=== PATIENT | female | born 1975 | race Caucasian/White ===

== ENCOUNTER → 2016-07-13 | Outpatient (CLI) | payer OTHER ==
--- NOTE | 2016-07-13 15:35 | MR ---
EXAMINATION TYPE: MR cervical spine wo con DATE OF EXAM: 07/13/2016 2:58 PM COMPARISON: NONE HISTORY: neck pain, arm pain, limited ROM for 6 months TECHNIQUE: Multiplanar, multisequence images of the cervical spine were acquired. C2-C3: No evidence for degenerative disc disease. No disc bulge/herniation or protrusion. No Canal stenosis. Foramina are patent bilaterally. C3-C4: Posterior broad-based disc bulge causes minimal anterior mass effect on the thecal sac. C4-C5: Posterior circumferential extension of endplate disc complex results in bilateral foraminal en croachment left greater than right, there is mild anterior mass effect on the thecal sac. No signific ant central stenosis. C5-C6: Posterior extension endplate disc complex causes mild anterior mass effect on the thecal sac, from encroachment is greater on the left than right. C6-C7: Posterior disc herniation may contact the anterior cervical cord, there is mild to moderate ce ntral canal stenosis. Circumferential extension endplate disc complex results in foraminal encroachme nt greater on the left than on the right, disc herniation thought to be eccentric towards the left ca using anterolateral mass effect on the thecal sac. C7-T1: No evidence for degenerative disc disease. No disc bulge/herniation or protrusion. No Canal stenosis. Foramina are patent bilaterally. Cervical segments are intact. There is normal alignment and vertebral body height. Cervical spinal cord is of normal signal. Loss of disc height and signal is greatest at C3-4, C4-5, C5-6 and C6-7 com patible with disc desiccation and degenerative disc disease. Craniovertebral junction relationships a re within normal limits. Spinal curvature suspected in the thoracic spine. IMPRESSION: Degenerative disc disease, disc herniation greatest at C6-7 causing canal stenosis, foraminal encroac hment greater on the left than on the right, correlate for left C7 radiculopathy. Possible thoracic s coliosis.
== END | disposition home or self-care (01) ==
LOC: RADMRIMAIN 14:21
PROVIDERS: ATTEND Psychiatry & Neurology Pain Medicine
DX: M48.02 Spinal stenosis, cervical region (principal); M50.223 Other cervical disc displacement at C6-C7 level; M50.323 Other cervical disc degeneration at C6-C7 level
CPT/HCPCS: 72141

== ENCOUNTER 2018-03-02 09:55 | Emergency (ER) | payer OTHER ==
[2018-03-02 10:14] VITALS: RESP 18
[2018-03-02] MEDS ORDERED: SODIUM CHLORIDE 0.9% 1,000 ML IV ONE (10:32)
--- NOTE | 2018-03-02 10:34 | ED ---
Female Urogenital HPI - General Chief complaint: Vaginal Bleeding Stated complaint: heavy bleeding Time Seen by Provider: 03/02/18 10:18 Source: patient, RN notes reviewed, old records reviewed Mode of arrival: ambulatory Limitations: no limitations - History of Present Illness Initial comments: Patient is a 42-year-old female presents the emergency department today with chief complaint of vaginal bleeding. She reports that she's had 3 periods within the past month. Patient reports that she called her OB. Patient reports that she's had more than 3 pads in the past hour and blood through 2 tampons. Patient states that she had her tubes tied a few years ago. Patient is concerned with the significant bleeding she's had a history of anemia and had to be in admitted in patiently in the past. She's had multiple blood transfusions from vaginal bleeding. Patient reports a few months ago she had another episode of heavy bleeding such as this. She called her primary care doctor and she is told to come here. Last Menstrual Period: 03/01/18 - Related Data Home Medications Medication Instructions Recorded Confirmed Multivitamins, Thera [Multivitamin] 1 tab PO DAILY 10/12/15 12/02/15 Folic(Dose Unknown) 1 tab PO DAILY 12/02/15 12/05/15 Vitamin B 12(Dose Unknown) 1 tab PO DAILY 12/02/15 12/02/15 Vitamin D 3(Dose Unknown) 1 tab PO DAILY 12/02/15 12/05/15 Previous Rx's Medication Instructions Recorded Desog-E.estradiol/E.estradiol 1 each PO DIRECTED #21 tablet 03/02/18 [Mircette 28 Day Tablet] Allergies Allergy/AdvReac Type Severity Reaction Status Date / Time latex Allergy Rash/Hives Verified 03/02/18 10:14 Review of Systems ROS Statement: Those systems with pertinent positive or pertinent negative responses have been documented in the HPI. ROS Other: All systems not noted in ROS Statement are negative. Past Medical History Past Medical History: Asthma, Pneumonia, Respiratory Disorder Additional Past Medical History / Comment(s): Obesity and she had Lap band and she lost >200 pounds since 2010, childhood asthma History of Any Multi-Drug Resistant Organisms: None Reported Past Surgical History: Bariatric Surgery, Cholecystectomy Additional Past Surgical History / Comment(s): lap band, oopherectomy Past Anesthesia/Blood Transfusion Reactions: No Reported Reaction Additional Past Anesthesia/Blood Transfusion Reaction / Comment(s): no family hx -adopted Past Psychological History: No Psychological Hx Reported Past Alcohol Use History: None Reported - Past Family History Father Family Medical History: Unable to Obtain Additional Family Medical History / Comment(s): patient was adopted General Exam - General Exam Comments Initial Comments: This is a 42-year-old female. Alert and oriented. No significant distress. Limitations: no limitations General appearance: alert, in no apparent distress Head exam: Present: atraumatic, normocephalic, normal inspection Eye exam: Present: normal appearance, PERRL, EOMI. Absent: scleral icterus, conjunctival injection, periorbital swelling ENT exam: Present: normal exam, mucous membranes moist Neck exam: Present: normal inspection. Absent: tenderness, meningismus, lymphadenopathy Respiratory exam: Present: normal lung sounds bilaterally. Absent: respiratory distress, wheezes, rales, rhonchi, stridor Cardiovascular Exam: Present: regular rate, normal rhythm, normal heart sounds. Absent: systolic murmur, diastolic murmur, rubs, gallop, clicks GI/Abdominal exam: Present: soft, normal bowel sounds. Absent: distended, tenderness, guarding, rebound, rigid Speculum exam: Present: vaginal bleeding. Absent: normal speculum exam By manual exam: Present: normal by manual exam Extremities exam: Present: normal inspection, full ROM, normal capillary refill. Absent: tenderness, pedal edema, joint swelling, calf tenderness Back exam: Present: normal inspection Neurological exam: Present: alert, oriented X3, CN II-XII intact Psychiatric exam: Present: normal affect, normal mood Course Vital Signs 03/02/18 03/02/18 10:12 13:38 Temperature 98.4 F 98.2 F Pulse Rate 63 64 Respiratory 18 18 Rate Blood Pressure 135/87 130/74 O2 Sat by Pulse 100 98 Oximetry Medical Decision Making - Medical Decision Making 42-year-old female presents to return with severe heavy vaginal bleeding. She is going through 2 blue check pads while she was here. Her hemoglobin is stable at time of 12.0. Ultrasound shows evidence of the leiomyoma. She's also help with TECHNICAL DATA ANALYST Dr. Lynn next week. She is concerned it may be tension was applied and the bleeding is coming more severe and she seemed be more anemic. We did call Dr. Lynn. He recommended 1 g of T x-ray. We'll also start the Patient on hormones until he follows up with her. Patient will also be started on antibiotics for urinary tract infection. Urine culture obtained. Patient understands treatment plan will comply. Return parameters were discussed. - Lab Data Result diagrams: 03/02/18 11:05 03/02/18 11:05 Lab Results 03/02/18 03/02/18 03/02/18 Range/Units 11:05 11:05 11:05 WBC 8.7 (3.8-10.6) k/uL RBC 4.40 (3.80-5.40) m/uL Hgb 12.8 (11.4-16.0) gm/dL Hct 41.2 (34.0-46.0) % MCV 93.7 (80.0-100.0) fL MCH 29.1 (25.0-35.0) pg MCHC 31.0 (31.0-37.0) g/dL RDW 14.1 (11.5-15.5) % Plt Count 240 (150-450) k/uL Neutrophils % (Manual) 77 % Lymphocytes % (Manual) 20 % Monocytes % (Manual) 3 % Neutrophils # (Manual) 6.70 (1.3-7.7) k/uL Lymphocytes # (Manual) 1.74 (1.0-4.8) k/uL Monocytes # (Manual) 0.26 (0-1.0) k/uL Nucleated RBCs 0 (0-0) /100 WBC Poikilocytosis (manual Present Anisocytosis (manual) Present Sodium 139 (137-145) mmol/L Potassium 4.2 (3.5-5.1) mmol/L Chloride 108 H (98-107) mmol/L Carbon Dioxide 25 (22-30) mmol/L Anion Gap 6 mmol/L BUN 16 (7-17) mg/dL Creatinine 0.70 (0.52-1.04) mg/dL Est GFR (CKD-EPI)AfAm >90 (>60 ml/min/1.73 sqM) Est GFR (CKD-EPI)NonAf >90 (>60 ml/min/1.73 sqM) Glucose 90 (74-99) mg/dL Calcium 8.6 (8.4-10.2) mg/dL Total Bilirubin 1.1 (0.2-1.3) mg/dL AST 16 (14-36) U/L ALT 23 (9-52) U/L Alkaline Phosphatase 52 (38-126) U/L Total Protein 6.3 (6.3-8.2) g/dL Albumin 3.4 L (3.5-5.0) g/dL Urine Color Yellow Urine Appearance Cloudy H (Clear) Urine pH 7.5 (5.0-8.0) Ur Specific Fossil 1.018 (1.001-1.035) Urine Protein Trace H (Negative) Urine Glucose (UA) Negative (Negative) Urine Ketones Negative (Negative) Urine Blood Large H (Negative) Urine Nitrite Positive H (Negative) Urine Bilirubin Negative (Negative) Urine Urobilinogen <2.0 (<2.0) mg/dL Ur Leukocyte Esterase Large H (Negative) Urine RBC >182 H (0-5) /hpf Urine WBC 57 H (0-5) /hpf Ur Squamous Epith Cells 2 (0-4) /hpf Amorphous Sediment Rare H (None) /hpf Urine Bacteria Many H (None) /hpf Urine Mucus Rare H (None) /hpf Blood Type Blood Type Recheck Antibody Screen Spec Expiration Date 03/02/18 Range/Units 11:05 WBC (3.8-10.6) k/uL RBC (3.80-5.40) m/uL Hgb (11.4-16.0) gm/dL Hct (34.0-46.0) % MCV (80.0-100.0) fL MCH (25.0-35.0) pg MCHC (31.0-37.0) g/dL RDW (11.5-15.5) % Plt Count (150-450) k/uL Neutrophils % (Manual) % Lymphocytes % (Manual) % Monocytes % (Manual) % Neutrophils # (Manual) (1.3-7.7) k/uL Lymphocytes # (Manual) (1.0-4.8) k/uL Monocytes # (Manual) (0-1.0) k/uL Nucleated RBCs (0-0) /100 WBC Poikilocytosis (manual Anisocytosis (manual) Sodium (137-145) mmol/L Potassium (3.5-5.1) mmol/L Chloride (98-107) mmol/L Carbon Dioxide (22-30) mmol/L Anion Gap mmol/L BUN (7-17) mg/dL Creatinine (0.52-1.04) mg/dL Est GFR (CKD-EPI)AfAm (>60 ml/min/1.73 sqM) Est GFR (CKD-EPI)NonAf (>60 ml/min/1.73 sqM) Glucose (74-99) mg/dL Calcium (8.4-10.2) mg/dL Total Bilirubin (0.2-1.3) mg/dL AST (14-36) U/L ALT (9-52) U/L Alkaline Phosphatase (38-126) U/L Total Protein (6.3-8.2) g/dL Albumin (3.5-5.0) g/dL Urine Color Urine Appearance (Clear) Urine pH (5.0-8.0) Ur Specific Fossil (1.001-1.035) Urine Protein (Negative) Urine Glucose (UA) (Negative) Urine Ketones (Negative) Urine Blood (Negative) Urine Nitrite (Negative) Urine Bilirubin (Negative) Urine Urobilinogen (<2.0) mg/dL Ur Leukocyte Esterase (Negative) Urine RBC (0-5) /hpf Urine WBC (0-5) /hpf Ur Squamous Epith Cells (0-4) /hpf Amorphous Sediment (None) /hpf Urine Bacteria (None) /hpf Urine Mucus (None) /hpf Blood Type O Negative Blood Type Recheck No Antibody Screen NEGATIVE Spec Expiration Date 03/05/2018 - 2305 - Radiology Data Radiology results: report reviewed Leiomyomata missed changes of the uterus noted. Disposition Clinical Impression: Dysfunctional uterine bleeding, Leiomyoma Disposition: HOME SELF-CARE Condition: Good Instructions: Dysfunctional Uterine Bleeding (ED) Additional Instructions: Patient has follow-up with primary care physician and TECHNICAL DATA ANALYST next week. Return to the emergency department if any alarming signs or symptoms occur. Prescriptions: Desog-E.estradiol/E.estradiol [Mircette 28 Day Tablet] 1 each PO DIRECTED # 21 tablet Is patient prescribed a controlled substance at d/c from ED?: No Referrals: Israel Presley MD [Primary Care Provider] - 1-2 days Time of Disposition: 14:09
[2018-03-02 11:23] LABS: ALT 23 U/L (9-52); AST 16 U/L (14-36); Albumin 3.4 g/dL (3.5-5.0); Alkaline Phosphatase 52 U/L (38-126); Anion Gap 6 mmol/L; Blood Urea Nitrogen 16 mg/dL (7-17); Calcium 8.6 mg/dL (8.4-10.2); Carbon Dioxide 25 mmol/L (22-30); Chloride 108 mmol/L (98-107); Glucose 90 mg/dL (74-99); HCT 41.2 % (34.0-46.0); HGB 12.8 gm/dL (11.4-16.0); MCH 29.1 pg (25.0-35.0); MCV 93.7 fL (80.0-100.0); Mean Platelet Volume 7.6; Platelet Count 240 k/uL (150-450); Potassium 4.2 mmol/L (3.5-5.1); RDW 14.1 % (11.5-15.5); Sodium 139 mmol/L (137-145); Total Bilirubin 1.1 mg/dL (0.2-1.3); Total Protein 6.3 g/dL (6.3-8.2); WBC 8.7 k/uL (3.8-10.6)
[2018-03-02 11:24] LABS: Amorphous Sediment,Urine Rare /hpf; Appearance,Urine Cloudy (Clear); Bacteria,Urine Many /hpf; Bilirubin,Urine Negative (Negative); Blood,Urine Large (Negative); Color,Urine Yellow; Glucose,Urine (UA) Negative (Negative); Ketones,Urine Negative (Negative); Leukocyte Esterase,Urine Large (Negative); Mucus,Urine Rare /hpf; Nitrite,Urine Positive (Negative); PH, Urine 7.5 (5.0-8.0); Protein,Urine Trace (Negative); RBC,Urine >182 /hpf (0-5); Specific Gravity,Urine 1.018 (1.001-1.035); Squamous Epithelial Cell,Urine 2 /hpf (0-4); Urobilinogen,Urine <2.0 mg/dL (<2.0); WBC,Urine 57 /hpf (0-5)
[2018-03-02 11:57] LABS: Lymphocytes # (M) 1.74 k/uL (1.0-4.8); Monocytes # (M) 0.26 k/uL (0-1.0); Neutrophils % (M) 77 %; Nucleated Red Blood Cells 0 /100 WBC (0-0); Total Cells Counted 100
[2018-03-02 11:58] LABS: Anisocytosis (M) Present; Poikilocytosis (M) Present
--- NOTE | 2018-03-02 12:08 | US ---
EXAMINATION TYPE: US transvaginal DATE OF EXAM: 03/02/2018 COMPARISON: US 2016 CLINICAL HISTORY: Pain. Irregular bleeding and lower back cramping x 1 month, 3, para 2, misc arriage 1, hx of left oophorectomy TECHNIQUE: Transvaginal ER exam. Date of LMP: 02/13/2018 EXAM MEASUREMENTS: Uterus: 7.7 x 4.7 x 6.3 cm Endometrial Stripe: 0.6 cm Right Ovary: not seen Left Ovary: surgically absent 1. Uterus: retroverted, nabothian cyst seen, heterogeneous echogenicity with 2.9 x 2.7 x 3.4cm isoec hoic lesion right fundus 2. Endometrium: appears mildly thin for patient's LMP 3. Right Ovary: not seen due to overlying peristalsing bowel 4. Left Ovary: surgically absent 5. Bilateral Adnexa: wnl 6. Posterior cul-de-sac: small amount of free fluid IMPRESSION: 1. Leiomyomatous changes of the uterus.
[2018-03-02 13:39] VITALS: TEMP 98.2
[2018-03-02] MEDS ORDERED: TRANEXAMIC ACID 1,000 MG in SODIUM CHLORIDE 0.9% 50 ML IVPB ONE (14:01)
--- NOTE | 2018-03-02 14:17 | ED ---
Medical Decision Making - Lab Data Result diagrams: 03/02/18 11:05 03/02/18 11:05 Lab Results 03/02/18 03/02/18 03/02/18 Range/Units 11:02 11:05 11:05 WBC 8.7 (3.8-10.6) k/uL RBC 4.40 (3.80-5.40) m/uL Hgb 12.8 (11.4-16.0) gm/dL Hct 41.2 (34.0-46.0) % MCV 93.7 (80.0-100.0) fL MCH 29.1 (25.0-35.0) pg MCHC 31.0 (31.0-37.0) g/dL RDW 14.1 (11.5-15.5) % Plt Count 240 (150-450) k/uL Neutrophils % (Manual) 77 % Lymphocytes % (Manual) 20 % Monocytes % (Manual) 3 % Neutrophils # (Manual) 6.70 (1.3-7.7) k/uL Lymphocytes # (Manual) 1.74 (1.0-4.8) k/uL Monocytes # (Manual) 0.26 (0-1.0) k/uL Nucleated RBCs 0 (0-0) /100 WBC Poikilocytosis (manual Present Anisocytosis (manual) Present Sodium 139 (137-145) mmol/L Potassium 4.2 (3.5-5.1) mmol/L Chloride 108 H (98-107) mmol/L Carbon Dioxide 25 (22-30) mmol/L Anion Gap 6 mmol/L BUN 16 (7-17) mg/dL Creatinine 0.70 (0.52-1.04) mg/dL Est GFR (CKD-EPI)AfAm >90 (>60 ml/min/1.73 sqM) Est GFR (CKD-EPI)NonAf >90 (>60 ml/min/1.73 sqM) Glucose 90 (74-99) mg/dL Calcium 8.6 (8.4-10.2) mg/dL Total Bilirubin 1.1 (0.2-1.3) mg/dL AST 16 (14-36) U/L ALT 23 (9-52) U/L Alkaline Phosphatase 52 (38-126) U/L Total Protein 6.3 (6.3-8.2) g/dL Albumin 3.4 L (3.5-5.0) g/dL Urine Color Urine Appearance (Clear) Urine pH (5.0-8.0) Ur Specific Tye (1.001-1.035) Urine Protein (Negative) Urine Glucose (UA) (Negative) Urine Ketones (Negative) Urine Blood (Negative) Urine Nitrite (Negative) Urine Bilirubin (Negative) Urine Urobilinogen (<2.0) mg/dL Ur Leukocyte Esterase (Negative) Urine RBC (0-5) /hpf Urine WBC (0-5) /hpf Ur Squamous Epith Cells (0-4) /hpf Amorphous Sediment (None) /hpf Urine Bacteria (None) /hpf Urine Mucus (None) /hpf Urine HCG, Qual Not Detected (Not Detectd) Blood Type Blood Type Recheck Antibody Screen Spec Expiration Date 03/02/18 03/02/18 Range/Units 11:05 11:05 WBC (3.8-10.6) k/uL RBC (3.80-5.40) m/uL Hgb (11.4-16.0) gm/dL Hct (34.0-46.0) % MCV (80.0-100.0) fL MCH (25.0-35.0) pg MCHC (31.0-37.0) g/dL RDW (11.5-15.5) % Plt Count (150-450) k/uL Neutrophils % (Manual) % Lymphocytes % (Manual) % Monocytes % (Manual) % Neutrophils # (Manual) (1.3-7.7) k/uL Lymphocytes # (Manual) (1.0-4.8) k/uL Monocytes # (Manual) (0-1.0) k/uL Nucleated RBCs (0-0) /100 WBC Poikilocytosis (manual Anisocytosis (manual) Sodium (137-145) mmol/L Potassium (3.5-5.1) mmol/L Chloride (98-107) mmol/L Carbon Dioxide (22-30) mmol/L Anion Gap mmol/L BUN (7-17) mg/dL Creatinine (0.52-1.04) mg/dL Est GFR (CKD-EPI)AfAm (>60 ml/min/1.73 sqM) Est GFR (CKD-EPI)NonAf (>60 ml/min/1.73 sqM) Glucose (74-99) mg/dL Calcium (8.4-10.2) mg/dL Total Bilirubin (0.2-1.3) mg/dL AST (14-36) U/L ALT (9-52) U/L Alkaline Phosphatase (38-126) U/L Total Protein (6.3-8.2) g/dL Albumin (3.5-5.0) g/dL Urine Color Yellow Urine Appearance Cloudy H (Clear) Urine pH 7.5 (5.0-8.0) Ur Specific Tye 1.018 (1.001-1.035) Urine Protein Trace H (Negative) Urine Glucose (UA) Negative (Negative) Urine Ketones Negative (Negative) Urine Blood Large H (Negative) Urine Nitrite Positive H (Negative) Urine Bilirubin Negative (Negative) Urine Urobilinogen <2.0 (<2.0) mg/dL Ur Leukocyte Esterase Large H (Negative) Urine RBC >182 H (0-5) /hpf Urine WBC 57 H (0-5) /hpf Ur Squamous Epith Cells 2 (0-4) /hpf Amorphous Sediment Rare H (None) /hpf Urine Bacteria Many H (None) /hpf Urine Mucus Rare H (None) /hpf Urine HCG, Qual (Not Detectd) Blood Type O Negative Blood Type Recheck No Antibody Screen NEGATIVE Spec Expiration Date 03/05/20182304 Disposition Clinical Impression: Dysfunctional uterine bleeding, Leiomyoma, UTI (urinary tract infection) Disposition: HOME SELF-CARE Condition: Good Instructions: Dysfunctional Uterine Bleeding (ED) Additional Instructions: Patient has follow-up with primary care physician and [employer] next week. Return to the emergency department if any alarming signs or symptoms occur. Prescriptions: Desog-E.estradiol/E.estradiol [Mircette 28 Day Tablet] 1 each PO DIRECTED # 21 tablet Nitrofurantoin Monohyd/M-Cryst [Macrobid] 100 mg PO Q12HR #14 cap Is patient prescribed a controlled substance at d/c from ED?: No Referrals: Israel Presley MD [Primary Care Provider] - 1-2 days Time of Disposition: 14:16
[2018-03-02 15:18] VITALS: BP 111/70; PULSE 54
[2018-03-02 19:19] LABS: Iron Saturation 30.47 (12.00-45.00)
== END 2018-03-02 15:18 | disposition home or self-care (01) ==
LOC: EC 09:55
DX: D25.9 Leiomyoma of uterus, unspecified (principal); N39.0 Urinary tract infection, site not specified; D64.9 Anemia, unspecified; E66.9 Obesity, unspecified; Z68.32 Body mass index [BMI] 32.0-32.9, adult; Z90.721 Acquired absence of ovaries, unilateral; Z98.84 Bariatric surgery status; Z91.040 Latex allergy status
CPT/HCPCS: 36415; 76830; 80053; 81001; 81025; 82728; 83540; 83550; 85025; 86850; 86900; 86901; 87086; 96361; 96365; 99284

== ENCOUNTER → 2018-03-14 | Outpatient (CLI) | payer OTHER ==
[2018-03-14 15:11] LABS: HCT 35.8 % (34.0-46.0); HGB 11.7 gm/dL (11.4-16.0); MCH 30.3 pg (25.0-35.0); MCHC 32.7 g/dL (31.0-37.0); MCV 92.5 fL (80.0-100.0); Mean Platelet Volume 7.7; Platelet Count 219 k/uL (150-450); RBC 3.87 m/uL (3.80-5.40); WBC 7.5 k/uL (3.8-10.6)
[2018-03-14 15:40] LABS: Lymphocytes # (M) 1.88 k/uL (1.0-4.8); Monocytes # (M) 0.23 k/uL (0-1.0); Neutrophils % (M) 72 %; Nucleated Red Blood Cells 0 /100 WBC (0-0); Total Cells Counted 100
[2018-03-14 15:41] LABS: Large Platelets Present
== END ==
LOC: LABPAT 14:26
PROVIDERS: ATTEND Obstetrics & Gynecology
DX: Z01.812 Encounter for preprocedural laboratory examination (principal); N93.8 Other specified abnormal uterine and vaginal bleeding; N92.0 Excessive and frequent menstruation with regular cycle
CPT/HCPCS: 36415; 85025

== ENCOUNTER 2018-03-16 23:24 | Emergency (ER) | payer OTHER ==
[2018-03-16] MEDS ORDERED: KETOROLAC 30 MG/ML 1 ML VIAL IVP STA (23:56)
[2018-03-16] MEDS ORDERED: SODIUM CHLORIDE 0.9% 1,000 ML IV STA (23:56)
[2018-03-16] MEDS ORDERED: MORPHINE SULFATE 2 MG/ML SYRINGE IVP STA (23:56)
[2018-03-16] MEDS ORDERED: ONDANSETRON 4 MG/2 ML VIAL IVP STA (23:56)
--- NOTE | 2018-03-17 | ED ---
Back Pain HPI - General Chief Complaint: Back Pain/Injury Stated Complaint: BACK PAIN Time Seen by Provider: 03/16/18 23:44 Source: patient Limitations: no limitations - History of Present Illness Initial Comments: 42-year-old female patient presents to the emergency department today for evaluation of right sided abdominal pain that radiates into her back. Patient states the pain is sharp and stabbing. Patient states that the pain in her abdomen is cramp like. Patient states that it started yesterday and has progressively been getting worse. Patient has been having issues with dysfunctional uterine bleeding and is scheduled to have a uterine ablation and D &C in one week. Patient states that she has never had pain like this with her bleeding. Patient denies any hematuria, dysuria, urinary frequency, urinary urgency. She denies any fevers or chills. States she is very nauseous and has vomited twice prior to arrival. Patient has had a cholecystectomy in the past. Patient denies any recent rash, shortness breath, chest pain, numbness, tingling , dizziness, weakness, headache, visual changes, or any other complaints. - Related Data Previous Rx's Medication Instructions Recorded Desog-E.estradiol/E.estradiol 1 each PO DIRECTED #21 tablet 03/02/18 [Mircette 28 Day Tablet] Ondansetron [Zofran ODT] 4 mg PO Q8HR PRN #10 tab 03/17/18 Sulfamethoxazole/Trimethoprim 1 each PO BID #14 tablet 03/17/18 [Bactrim DS 800-160 mg] Allergies Allergy/AdvReac Type Severity Reaction Status Date / Time latex Allergy Rash/Hives Verified 03/16/18 23:42 Review of Systems ROS Statement: Those systems with pertinent positive or pertinent negative responses have been documented in the HPI. ROS Other: All systems not noted in ROS Statement are negative. Past Medical History Past Medical History: Asthma, Pneumonia, Respiratory Disorder Additional Past Medical History / Comment(s): Obesity and she had Lap band and she lost >200 pounds since 2010, childhood asthma History of Any Multi-Drug Resistant Organisms: None Reported Past Surgical History: Bariatric Surgery, Cholecystectomy Additional Past Surgical History / Comment(s): lap band, oopherectomy Past Anesthesia/Blood Transfusion Reactions: No Reported Reaction Additional Past Anesthesia/Blood Transfusion Reaction / Comment(s): no family hx -adopted Past Psychological History: No Psychological Hx Reported Smoking Status: Never smoker Past Alcohol Use History: Occasional Past Drug Use History: None Reported - Past Family History Father Family Medical History: Unable to Obtain Additional Family Medical History / Comment(s): patient was adopted General Exam Limitations: no limitations General appearance: alert, in no apparent distress, other (This is a well- developed, well-nourished adult female patient in no acute distress. Vital signs upon presentation are temperature 98.5F, pulse 61, respirations 18, blood pressure 118/56, pulse ox 98% on room air.) Eye exam: Present: normal appearance, PERRL, EOMI. Absent: scleral icterus, conjunctival injection, periorbital swelling ENT exam: Present: normal exam, normal oropharynx, mucous membranes moist Respiratory exam: Present: normal lung sounds bilaterally. Absent: respiratory distress, wheezes, rales, rhonchi, stridor Cardiovascular Exam: Present: regular rate, normal rhythm, normal heart sounds. Absent: systolic murmur, diastolic murmur, rubs, gallop, clicks GI/Abdominal exam: Present: soft, normal bowel sounds. Absent: distended, tenderness, guarding, rebound, rigid Back exam: Present: normal inspection. Absent: CVA tenderness (R), CVA tenderness (L) Neurological exam: Present: alert, oriented X3, CN II-XII intact Psychiatric exam: Present: normal affect, normal mood Skin exam: Present: warm, dry, intact, normal color. Absent: rash Course Vital Signs 03/16/18 03/17/18 03/17/18 23:42 01:20 02:07 Temperature 98.5 F 99 F Pulse Rate 61 84 63 Respiratory 18 16 16 Rate Blood Pressure 118/56 87/50 96/61 O2 Sat by Pulse 98 96 97 Oximetry Medical Decision Making - Medical Decision Making 42-year-old female patient presented to the emergency department today for evaluation of right lower back pain with some lower abdominal cramping. Physical examination was relatively unremarkable. Patient had no abdominal tenderness and no CVA tenderness. Labs reviewed and did reveal evidence of a urinary tract infection however sample was contaminated. The patient will be treated with Keflex until urine culture is resulted. Did discuss findings and results with the patient. Did discuss possible musculoskeletal cause for her low back pain. She is instructed to follow-up with her primary care physician for recheck in 1-2 days. Return parameters were discussed in detail. She verbalizes understanding and agrees with this plan. - Lab Data Result diagrams: 03/17/18 00:10 03/17/18 00:10 Lab Results 03/17/18 03/17/18 03/17/18 Range/Units 00:10 00:10 00:10 WBC 10.6 (3.8-10.6) k/uL RBC 3.99 (3.80-5.40) m/uL Hgb 11.8 (11.4-16.0) gm/dL Hct 36.2 (34.0-46.0) % MCV 90.7 (80.0-100.0) fL MCH 29.5 (25.0-35.0) pg MCHC 32.6 (31.0-37.0) g/dL RDW 13.8 (11.5-15.5) % Plt Count 214 (150-450) k/uL Neutrophils % (Manual) 76 % Band Neutrophils % 3 % Lymphocytes % (Manual) 20 % Monocytes % (Manual) 1 % Neutrophils # BUILDING OPERATOR Neutrophils # (Manual) 8.30 H (1.3-7.7) k/uL Lymphocytes # (Manual) 2.12 (1.0-4.8) k/uL Monocytes # (Manual) 0.11 (0-1.0) k/uL Nucleated RBCs 0 (0-0) /100 WBC Manual Slide Review Performed Poikilocytosis (manual Present Sodium 139 (137-145) mmol/L Potassium 4.2 (3.5-5.1) mmol/L Chloride 106 (98-107) mmol/L Carbon Dioxide 26 (22-30) mmol/L Anion Gap 7 mmol/L BUN 17 (7-17) mg/dL Creatinine 0.78 (0.52-1.04) mg/dL Est GFR (CKD-EPI)AfAm >90 (>60 ml/min/1.73 sqM) Est GFR (CKD-EPI)NonAf >90 (>60 ml/min/1.73 sqM) Glucose 102 H (74-99) mg/dL Plasma Lactic Acid Adrian (0.7-2.0) mmol/L Calcium 8.6 (8.4-10.2) mg/dL Total Bilirubin 0.4 (0.2-1.3) mg/dL AST 12 L (14-36) U/L ALT 22 (9-52) U/L Alkaline Phosphatase 45 (38-126) U/L Total Protein 6.0 L (6.3-8.2) g/dL Albumin 3.2 L (3.5-5.0) g/dL Amylase 81 (30-110) U/L Lipase 65 (23-300) U/L Urine Color Urine Appearance (Clear) Urine pH (5.0-8.0) Ur Specific [place] (1.001-1.035) Urine Protein (Negative) Urine Glucose (UA) (Negative) Urine Ketones (Negative) Urine Blood (Negative) Urine Nitrite (Negative) Urine Bilirubin (Negative) Urine Urobilinogen (<2.0) mg/dL Ur Leukocyte Esterase (Negative) Urine RBC (0-5) /hpf Urine WBC (0-5) /hpf Ur Squamous Epith Cells (0-4) /hpf Urine Mucus (None) /hpf Urine HCG, Qual Not Detected (Not Detectd) 03/17/18 03/17/18 Range/Units 00:10 00:10 WBC (3.8-10.6) k/uL RBC (3.80-5.40) m/uL Hgb (11.4-16.0) gm/dL Hct (34.0-46.0) % MCV (80.0-100.0) fL MCH (25.0-35.0) pg MCHC (31.0-37.0) g/dL RDW (11.5-15.5) % Plt Count (150-450) k/uL Neutrophils % (Manual) % Band Neutrophils % % Lymphocytes % (Manual) % Monocytes % (Manual) % Neutrophils # Neutrophils # (Manual) (1.3-7.7) k/uL Lymphocytes # (Manual) (1.0-4.8) k/uL Monocytes # (Manual) (0-1.0) k/uL Nucleated RBCs (0-0) /100 WBC Manual Slide Review Poikilocytosis (manual Sodium (137-145) mmol/L Potassium (3.5-5.1) mmol/L Chloride (98-107) mmol/L Carbon Dioxide (22-30) mmol/L Anion Gap mmol/L BUN (7-17) mg/dL Creatinine (0.52-1.04) mg/dL Est GFR (CKD-EPI)AfAm (>60 ml/min/1.73 sqM) Est GFR (CKD-EPI)NonAf (>60 ml/min/1.73 sqM) Glucose (74-99) mg/dL Plasma Lactic Acid Adrian 0.5 L (0.7-2.0) mmol/L Calcium (8.4-10.2) mg/dL Total Bilirubin (0.2-1.3) mg/dL AST (14-36) U/L ALT (9-52) U/L Alkaline Phosphatase (38-126) U/L Total Protein (6.3-8.2) g/dL Albumin (3.5-5.0) g/dL Amylase (30-110) U/L Lipase (23-300) U/L Urine Color Yellow Urine Appearance Cloudy H (Clear) Urine pH 5.0 (5.0-8.0) Ur Specific [place] 1.020 (1.001-1.035) Urine Protein Negative (Negative) Urine Glucose (UA) Negative (Negative) Urine Ketones Negative (Negative) Urine Blood Large H (Negative) Urine Nitrite Negative (Negative) Urine Bilirubin Negative (Negative) Urine Urobilinogen <2.0 (<2.0) mg/dL Ur Leukocyte Esterase Moderate H (Negative) Urine RBC 2 (0-5) /hpf Urine WBC 18 H (0-5) /hpf Ur Squamous Epith Cells 10 H (0-4) /hpf Urine Mucus Rare H (None) /hpf Urine HCG, Qual (Not Detectd) Disposition Clinical Impression: Acute low back pain, Abdominal pain, Urinary tract infection Disposition: HOME SELF-CARE Condition: Good Instructions: Urinary Tract Infection in Women (ED), Acute Low Back Pain (ED), Abdominal Pain (ED) Additional Instructions: Take medications as directed. Follow-up with your primary care physician for recheck in 1-2 days. Return here immediately for any new, worsening, or concerning symptoms. Prescriptions: Ondansetron [Zofran ODT] 4 mg PO Q8HR PRN #10 tab PRN Reason: Nausea Sulfamethoxazole/Trimethoprim [Bactrim DS 800-160 mg] 1 each PO BID #14 tablet Is patient prescribed a controlled substance at d/c from ED?: No Referrals: Israel Presley MD [Primary Care Provider] - 1-2 days Time of Disposition: 02:10
[2018-03-17 00:26] LABS: Appearance,Urine Cloudy (Clear); Bilirubin,Urine Negative (Negative); Blood,Urine Large (Negative); Color,Urine Yellow; Glucose,Urine (UA) Negative (Negative); Ketones,Urine Negative (Negative); Leukocyte Esterase,Urine Moderate (Negative); Mucus,Urine Rare /hpf; Nitrite,Urine Negative (Negative); Protein,Urine Negative (Negative); RBC,Urine 2 /hpf (0-5); Squamous Epithelial Cell,Urine 10 /hpf (0-4); Urobilinogen,Urine <2.0 mg/dL (<2.0); WBC,Urine 18 /hpf (0-5)
[2018-03-17 00:31] LABS: ALT 22 U/L (9-52); AST 12 U/L (14-36); Albumin 3.2 g/dL (3.5-5.0); Alkaline Phosphatase 45 U/L (38-126); Amylase 81 U/L (30-110); Anion Gap 7 mmol/L; Blood Urea Nitrogen 17 mg/dL (7-17); Calcium 8.6 mg/dL (8.4-10.2); Carbon Dioxide 26 mmol/L (22-30); Chloride 106 mmol/L (98-107); Glucose 102 mg/dL (74-99); Lipase 65 U/L (23-300); Potassium 4.2 mmol/L (3.5-5.1); Sodium 139 mmol/L (137-145); Total Bilirubin 0.4 mg/dL (0.2-1.3)
[2018-03-17 00:40] LABS: HCT 36.2 % (34.0-46.0); HGB 11.8 gm/dL (11.4-16.0); MCH 29.5 pg (25.0-35.0); MCHC 32.6 g/dL (31.0-37.0); MCV 90.7 fL (80.0-100.0); Mean Platelet Volume 8.3; Platelet Count 214 k/uL (150-450); RBC 3.99 m/uL (3.80-5.40); RDW 13.8 % (11.5-15.5); WBC 10.6 k/uL (3.8-10.6)
[2018-03-17 01:15] LABS: Band Neutrophils % 3 %; Lymphocytes # (M) 2.12 k/uL (1.0-4.8); Monocytes # (M) 0.11 k/uL (0-1.0); Neutrophils % (M) 76 %; Nucleated Red Blood Cells 0 /100 WBC (0-0); Poikilocytosis (M) Present; Total Cells Counted 100
[2018-03-17] MEDS ORDERED: SODIUM CHLORIDE 0.9% 500 ML IV STA (01:21)
[2018-03-17 01:23] VITALS: RESP 16; TEMP 99
[2018-03-17 02:08] VITALS: BP 96/61; PULSE 63
[2018-03-17] MEDS ORDERED: ONDANSETRON 4 MG ODT STARTER PACK 2 TAB BTL PO STA (02:10)
== END 2018-03-17 02:20 | disposition home or self-care (01) ==
LOC: EC 23:24
DX: N39.0 Urinary tract infection, site not specified (principal); M54.5 Low back pain; R10.30 Lower abdominal pain, unspecified; E66.9 Obesity, unspecified; Z68.32 Body mass index [BMI] 32.0-32.9, adult; Z91.040 Latex allergy status; Z90.49 Acquired absence of other specified parts of digestive tract; Z98.84 Bariatric surgery status
CPT/HCPCS: 36415; 80053; 82150; 83605; 83690; 85025; 81001; 81025; 87086; 99283; 96374; 96375 ×2; 96361 ×2; J2405; J1885; J2270; S0119

== ENCOUNTER → 2018-03-20 | Day surgery (SDC) | payer OTHER ==
[2018-03-15 08:39] VITALS: BMI 33.5
[~2018-03-20] MED LIST: ACETAMINOPHEN TAB 325 MG TAB PO PRN; ALBUTEROL NEBULIZED 2.5 MG/3 ML INHALATION ONE; Acetaminophen-Codeine 300-30mg TAB PO PRN; DEXAMETHASONE SOD PHOSPHATE 10 MG/ML 1 ML VIAL IV ONE; GLYCOPYRROLATE 0.2 MG/ML 2 ML VIAL ONE; HYDROmorphone 0.5 MG/0.5 ML SYRINGE IVP PRN; IBUPROFEN 600 MG TAB PO PRN; KETOROLAC 30 MG/ML 1 ML VIAL IVP PRN; LACTATED RINGERS 1,000 ML IV SCH; LIDOCAINE 1% 20 ML VIAL (10MG/ML) FOR IV START INTRADERMA ONE; LIDOCAINE 1% INJ 10MG/ML (20 ML MDV) ONE; METOCLOPRAMIDE 5 MG/ML 2 ML VIAL IVP PRN; MIDAZOLAM 2 MG/2 ML VIAL ONE; NEOSTIGMINE 1 MG/ML 10 ML VIAL ONE; ONDANSETRON 4 MG/2 ML VIAL IVP ONE; ONDANSETRON 4 MG/2 ML VIAL IVP PRN; PROPOFOL 10 MG/ML 20 ML VIAL IV ONE; Pre Op ABX Message 1 EACH MISC MISCELLANE ONE; ROCURONIUM BROMIDE 10 MG/ML 10 ML VIAL IV ONE; SIMETHICONE 80 MG CHEWABLE PO PRN; diphenhydrAMINE 50 MG/ML 1 ML VIAL IVP PRN; fentaNYL (PF) 50 MCG/ML 2 ML AMP IVP ONE; fentaNYL (PF) 50 MCG/ML 2 ML AMP ONE
--- NOTE | 2018-03-20 10:11 | P.OP ---
Date of Procedure: 03/20/18 Preoperative Diagnosis: #1. Menorrhagia #2. Dysfunctional uterine bleeding Postoperative Diagnosis: Same Procedure(s) Performed: #1. Diagnostic hysteroscopy #2. NovaSure endometrial ablation Anesthesia: AMI Surgeon: José Miguel Camacho Estimated Blood Loss (ml): 5 IV fluids (ml): 350 Urine output (ml): 5 Pathology: none sent Condition: stable Disposition: PACU Operative Findings: Preoperative pelvic examination demonstrated a 4-5 week slightly anteverted mobile normal shaped uterus with normal adnexa bilaterally. Intraoperatively, the uterus sounded to 8 cm while the cervix was approximately 3-1/2 cm. Using the hysteroscope, the bilateral tubal ostia were seen. There was no evidence of pathology with not a significant amount of tissue noted. No fibroids or polyps were noted. The settings for the NovaSure tool where a length of 4.5 cm , a width of 4.5 cm, for a total power of 111 W. After a total run time of 52 seconds, the base unit read "procedure complete." The postprocedural hysteroscopic result appeared to be excellent. The patient is a probable candidate for vaginal hysterectomy should it become necessary. Description of Procedure: The patient was prepped and draped in usual fashion after general endotracheal anesthesia was administered by the anesthesiologist. A weighted speculum was placed and the bladder was draining approximate 5 mL of clear celsa urine. The anterior lip of the cervix was grasped with a single-tooth tenaculum and the uterus and cervix sounded to 8 cm and 3.5 cm respectively. Serial dilation was carried out to admit the diagnostic hysteroscope which was placed to the fundus and the cavity distended with saline. The findings are as noted above with no evidence of pathology and the bilateral tubal ostia were seen. After adequate hysteroscopy, the scope was set aside and the NovaSure tool placed into the endometrial cavity, opened, and seated well. The settings as noted above with a length of 4.5 cm, a width of 4.5 cm for a total power 111 W. The cavity check was attempted and passed without difficulty. The tool was enabled and the run was started. After total run time of 52 seconds, the tool disengaged and the base unit read "procedure complete." The 2 was closed, removed, and discarded. The diagnostic hysteroscope was replaced within the endometrial cavity and the result appeared to be excellent. Estimated blood loss for the case was less than 5 mL. There were no complications. All sponge, instrument, and needle counts were correct. The patient tolerated the procedure well and proceeded to the recovery room in stable condition. The patient has adequate or borderline adequate descensus for vaginal hysterectomy should it become necessary in the future.
[2018-03-20 10:17] VITALS: TEMP 97.8
[2018-03-20 10:26] VITALS: RESP 16
[2018-03-20 11:21] VITALS: BP 112/60; PULSE 72
== END | disposition home or self-care (01) ==
LOC: OR 06:58
PROVIDERS: ATTEND Obstetrics & Gynecology
DX: N92.0 Excessive and frequent menstruation with regular cycle (principal); N93.8 Other specified abnormal uterine and vaginal bleeding; J45.909 Unspecified asthma, uncomplicated; Z79.2 Long term (current) use of antibiotics; Z79.3 Long term (current) use of hormonal contraceptives; Z91.040 Latex allergy status
CPT/HCPCS: 81025; 58563; J2250; J1100; J2710; J2405; J2001; J3010; J2704

== ENCOUNTER → 2018-05-23 | Outpatient (CLI) | payer OTHER ==
[2018-05-23 15:54] LABS: HCT 39.1 % (34.0-46.0); HGB 12.7 gm/dL (11.4-16.0); MCH 29.4 pg (25.0-35.0); MCHC 32.5 g/dL (31.0-37.0); MCV 90.4 fL (80.0-100.0); Mean Platelet Volume 7.3; Platelet Count 332 k/uL (150-450); RBC 4.33 m/uL (3.80-5.40); RDW 14.1 % (11.5-15.5); WBC 7.5 k/uL (3.8-10.6)
[2018-05-23 17:55] LABS: Eosinophils # (M) 0.15 k/uL (0-0.7); Lymphocytes # (M) 2.55 k/uL (1.0-4.8); Neutrophils % (M) 64 %; Nucleated Red Blood Cells 0 /100 WBC (0-0); Total Cells Counted 100
[2018-05-23 17:57] LABS: Poikilocytosis (M) Present
== END ==
LOC: LABPAT 15:22
PROVIDERS: ATTEND Obstetrics & Gynecology
DX: Z01.812 Encounter for preprocedural laboratory examination (principal); N92.1 Excessive and frequent menstruation with irregular cycle
CPT/HCPCS: 85025; 87086

== ENCOUNTER → 2018-05-23 | Outpatient (CLI) | payer OTHER ==
[2018-05-23 16:13] LABS: INR 0.9 (<1.2); Partial Thromboplastin Time 24.8 sec (22.0-30.0); Prothrombin Time 9.5 sec (9.0-12.0)
[2018-05-24 07:19] LABS: T4, Free (Free Thyroxine) 1.1 ng/dL (0.80-1.80)
[2018-05-24 11:47] LABS: Albumin 4.3 g/dL (3.80-4.90); Albumin/Globulin Ratio 1.79 (1.20-2.10); Anion Gap 12.3 mmol/L (4.00-12.00); Calcium 9.5 mg/dL (8.7-10.3); Carbon Dioxide 24.7 mmol/L (21.6-31.8); Globulin 2.4 g/dL (2.1-3.7); LDL Cholesterol,Calculated 113.8 mg/dL (0.0-131.0); Potassium 4.7 mmol/L (3.5-5.5); Total Bilirubin 0.6 mg/dL (0.2-1.2); Total Protein 6.7 g/dL (6.2-8.2); VLDL Calculation 21.2 mg/dL (5.00-40.00)
== END ==
LOC: LABWHC1 15:20
PROVIDERS: ATTEND Family Medicine
DX: Z00.00 Encounter for general adult medical examination without abnormal findings (principal)
CPT/HCPCS: 36415; 80053; 80061; 84439; 84443; 85610; 85730

== ENCOUNTER 2018-05-30 05:43 | Observation (INO) | payer OTHER ==
[~2018-05-30 05:43] MED LIST changes: -ACETAMINOPHEN TAB 325 MG TAB PO PRN; -ALBUTEROL NEBULIZED 2.5 MG/3 ML INHALATION ONE; -Acetaminophen-Codeine 300-30mg TAB PO PRN; -GLYCOPYRROLATE 0.2 MG/ML 2 ML VIAL ONE; -IBUPROFEN 600 MG TAB PO PRN; -KETOROLAC 30 MG/ML 1 ML VIAL IVP PRN; -LACTATED RINGERS 1,000 ML IV SCH; -LIDOCAINE 1% 20 ML VIAL (10MG/ML) FOR IV START INTRADERMA ONE; -LIDOCAINE 1% INJ 10MG/ML (20 ML MDV) ONE; -METOCLOPRAMIDE 5 MG/ML 2 ML VIAL IVP PRN; -MIDAZOLAM 2 MG/2 ML VIAL ONE; +MORPHINE SULFATE 4 MG/ML SYRINGE IV PRN; -NEOSTIGMINE 1 MG/ML 10 ML VIAL ONE; -PROPOFOL 10 MG/ML 20 ML VIAL IV ONE; -Pre Op ABX Message 1 EACH MISC MISCELLANE ONE; -ROCURONIUM BROMIDE 10 MG/ML 10 ML VIAL IV ONE; -SIMETHICONE 80 MG CHEWABLE PO PRN; +ceFAZolin IN SWFI 2 GM/20 ML SYRINGE IVP ONE; -diphenhydrAMINE 50 MG/ML 1 ML VIAL IVP PRN; -fentaNYL (PF) 50 MCG/ML 2 ML AMP IVP ONE; -fentaNYL (PF) 50 MCG/ML 2 ML AMP ONE
[2018-05-30] MEDS ORDERED: LIDOCAINE 1% 20 ML VIAL (10MG/ML) FOR IV START INTRADERMA ONE (06:32)
[2018-05-30] MEDS: LACTATED RINGERS 1,000 ML IV SCH ×3 (06:38→19:29)
[2018-05-30] MEDS ORDERED: MIDAZOLAM 2 MG/2 ML VIAL IV ONE (07:05)
[2018-05-30] MEDS ORDERED: KETOROLAC 30 MG/ML 1 ML VIAL ONE (07:30)
[2018-05-30] MEDS ORDERED: fentaNYL (PF) 50 MCG/ML 2 ML AMP ONE (07:30)
[2018-05-30] MEDS ORDERED: LIDOCAINE 1% INJ 10MG/ML (20 ML MDV) ONE (07:30)
[2018-05-30] MEDS ORDERED: PROPOFOL 10 MG/ML 20 ML VIAL IV ONE (07:30)
[2018-05-30] MEDS ORDERED: SUCCINYLCHOLINE CHLORIDE 100 MG/5 ML SYR IV ONE (07:30)
[2018-05-30] MEDS ORDERED: MORPHINE SULFATE (PF) 0.3 MG/0.3 ML SYR ONE (07:30)
[2018-05-30] MEDS ORDERED: diphenhydrAMINE ELIXIR 25 MG/10 ML CUP PO PRN ×2 (07:34→11:08)
[2018-05-30] MEDS ORDERED: NALOXONE 0.4 MG/ML 1 ML VIAL IV PRN (07:34)
[2018-05-30] MEDS ORDERED: MORPHINE SULFATE 2 MG/ML SYRINGE IVP PRN (07:34)
[2018-05-30] MEDS ORDERED: diphenhydrAMINE 50 MG/ML 1 ML VIAL IVP PRN (07:39)
[2018-05-30] MEDS ORDERED: Acetaminophen-Codeine 300-30mg TAB PO PRN ×2 (07:39)
[2018-05-30] MEDS ORDERED: BACITRACIN 500 UNIT/GM OINT 28.4 GM TUBE TOPICAL ONE (07:55)
[2018-05-30] MEDS ORDERED: VASOPRESSIN 20 UNIT in SODIUM CHLORIDE 0.9% 60 ML SQ ONE (07:59)
--- NOTE | 2018-05-30 08:35 | P.OP ---
Date of Procedure: 05/30/18 Preoperative Diagnosis: #1. Dysfunctional uterine bleeding #2. Status post endometrial ablation Postoperative Diagnosis: Same Procedure(s) Performed: #1. Vaginal hysterectomy Anesthesia: SHANEKAA Surgeon: José Miguel Camacho Six Sigma Project Manager #1: Senait Calderon Estimated Blood Loss (ml): 20 IV fluids (ml): 600 Urine output (ml): 10 Pathology: other (Uterus) Condition: stable Disposition: PACU Operative Findings: Preoperative pelvic examination confirmed the findings at the time of admission ablation with grade 2+ uterine prolapse. Intraoperatively, the right ovary was seen and the left ovary appears to be surgically absent. There was some degree of cystocele and rectocele present which was not appreciated at previous surgery. Description of Procedure: The patient was prepped and draped in usual fashion after general endotracheal anesthesia was administered by the anesthesiologist. A weighted speculum was placed and the bladder drained of approximately 10 mL of clear celsa urine. The anterior lip of the cervix was grasped with single-tooth tenaculum and the cervicovaginal mucosa was infused with diluted vasopressin solution. The cervicovaginal mucosa was then incised circumferentially with a scalpel and reflected distally both bluntly and sharply. The posterior peritoneum was identified and incised sharply with the Sanders scissors, then tagged with a 2-0 Vicryl for later use. The short weighted speculum was replaced with the long weighted speculum. Curved Paulo-Timblin clamps are utilized to clamp the uterosacral ligament on each side where it was cut and suture-ligated with a transfixion stitch of 0 Vicryl. Serial bites were taken up the cardinal ligament on each side, each being cut and transfixion sutured with a stitch of 0 Vicryl. After several stitches on each side, the uterus was inverted posteriorly allowing easy identification of the anterior peritoneum which was opened sharply. This isolated the utero-ovarian ligament on each side. Each was clamped with a curved Heraclio Timblin clamp allowing a mutation of the specimen from the patient where it was sent for pathological diagnoses. The utero-ovarian ligament on each side was suture ligated with transfixion stitch of 0 Vicryl followed by free tie of 0 Vicryl. Hemostasis at the pedicles appeared to be excellent. The right ovary appeared to be normal as noted above and the left ovary appeared to be surgically absent. The long weighted speculum was replaced with the short weighted speculum and the stitch of 2-0 Vicryl previously placed into the peritoneal edge was utilized to close the parietal peritoneum in a pursestring stitch. The uterosacral ligaments were then sutured to the contralateral side bilaterally with 0 Vicryl and through the vaginal mucosa with a were tied down firmly in a modified Vera's culdoplasty. The intervening open vaginal mucosa was closed with interrupted [id number] stitches of 0 Vicryl. Estimated blood loss for the entire case was approximately 20 mL. There were no complications. All sponge, instrument, and needle counts were correct. The patient tolerated the procedure well and proceeded to the recovery room in stable condition.
[2018-05-30 10:04] VITALS: BMI 32.9
[2018-05-30] MEDS: diphenhydrAMINE 50 MG/ML 1 ML VIAL IVP PRN ×2 (12:00→21:49)
[2018-05-30] MEDS: SENNOSIDES-DOCUSATE SODIUM 1 EACH TAB PO SCH ×2 (15:35→21:58)
[2018-05-30 19:27] VITALS: TEMP 98.4
[2018-05-30] MEDS: KETOROLAC 30 MG/ML 1 ML VIAL IVP PRN (21:48)
[2018-05-31] MEDS: LACTATED RINGERS 1,000 ML IV SCH ×2 (00:19→02:30)
[2018-05-31] MEDS ORDERED: METOCLOPRAMIDE 5 MG/ML 2 ML VIAL IVP STA (00:46)
[2018-05-31 07:05] LABS: HCT 31.9 % (34.0-46.0); HGB 10.3 gm/dL (11.4-16.0); MCH 29.1 pg (25.0-35.0); MCHC 32.1 g/dL (31.0-37.0); MCV 90.7 fL (80.0-100.0); Mean Platelet Volume 7.6; Platelet Count 219 k/uL (150-450); RBC 3.52 m/uL (3.80-5.40); RDW 13.9 % (11.5-15.5)
[2018-05-31] MEDS: SENNOSIDES-DOCUSATE SODIUM 1 EACH TAB PO SCH (08:29)
[2018-05-31] MEDS: KETOROLAC 30 MG/ML 1 ML VIAL IVP PRN (08:30)
--- NOTE | 2018-05-31 08:46 | P.DS ---
Providers Date of admission: 05/31/18 06:46 Expected date of discharge: 05/31/18 Attending physician: José Miguel Camacho Primary care physician: Israel Presley - Discharge Diagnosis(es) (1) Dysfunctional uterine bleeding Current Visit: Yes Status: Acute (2) Status post endometrial ablation Current Visit: Yes Status: Acute Hospital Course: The patient is a 43-year-old woman who approximately 8-10 weeks ago underwent NovaSure endometrial ablation for menorrhagia. Since the time of the ablation, she has continued to have almost daily bleeding and has requested definitive therapy with hysterectomy. She is a candidate for vaginal hysterectomy and was taken the operating room where that procedure was performed in an incompetent fashion without difficulty. Her postoperative course was unremarkable vital signs ringing stable and her temperature was afebrile throughout. She was deemed stable for discharge by postoperative day #1 was discharged home to follow-up in the office in 2 weeks for recheck and 6 weeks routinely. Discharge instructions included calling for any significantly increased bleeding , fever, abdominal pain, GI concerns, or anything else that concerned her. She was additionally instructed to have nothing in the vagina for at least 6 weeks time to include intercourse. She understood her instructions and agrees to follow up as noted above. Discharge medications included [id number] analgesic pain medications as well as any home medications she may take. She was provided with a prescription for Tylenol 3 elixir, 5 mL every 6 hours when necessary pain, 3 day supply dispensed with no refills. Discharge hemoglobin and hematocrit were 10.3 and 31.9 respectively. Procedures: #1. Vaginal hysterectomy Patient Condition at Discharge: Stable Plan - Discharge Summary Discharge Rx Participant: Yes New Discharge Prescriptions: No Action Ibuprofen [Motrin] 600 mg PO Q8HR PRN PRN Reason: Pain Discharge Medication List Ibuprofen [Motrin] 600 mg PO Q8HR PRN 05/22/18 [History] Follow up Appointment(s)/Referral(s): José Miguel Camacho MD [STAFF PHYSICIAN] - 2 Weeks Discharge Disposition: HOME SELF-CARE
[2018-05-31 08:49] LABS: Neutrophils % (M) 70 %; Nucleated Red Blood Cells 0 /100 WBC (0-0); Total Cells Counted 100
[2018-05-31 08:50] LABS: Poikilocytosis (M) Present
[2018-05-31 10:40] VITALS: RESP 20
[2018-05-31 11:21] VITALS: BP 100/50; PULSE 62
--- NOTE | 2018-05-31 13:18 | P.PN ---
Progress Note - Text 05/31 702am 43 yr 0ld female s/p vaginal hyst.pt had a duramorph spinal for pain control, vas of 4,comforable.c/o of pruritis which should resolve soon.
== END 2018-05-31 14:30 | disposition home or self-care (01) ==
LOC: OR 05:43 → 4FBP 08:29 → OR 05-31 06:46 → 4FBP 05-31 06:46
PROVIDERS: ADMIT Obstetrics & Gynecology; ATTEND Obstetrics & Gynecology
DX: N80.0 Endometriosis of uterus (principal); N93.8 Other specified abnormal uterine and vaginal bleeding; N92.1 Excessive and frequent menstruation with irregular cycle; N81.4 Uterovaginal prolapse, unspecified; L29.9 Pruritus, unspecified; K21.9 Gastro-esophageal reflux disease without esophagitis; Z91.048 Other nonmedicinal substance allergy status; Z91.018 Allergy to other foods; Z91.040 Latex allergy status; Z98.84 Bariatric surgery status; Z90.49 Acquired absence of other specified parts of digestive tract; Z87.440 Personal history of urinary (tract) infections; Z87.09 Personal history of other diseases of the respiratory system; Z87.42 Personal history of other diseases of the female genital tract
CPT/HCPCS: 81025; 85025; 88307; 58260; G0378; J2250; J1200; J1100; J2765; J2405; J2001; J2274; J3010; J1885 ×2; J2270; J0330; J2704; J0690; 86850; 86900; 86901

== ENCOUNTER 2019-06-08 14:37 | Emergency (ER) | payer OTHER ==
[2019-06-08] MEDS ORDERED: KETOROLAC 30 MG/ML 1 ML VIAL IM STA (16:57)
[2019-06-08] MEDS ORDERED: DIAZEPAM 5 MG/ML 2 ML INJ IM ONE (16:57)
--- NOTE | 2019-06-08 17:03 | ED ---
General Adult HPI - General Chief complaint: Extremity Injury, Upper Stated complaint: pinched nerve Time Seen by Provider: 06/08/19 16:39 Source: patient, RN notes reviewed, old records reviewed Mode of arrival: ambulatory Limitations: no limitations - History of Present Illness Initial comments: 44-year-old female presents for evaluation of right shoulder pain right-sided neck pain. Said symptoms for the past one day. She's had previous symptoms exactly the same as today approximately 2 or 3 years ago. She didn't seek evaluation at that time including MRI. She had a follow-up with neurosurgery but did not have any symptoms at the time of follow-up and has not had any need for surgery or treatment until today. She's had worsening pain with movement or palpation in the right shoulder and right side of her neck. No injury. No chest pain or dyspnea. No lower extremity pain or tingling. She has some numbness and tingling in the right arm which is consistent with previous episodes exactly the same as today. - Related Data Home Medications Medication Instructions Recorded Confirmed Ibuprofen [Motrin] 600 mg PO Q8HR PRN 05/22/18 05/30/18 Previous Rx's Medication Instructions Recorded Cyclobenzaprine [Flexeril] 5 mg PO TID PRN #15 tablet 06/08/19 HYDROcodone/APAP 5-325MG [[place] 1 tab PO Q6HR PRN #12 tab 06/08/19 5-325] Ibuprofen [Motrin] 600 mg PO Q8HR PRN #24 tab 06/08/19 Allergies Allergy/AdvReac Type Severity Reaction Status Date / Time cat dander Allergy Unknown Verified 05/30/18 06:24 feathers Allergy Unknown Verified 05/30/18 06:24 latex Allergy Rash/Hives Verified 05/30/18 06:24 strawberry Allergy Rash/Hives Verified 05/30/18 06:24 Review of Systems ROS Statement: Those systems with pertinent positive or pertinent negative responses have been documented in the HPI. ROS Other: All systems not noted in ROS Statement are negative. Past Medical History Past Medical History: Asthma, Blood Disorder, GERD/Reflux, Pneumonia Additional Past Medical History / Comment(s): Childhood asthma. Anemia, resolved for the last year. Pneumonia 2 yrs ago. History of Any Multi-Drug Resistant Organisms: None Reported Past Surgical History: Bariatric Surgery, Cholecystectomy, Hysterectomy Additional Past Surgical History / Comment(s): Lap band, oopherectomy. Past Anesthesia/Blood Transfusion Reactions: No Reported Reaction Additional Past Anesthesia/Blood Transfusion Reaction / Comment(s): Family hx unknown, pt adopted. Past Psychological History: No Psychological Hx Reported Smoking Status: Never smoker Past Alcohol Use History: Occasional Past Drug Use History: None Reported - Past Family History Father Family Medical History: Unable to Obtain Additional Family Medical History / Comment(s): Patient was adopted. General Exam Limitations: no limitations General appearance: alert, in no apparent distress Head exam: Present: atraumatic, normocephalic Eye exam: Present: normal appearance, PERRL ENT exam: Present: normal exam Neck exam: Present: tenderness. Absent: full ROM (Decreased range of motion, tenderness and right paraspinal and right trapezius. No midline cervical tenderness.) Respiratory exam: Present: normal lung sounds bilaterally, respiratory distress Cardiovascular Exam: Present: regular rate, normal rhythm GI/Abdominal exam: Present: soft. Absent: distended, tenderness Extremities exam: Present: normal inspection, normal capillary refill Neurological exam: Present: alert, oriented X3, CN II-XII intact, other (No weakness in the right upper extremity. Normal crotch piece baster strength bilaterally.). Absent: motor sensory deficit Skin exam: Present: warm, dry, intact. Absent: cyanosis, diaphoretic Course Vital Signs 06/08/19 14:55 Temperature 98.1 F Pulse Rate 75 Respiratory 19 Rate Blood Pressure 116/78 O2 Sat by Pulse 98 Oximetry Medical Decision Making - Medical Decision Making 44-year-old female with right neck muscle spasm and protocols, tenderness over the paraspinal and trapezius muscles. She has stable vitals otherwise well. She has normal strength in bilateral upper extremities. She has good outpatient follow-up with both primary care physician and her neurologist. She will be given symptomatic treatment including muscle relaxers and anti-inflammatories. Patient not driving. will take medications with caution. Disposition Clinical Impression: Cervical strain, Torticollis, acute Disposition: HOME SELF-CARE Condition: Good Instructions (If sedation given, give patient instructions): Spasmodic Torticollis (ED) Prescriptions: Cyclobenzaprine [Flexeril] 5 mg PO TID PRN #15 tablet PRN Reason: Muscle Spasm Ibuprofen [Motrin] 600 mg PO Q8HR PRN #24 tab PRN Reason: Pain HYDROcodone/APAP 5-325MG [[place] 5-325] 1 tab PO Q6HR PRN #12 tab PRN Reason: Pain Is patient prescribed a controlled substance at d/c from ED?: No Referrals: Israel Presley MD [Primary Care Provider] - 1-2 days Socrates Tolbert MD [Medical Doctor] - 1-2 days Time of Disposition: 17:01
[2019-06-08 17:15] VITALS: BP 118/87; PULSE 72; RESP 18; TEMP 98
== END 2019-06-08 17:21 | disposition home or self-care (01) ==
LOC: EC 14:37
DX: S16.1XXA Strain of muscle, fascia and tendon at neck level, initial encounter (principal); M43.6 Torticollis; Z91.040 Latex allergy status; Z91.018 Allergy to other foods; Z91.09 Other allergy status, other than to drugs and biological substances; Z98.84 Bariatric surgery status
CPT/HCPCS: 99283; 96372 ×2; J3360; J1885

== ENCOUNTER → 2021-01-21 | Outpatient (CLI) | payer OTHER ==
--- NOTE | 2021-01-21 14:38 | US ---
EXAMINATION TYPE: US venous doppler duplex LE DATE OF EXAM: 01/21/2021 2:14 PM COMPARISON: NONE CLINICAL HISTORY: R22.40 Localized swelling, mass and lump.... SIDE PERFORMED: Bilateral TECHNIQUE: The lower extremity deep venous system is examined utilizing real time linear array sonog gabbie with graded compression, doppler sonography and color-flow sonography. VESSELS IMAGED: Common Femoral Vein Deep Femoral Vein Greater Saphenous Vein * Femoral Vein Popliteal Vein Small Saphenous Vein * Proximal Calf Veins (* superficial vessels) Right Leg: Negative for DVT Left Leg: Negative for DVT Scanning was performed over right lateral knee, patient's area of concern and bruising. There are mul tiple varicosities noted that are compressible. IMPRESSION: There is no sonographic evidence for deep vein thrombosis of the bilateral lower extremities. Varicos ities are noted in the region of abnormality in the lateral right knee.
== END | disposition home or self-care (01) ==
LOC: RADUSWWP 13:49
PROVIDERS: ATTEND Family Medicine
DX: I83.91 Asymptomatic varicose veins of right lower extremity (principal)
CPT/HCPCS: 93970

== ENCOUNTER 2021-02-02 20:11 | Emergency (ER) | payer OTHER ==
[2021-02-02 20:35] LABS: HCT 36.8 % (34.0-46.0); MCH 27.9 pg (25.0-35.0); MCHC 32.5 g/dL (31.0-37.0); MCV 85.8 fL (80.0-100.0); Mean Platelet Volume 8.9; Platelet Count 284 k/uL (150-450); RBC 4.29 m/uL (3.80-5.40); RDW 14.7 % (11.5-15.5); WBC 11.5 k/uL (3.8-10.6)
--- NOTE | 2021-02-02 20:35 | ED ---
General Adult HPI - General Chief complaint: Shortness of Breath Stated complaint: SOB Time Seen by Provider: 02/02/21 20:17 Source: patient Mode of arrival: ambulatory Limitations: no limitations - History of Present Illness Initial comments: Dictation was produced using [employer] dictation software. please excuse any grammatical, word or spelling errors. Chief Complaint: 45-year-old female presents to the emergency department for rig ht-sided chest pain and shortness of breath History of Present Illness: 45-year-old female she was seen in the emergency department last week. She had a right lower extremity venous Doppler scan that was negative for DVTs. Her last several days she's been complaining of pleuritic chest pain. States the pain is to her right chest and it's to her back. Patient states she short of breath. She denies any recent travel. No history of DVTs. Patient does not have any history of recent travel or cancer. She has been having a mild fever. No cough shortness of breath. No exposure to anybody sick or with coronavirus. The ROS documented in this emergency department record has been reviewed and confirmed by me. Those systems with pertinent positive or negative responses have been documented in the HPI. All other systems are other negative and/or noncontributory. PHYSICAL EXAM: General Impression: Alert and oriented x3, not in acute distress HEENT: Normocephalic atraumatic, extra-ocular movements intact, pupils equal and reactive to light bilaterally, mucous membranes moist. Cardiovascular: Heart regular rate and rhythm Chest: Able to complete full sentences, no retractions, no tachypnea, so to auscultation bilaterally Abdomen: abdomen soft, non-tender, non-distended, no organomegaly Musculoskeletal: Pulses present and equal in all extremities, no peripheral edema Motor: no focal deficits noted Neurological: CN II-XII grossly intact, no focal motor or sensory deficits noted Skin: Intact with no visualized rashes Psych: Normal affect and mood ED course: 45-year-old female presents to the emergency department for pleuritic chest pain shortness of breath. Vital signs upon arrival shows temperature of 90.9, heart rate of 109, rest of vital signs within acceptable limits. EKG interpretation: Ventricular rate 108, sinus tachycardia,. Interval 156, QRS 80, QTc 439. No VA prolongation, no QTC prolongation, no ST or T-wave changes noted. EKG compared to 10/12/2015 showing no changes. Overall, this EKG is unremarkable Laboratory evaluation obtained. CBC is unremarkable. Metabolic panel is within acceptable limits. Call is negative. Rest of for panel virus PCR is negative. CT angios not shown a pulmonary embolism however there is infiltrate to the right middle lobe and right lower lobe. Patient reevaluated at bedside. She is in stable medical condition. She is not hypoxic. Patient given dose of azithromycin. She is discharged with antibiotics and analgesics. There is concern that patient has pneumonia given her history of severe pneumonia in the past. I believe patient would benefit from a trial of antibiotics to see if her symptoms improve. - Related Data Home Medications Medication Instructions Recorded Confirmed Cyclobenzaprine [Flexeril] 5 mg PO HS 02/02/21 02/02/21 Multivitamins, Thera [Multivitamin 1 tab PO DAILY 02/02/21 02/02/21 (formulary)] Propranolol HCl [Inderal Xl] 80 mg PO DAILY 02/02/21 02/02/21 Previous Rx's Medication Instructions Recorded Azithromycin 250 mg PO DAILY 4 Days #4 tab 02/02/21 HYDROcodone/APAP 5-325MG [[place] 1 tab PO Q6HR PRN 3 Days #12 tab 02/02/21 5-325] Allergies Allergy/AdvReac Type Severity Reaction Status Date / Time cat dander Allergy Unknown Verified 02/02/21 20:53 feathers Allergy Unknown Verified 02/02/21 20:53 latex Allergy Rash/Hives Verified 02/02/21 20:53 strawberry Allergy Rash/Hives Verified 02/02/21 20:53 Review of Systems ROS Statement: Those systems with pertinent positive or pertinent negative responses have been documented in the HPI. ROS Other: All systems not noted in ROS Statement are negative. Past Medical History Past Medical History: Asthma, Blood Disorder, GERD/Reflux, Pneumonia Additional Past Medical History / Comment(s): Childhood asthma. Anemia, resolved for the last year. Pneumonia 2 yrs ago. History of Any Multi-Drug Resistant Organisms: None Reported Past Surgical History: Bariatric Surgery, Cholecystectomy, Hysterectomy Additional Past Surgical History / Comment(s): Lap band, oopherectomy. Past Anesthesia/Blood Transfusion Reactions: No Reported Reaction Additional Past Anesthesia/Blood Transfusion Reaction / Comment(s): Family hx unknown, pt adopted. Past Psychological History: No Psychological Hx Reported Smoking Status: Never smoker Past Alcohol Use History: Occasional Past Drug Use History: None Reported - Past Family History Father Family Medical History: Unable to Obtain Additional Family Medical History / Comment(s): Patient was adopted. General Exam Limitations: no limitations Course Vital Signs 02/02/21 02/02/21 20:13 20:19 Temperature 99.9 F H Pulse Rate 109 H Respiratory 16 16 Rate Blood Pressure 128/84 O2 Sat by Pulse 99 Oximetry Medical Decision Making - Lab Data Result diagrams: 02/02/21 20:24 02/02/21 20:24 Lab Results 02/02/21 02/02/21 02/02/21 Range/Units 20:24 20:24 20:24 WBC 11.5 H (3.8-10.6) k/uL RBC 4.29 (3.80-5.40) m/uL Hgb 12.0 (11.4-16.0) gm/dL Hct 36.8 (34.0-46.0) % MCV 85.8 (80.0-100.0) fL MCH 27.9 (25.0-35.0) pg MCHC 32.5 (31.0-37.0) g/dL RDW 14.7 (11.5-15.5) % Plt Count 284 (150-450) k/uL MPV 8.9 Neutrophils # DIRECTOR OF DISTRICT OFFICE Sodium 138 (137-145) mmol/L Potassium 3.7 (3.5-5.1) mmol/L Chloride 104 (98-107) mmol/L Carbon Dioxide 24 (22-30) mmol/L Anion Gap 10 mmol/L BUN 19 H (7-17) mg/dL Creatinine 0.82 (0.52-1.04) mg/dL Est GFR (CKD-EPI)AfAm >90 (>60 ml/min/1.73 sqM) Est GFR (CKD-EPI)NonAf 88 (>60 ml/min/1.73 sqM) Glucose 123 H (74-99) mg/dL Calcium 8.5 (8.4-10.2) mg/dL Total Bilirubin 0.7 (0.2-1.3) mg/dL AST 18 (14-36) U/L ALT 10 (4-34) U/L Alkaline Phosphatase 67 (38-126) U/L Total Protein 6.8 (6.3-8.2) g/dL Albumin 3.9 (3.5-5.0) g/dL Lipase 46 (23-300) U/L Influenza Type A (PCR) Not Detected (Not Detectd) Influenza Type B (PCR) Not Detected (Not Detectd) RSV (PCR) Not Detected (Not Detectd) SARS-CoV-2 (PCR) Not Detected (Not Detectd) Disposition Clinical Impression: Pleurisy Disposition: HOME SELF-CARE Condition: Fair Instructions (If sedation given, give patient instructions): Pleurisy (ED) Prescriptions: Azithromycin 250 mg PO DAILY 4 Days #4 tab HYDROcodone/APAP 5-325MG [[place] 5-325] 1 tab PO Q6HR PRN 3 Days #12 tab PRN Reason: Severe Pain Is patient prescribed a controlled substance at d/c from ED?: Yes If prescribed controlled substance>3 days was MAPS reviewed?: Prescribed <3 Days Referrals: Israel Presley MD [Primary Care Provider] - 1-2 days
[2021-02-02 20:47] LABS: ALT 10 U/L (4-34); AST 18 U/L (14-36); African American GFR (CKD) >90 (>60 ml/min/1.73 sqM); Albumin 3.9 g/dL (3.5-5.0); Alkaline Phosphatase 67 U/L (38-126); Anion Gap 10 mmol/L; Blood Urea Nitrogen 19 mg/dL (7-17); Calcium 8.5 mg/dL (8.4-10.2); Carbon Dioxide 24 mmol/L (22-30); Chloride 104 mmol/L (98-107); Glucose 123 mg/dL (74-99); Lipase 46 U/L (23-300); Non-African American GFR(CKD) 88 (>60 ml/min/1.73 sqM); Potassium 3.7 mmol/L (3.5-5.1); Sodium 138 mmol/L (137-145); Total Bilirubin 0.7 mg/dL (0.2-1.3); Total Protein 6.8 g/dL (6.3-8.2)
--- NOTE | 2021-02-02 21:06 | XR ---
EXAMINATION TYPE: XR chest 1V portable DATE OF EXAM: 02/02/2021 COMPARISON: 10/23/2015 HISTORY: Right upper quadrant pain. Short of breath. TECHNIQUE: Rashaun view FINDINGS: Heart and mediastinum are normal. Lungs are clear of infiltrate. There is no pleural effusi on. There are chest leads. Bony thorax appears intact. IMPRESSION: Normal chest. There is clearing of the left side pneumonia and the bilateral pleural effu sions compared to old exam.
--- NOTE | 2021-02-02 21:49 | CT ---
EXAMINATION TYPE: CT angio chest DATE OF EXAM: 02/02/2021 COMPARISON: 10/12/2015 HISTORY: SOB, postive d-dimer, hx pneumonia. CT DLP: 420.6 mGycm Automated exposure control for dose reduction was used. CONTRAST: Performed with IV Contrast, patient injected with 100 mL of Isovue 370. There are 3-D post processed images. There is some patchy airspace infiltrate and atelectasis in the anterior right middle lobe. There is small pericardial effusion. There is large fluid-filled thoracic esophagus. There is gastric sleeve. The visualized liver and spleen appear intact. Heart size is fairly normal. There is noncalcified low-density 7 mm nodule in the right upper lobe. S ome mild reticular infiltrate in the periphery of the right lower lobe. There is no pleural effusion. Thoracic aorta is intact. There is no mediastinal adenopathy. There are no hilar masses. There is nor mal contrast opacification of the pulmonary arteries. There are no filling defects. The bony thorax is intact. There is no thoracic compression fracture. Sternum is intact. IMPRESSION: No evidence of pulmonary embolism. There is some right middle lobe infiltrate and atelectasis. There is some patchy interstitial infiltr ate in the right lower lobe. There is posterior lateral right upper lobe nodule. There is clearing of the extensive pulmonary airspace infiltrate in the left lung compared to old exam. Pulmonary abnorma lities are likely inflammatory. Right-sided pulmonary abnormalities are mostly new compared to old ex am. There is chronically dilated thoracic esophagus with fluid consistent with obstruction due to the gas tric sleeve that is not significantly different than old exam.
[2021-02-02] MEDS ORDERED: AZITHROMYCIN 500 MG TAB PO STA (22:13)
[2021-02-02] MEDS ORDERED: ACET/COD 300 MG/30 MG STARTER PACK 6 TAB BTL PO STA (22:13)
[2021-02-02 22:15] LABS: Lymphocytes # (M) 1.27 k/uL (1.0-4.8); Monocytes # (M) 0.58 k/uL (0-1.0); Neutrophils # (M) 9.66 k/uL (1.3-7.7); Neutrophils % (M) 84 %; Nucleated Red Blood Cells 0 /100 WBC (0-0); Total Cells Counted 100
[2021-02-02] MEDS ORDERED: AZITHROMYCIN 500 MG in SODIUM CHLORIDE 0.9% 250 ML IVPB ONE (22:30)
[2021-02-02 22:47] VITALS: TEMP 98.7
[2021-02-02 23:52] VITALS: BP 120/82; PULSE 94; RESP 18
== END 2021-02-03 | disposition home or self-care (01) ==
LOC: EC 20:11
DX: R09.1 Pleurisy (principal); R06.02 Shortness of breath; R07.89 Other chest pain; J45.909 Unspecified asthma, uncomplicated; Z91.040 Latex allergy status; Z20.822 Contact with and (suspected) exposure to COVID-19; Z91.018 Allergy to other foods; Z91.09 Other allergy status, other than to drugs and biological substances
CPT/HCPCS: 36415; 93005; 80053; 83690; 85025; 87636; 71045; 71275; 99285; 96365; J0456; Q9967

== ENCOUNTER → 2021-07-16 | Outpatient (CLI) | payer OTHER ==
[~2021-07-16] MED LIST changes: +BAMLANIVIMAB (EUA) 700 MG, ETESEVIMAB (EUA) 1,400 MG in SODIUM CHLORIDE 0.9% 100 ML IVPB ONE; -DEXAMETHASONE SOD PHOSPHATE 10 MG/ML 1 ML VIAL IV ONE; -HYDROmorphone 0.5 MG/0.5 ML SYRINGE IVP PRN; -MORPHINE SULFATE 4 MG/ML SYRINGE IV PRN; -ONDANSETRON 4 MG/2 ML VIAL IVP ONE; -ONDANSETRON 4 MG/2 ML VIAL IVP PRN; +SODIUM CHLORIDE 0.9% 50 ML IVPB ONE; +SODIUM CHLORIDE 0.9% 500 ML 500 ML in EMPTY BAG 1 BAG IV PRN; -ceFAZolin IN SWFI 2 GM/20 ML SYRINGE IVP ONE
[2021-07-16 11:43] VITALS: RESP 16
[2021-07-16 11:57] VITALS: BP 123/85; PULSE 78; TEMP 97.7
== END | disposition home or self-care (01) ==
LOC: PROCWHC3 11:00
PROVIDERS: ATTEND Family Medicine
DX: U07.1 COVID-19 (principal)
CPT/HCPCS: 96360; J3490; M0245

== ENCOUNTER → 2021-08-06 | Outpatient (CLI) | payer OTHER ==
--- NOTE | 2021-08-07 09:25 | MM ---
Reason for exam: screening (asymptomatic). Last mammogram was performed 5 years and 5 months ago. Physical Findings: A clinical breast exam by your physician is recommended on an annual basis and results should be correlated with mammographic findings. MG 3D Screening Mammo W/Cad Bilateral CC and MLO view(s) were taken. Prior study comparison: March 15, 2016, left breast MG work up mamm w CAD LT. January 30, 2016, bilateral MG screening mammo w CAD. There are scattered fibroglandular densities. There is no discrete abnormality. No significant changes when compared with prior studies. ASSESSMENT: Negative, BI-RAD 1 RECOMMENDATION: Routine screening mammogram of both breasts in 1 year.
== END | disposition home or self-care (01) ==
LOC: RADMAMWWP 15:14
PROVIDERS: ATTEND Family Medicine
DX: Z12.31 Encounter for screening mammogram for malignant neoplasm of breast (principal)
CPT/HCPCS: 77063; 77067

== ENCOUNTER → 2021-12-07 | Outpatient (CLI) | payer OTHER ==
--- NOTE | 2021-12-07 16:48 | US ---
EXAMINATION TYPE: US venous doppler duplex LE RT DATE OF EXAM: 12/07/2021 4:33 PM COMPARISON: US CLINICAL HISTORY: M79.604 PAIN IN RT LEG. Pain and lump right lateral calf SIDE PERFORMED: Right TECHNIQUE: The lower extremity deep venous system is examined utilizing real time linear array sonog gabbie with graded compression, doppler sonography and color-flow sonography. VESSELS IMAGED: Common Femoral Vein Deep Femoral Vein Greater Saphenous Vein * Femoral Vein Popliteal Vein Small Saphenous Vein * Proximal Calf Veins (* superficial vessels) Right Leg: Negative for DVT, Complex area right lateral calf in area of pt's palpable= 5.2 x 2.6 x 4 .8 cm IMPRESSION: No evidence of deep vein thrombosis in the right leg. There is complex fluid collection measuring 2 cm in the lateral calf that could be a hematoma.
--- NOTE | 2021-12-08 06:57 | XR ---
EXAMINATION TYPE: XR chest 2V DATE OF EXAM: 12/07/2021 COMPARISON: 02/02/2021 HISTORY: 46-year-old female J0 6.9, acute upper respiratory infection TECHNIQUE: Frontal and lateral views FINDINGS: Heart normal size. Aorta and pulmonary vasculature are within normal limits. Mild patchy density at t he left midlung. No other consolidation or pleural effusion. IMPRESSION: Mild patchy density at the left mid lung could represent a small focus of atelectasis or early infilt rate. Clinically correlate.
== END | disposition home or self-care (01) ==
LOC: RADUSWWP 16:15
PROVIDERS: ATTEND Family Medicine
DX: M79.604 Pain in right leg (principal); J06.9 Acute upper respiratory infection, unspecified
CPT/HCPCS: 71046

== ENCOUNTER 2022-04-15 10:04 | Emergency (ER) | payer OTHER ==
[2022-04-15 10:27] VITALS: TEMP 98.8
[2022-04-15 12:13] LABS: HCT 37.6 % (34.0-46.0); HGB 12.2 gm/dL (11.4-16.0); Hypochromasia Moderate; MCH 26.3 pg (25.0-35.0); MCHC 32.5 g/dL (31.0-37.0); MCV 81.2 fL (80.0-100.0); Mean Platelet Volume 9.4; Platelet Count 277 k/uL (150-450); RBC 4.64 m/uL (3.80-5.40); RDW 15.3 % (11.5-15.5); WBC 14.8 k/uL (3.8-10.6)
--- NOTE | 2022-04-15 12:34 | ED ---
General Adult HPI - General Chief complaint: Recheck/Abnormal Lab/Rx Stated complaint: Ligh headed & dizziness Time Seen by Provider: 04/15/22 12:24 Source: patient Mode of arrival: ambulatory Limitations: no limitations - History of Present Illness Initial comments: Dictation was produced using [employer] dictation software. please excuse any grammatical, word or spelling errors. Chief Complaint: 46-year-old female presents to the emergency department for concerns of anemia History of Present Illness: Is a 46-year-old female she reports past medical history of anemia. Patient states she will this morning feeling nauseated. She hasn't been feeling well. She called her primary care doctor. She spoke with the patient coordinator front desk and was redirected to the emergency department. Patient has a history of anemia. She has had iron infusions in the past. Patient states that her hematocrit was low last month. Patient denies any other symptoms. She denies sensation of the room spinning. No vomiting. No diarrhea. No fever or constitutional symptoms. She is an Antwan without any complications. The ROS documented in this emergency department record has been reviewed and confirmed by me. Those systems with pertinent positive or negative responses have been documented in the HPI. All other systems are other negative and/or no ncontributory. PHYSICAL EXAM: General Impression: Alert and oriented x3, not in acute distress HEENT: Normocephalic atraumatic, extra-ocular movements intact, pupils equal and reactive to light bilaterally, mucous membranes moist. Cardiovascular: Heart regular rate and rhythm Chest: Able to complete full sentences, no retractions, no tachypnea Abdomen: abdomen soft, non-tender, non-distended, no organomegaly Musculoskeletal: Pulses present and equal in all extremities, no peripheral edema Motor: no focal deficits noted Neurological: CN II-XII grossly intact, no focal motor or sensory deficits noted Skin: Intact with no visualized rashes Psych: Normal affect and mood ED course: 46-year-old well-appearing female presents emergency department for concerns of anemia. She has history of iron deficiency anemia and has undergone iron infusions in the past. She woke this morning feeling nauseated and mildly weak. Physical examination completely benign. She is well-appearing smiling in no acute distress at the bedside. She denies any high risk features. no History of black or bloody stools. No abdominal pain. No fever or constitutional symptoms. Vital signs upon arrival are within acceptable limits. Laboratory evaluation obtained. Mild leukocytosis of 14.8 of unclear signifi cance. Hemoglobin is normal to 0.2 with normal hematocrit. Metabolic panel is unremarkable. It was recommended patient to be tested broadly for what might be causing her symptoms refuse preferred to be discharge. Reevaluated at bedside at 2:00 and found with stable medical condition. Patient notified of her blood results. Patient is in no acute distress. Patient has no high-risk features. Patient be discharged. Advised close follow-up with primary care doctor. - Related Data Home Medications Medication Instructions Recorded Confirmed Cyclobenzaprine [Flexeril] 5 mg PO HS 02/02/21 07/16/21 Multivitamins, Thera [Multivitamin 1 tab PO DAILY 02/02/21 07/16/21 (formulary)] Allergies Allergy/AdvReac Type Severity Reaction Status Date / Time cat dander Allergy Unknown Verified 04/15/22 10:27 feathers Allergy Unknown Verified 04/15/22 10:27 latex Allergy Rash/Hives Verified 04/15/22 10:27 strawberry Allergy Rash/Hives Verified 04/15/22 10:27 Review of Systems ROS Statement: Those systems with pertinent positive or pertinent negative responses have been documented in the HPI. ROS Other: All systems not noted in ROS Statement are negative. Past Medical History Past Medical History: Asthma, Blood Disorder, GERD/Reflux, Pneumonia Additional Past Medical History / Comment(s): Childhood asthma. Anemia, resolved for the last year. Pneumonia 2 yrs ago. History of Any Multi-Drug Resistant Organisms: None Reported Past Surgical History: Bariatric Surgery, Cholecystectomy, Hysterectomy Additional Past Surgical History / Comment(s): Lap band, oopherectomy. Past Anesthesia/Blood Transfusion Reactions: No Reported Reaction Additional Past Anesthesia/Blood Transfusion Reaction / Comment(s): Family hx unknown, pt adopted. Past Psychological History: No Psychological Hx Reported Smoking Status: Never smoker Past Alcohol Use History: Occasional Past Drug Use History: None Reported - Past Family History Father Family Medical History: Unable to Obtain Additional Family Medical History / Comment(s): Patient was adopted. General Exam Limitations: no limitations Course Vital Signs 04/15/22 10:25 Temperature 98.8 F Pulse Rate 77 Respiratory 20 Rate O2 Sat by Pulse 96 Oximetry Medical Decision Making - Lab Data Result diagrams: 04/15/22 11:58 04/15/22 11:58 Lab Results 04/15/22 04/15/22 Range/Units 11:58 11:58 WBC 14.8 H (3.8-10.6) k/uL RBC 4.64 (3.80-5.40) m/uL Hgb 12.2 (11.4-16.0) gm/dL Hct 37.6 (34.0-46.0) % MCV 81.2 (80.0-100.0) fL MCH 26.3 (25.0-35.0) pg MCHC 32.5 (31.0-37.0) g/dL RDW 15.3 (11.5-15.5) % Plt Count 277 (150-450) k/uL MPV 9.4 Neutrophils % (Manual) 79 % Lymphocytes % (Manual) 15 % Monocytes % (Manual) 5 % Basophils % (Manual) 1 % Neutrophils # (Manual) 11.69 H (1.3-7.7) k/uL Lymphocytes # (Manual) 2.22 (1.0-4.8) k/uL Monocytes # (Manual) 0.74 (0-1.0) k/uL Basophils # (Manual) 0.15 (0-0.2) k/uL Nucleated RBCs 0 (0-0) /100 WBC Manual Slide Review Performed Hypochromasia Moderate Sodium 140 (137-145) mmol/L Potassium 4.0 (3.5-5.1) mmol/L Chloride 101 (98-107) mmol/L Carbon Dioxide 27 (22-30) mmol/L Anion Gap 12 mmol/L BUN 16 (7-17) mg/dL Creatinine 0.87 (0.52-1.04) mg/dL Est GFR (CKD-EPI)AfAm >90 (>60 ml/min/1.73 sqM) Est GFR (CKD-EPI)NonAf 82 (>60 ml/min/1.73 sqM) Glucose 97 (74-99) mg/dL Calcium 9.7 (8.4-10.2) mg/dL Total Bilirubin 1.9 H (0.2-1.3) mg/dL AST 20 (14-36) U/L ALT 12 (4-34) U/L Alkaline Phosphatase 69 (38-126) U/L Total Protein 7.3 (6.3-8.2) g/dL Albumin 4.5 (3.5-5.0) g/dL Disposition Clinical Impression: Malaise Disposition: HOME SELF-CARE Condition: Good Instructions (If sedation given, give patient instructions): Acute Nausea and Vomiting (ED) Is patient prescribed a controlled substance at d/c from ED?: No Referrals: Israel Presley MD [Primary Care Provider] - 1-2 days Time of Disposition: 13:55
[2022-04-15 12:37] LABS: ALT 12 U/L (4-34); AST 20 U/L (14-36); African American GFR (CKD) >90 (>60 ml/min/1.73 sqM); Albumin 4.5 g/dL (3.5-5.0); Alkaline Phosphatase 69 U/L (38-126); Anion Gap 12 mmol/L; Blood Urea Nitrogen 16 mg/dL (7-17); Calcium 9.7 mg/dL (8.4-10.2); Carbon Dioxide 27 mmol/L (22-30); Chloride 101 mmol/L (98-107); Glucose 97 mg/dL (74-99); Non-African American GFR(CKD) 82 (>60 ml/min/1.73 sqM); Sodium 140 mmol/L (137-145); Total Bilirubin 1.9 mg/dL (0.2-1.3); Total Protein 7.3 g/dL (6.3-8.2)
[2022-04-15 12:54] LABS: Basophils # (M) 0.15 k/uL (0-0.2); Lymphocytes # (M) 2.22 k/uL (1.0-4.8); Monocytes # (M) 0.74 k/uL (0-1.0); Neutrophils # (M) 11.69 k/uL (1.3-7.7); Neutrophils % (M) 79 %; Nucleated Red Blood Cells 0 /100 WBC (0-0); Total Cells Counted 100
[2022-04-15 14:20] VITALS: BP 132/84; PULSE 74; RESP 18
[2022-04-15 21:38] LABS: Iron 125 ug/dL (50-170)
== END 2022-04-15 14:20 | disposition home or self-care (01) ==
LOC: EC 10:04
DX: R53.81 Other malaise (principal); J45.909 Unspecified asthma, uncomplicated; K21.9 Gastro-esophageal reflux disease without esophagitis; Z91.040 Latex allergy status; Z91.018 Allergy to other foods
CPT/HCPCS: 36415; 80053; 83540; 85025; 93005; 99284

== ENCOUNTER 2023-04-16 13:20 | Emergency (ER) | payer OTHER ==
[2023-04-16] MEDS: ONDANSETRON ODT 4 MG TAB PO STA (14:12)
[2023-04-16] MEDS: ACETAMINOPHEN TAB 500 MG TAB PO STA (14:12)
[2023-04-16] MEDS: IBUPROFEN 600 MG TAB PO STA (14:24)
[2023-04-16] MEDS: SODIUM CHLORIDE 0.9% 1,000 ML IV STA (15:25)
--- NOTE | 2023-04-16 15:25 | ED ---
Headache HPI - General Chief Complaint: Headache Stated Complaint: headach, dizzy,body aches Time Seen by Provider: 04/16/23 14:09 Mode of arrival: ambulatory Limitations: no limitations - History of Present Illness Initial Comments: 47-year-old female presenting with chief complaint of headache. Patient states that she started not feeling well yesterday. Today she has been experiencing headache, body aches, congestion, and cough. She is febrile upon arrival. Admits to nausea and vomiting, states that she has been unable to take anything for her headache secondary to nausea and vomiting. No chest pain, difficulty breathing, abdominal pain. - Related Data Home Medications Medication Instructions Recorded Confirmed Cyclobenzaprine [Flexeril] 5 mg PO HS 02/02/21 07/16/21 Multivitamins, Thera [Multivitamin 1 tab PO DAILY 02/02/21 07/16/21 (formulary)] Previous Rx's Medication Instructions Recorded Azithromycin [Zithromax Z Pack] 1 tab PO DIRECTED #6 tab 04/16/23 Allergies Allergy/AdvReac Type Severity Reaction Status Date / Time cat dander Allergy Unknown Verified 04/16/23 13:30 feathers Allergy Unknown Verified 04/16/23 13:30 latex Allergy Rash/Hives Verified 04/16/23 13:30 strawberry Allergy Rash/Hives Verified 04/16/23 13:30 Review of Systems ROS Statement: Those systems with pertinent positive or pertinent negative responses have been documented in the HPI. ROS Other: All systems not noted in ROS Statement are negative. Past Medical History Past Medical History: Asthma, Blood Disorder, GERD/Reflux, Pneumonia Additional Past Medical History / Comment(s): Childhood asthma. Anemia, resolved for the last year. Pneumonia 2 yrs ago. History of Any Multi-Drug Resistant Organisms: None Reported Past Surgical History: Bariatric Surgery, Cholecystectomy, Hysterectomy Additional Past Surgical History / Comment(s): Lap band, oopherectomy. Past Anesthesia/Blood Transfusion Reactions: No Reported Reaction Additional Past Anesthesia/Blood Transfusion Reaction / Comment(s): Family hx unknown, pt adopted. Past Psychological History: No Psychological Hx Reported Smoking Status: Never smoker Past Alcohol Use History: Occasional Past Drug Use History: None Reported - Past Family History Father Family Medical History: Unable to Obtain Additional Family Medical History / Comment(s): Patient was adopted. General Exam Limitations: no limitations General appearance: alert, in no apparent distress Head exam: Present: atraumatic, normocephalic, normal inspection Eye exam: Present: normal appearance, EOMI ENT exam: Present: normal oropharynx, mucous membranes moist Neck exam: Present: normal inspection, full ROM Respiratory exam: Present: normal lung sounds bilaterally. Absent: respiratory distress, wheezes, rales, rhonchi, stridor Cardiovascular Exam: Present: regular rate, normal rhythm, normal heart sounds. Absent: systolic murmur, diastolic murmur, rubs, gallop, clicks Neurological exam: Present: alert, oriented X3 Psychiatric exam: Present: normal affect, normal mood Skin exam: Present: warm, dry, intact, normal color. Absent: rash Course Vital Signs 04/16/23 04/16/23 13:28 16:44 Temperature 100.3 F H 99.2 F Pulse Rate 115 H Respiratory 20 Rate O2 Sat by Pulse 96 Oximetry Medical Decision Making - Medical Decision Making Was pt. sent in by a medical professional or institution (, PA, POLICE AIDE, urgent care, hospital, or alf...) When possible be specific @ -No Did you speak to anyone other than the patient for history (EMS, parent, family, police, friend...)? What history was obtained from this source @ -No Did you review nursing and triage notes (agree or disagree)? Why? @ -I reviewed and agree with nursing and triage notes Were old charts reviewed (outside hosp., previous admission, EMS record, old EKG, old radiological studies, urgent care reports/EKG's, alf records)? Report findings @ -No old charts were reviewed Differential Diagnosis (chest pain, altered mental status, abdominal pain women, abdominal pain men, vaginal bleeding, weakness, fever, dyspnea, syncope, headache, dizziness, GI bleed, back pain, seizure, CVA, palpatations, mental health, musculoskeletal)? @ -Differential includes Covid, influenza, RSV, bronchitis, pneumonia, this is not an all inclusive list EKG interpreted by me (3pts min.). @ -As above X-rays interpreted by me (1pt min.). @ -Chest x-ray shows left lower lung airspace disease which may represent developing infectious/inflammatory process CT interpreted by me (1pt min.). @ -None done U/S interpreted by me (1pt. min.). @ -None done What testing was considered but not performed or refused? (CT, X-rays, U/S, labs)? Why? @ -None What meds were considered but not given or refused? Why? @ -None Did you discuss the management of the patient with other professionals (professionals i.e. , PA, POLICE AIDE, lab, RT, psych nurse, social insurance administrator, take away attendant, teacher, certification officer, case operator)? Give summary @ -No Was smoking cessation discussed for >3mins.? @ -No Was critical care preformed (if so, how long)? @ -No Were there social determinants of health that impacted care today? How? (Homelessness, low income, unemployed, alcoholism, drug addiction, transportation, low edu. Level, literacy, decrease access to med. care, snf, rehab)? @ -No Was there de-escalation of care discussed even if they declined (Discuss DNR or withdrawal of care, Hospice)? DNR status @ -No What co-morbidities impacted this encounter? (DM, HTN, Smoking, COPD, CAD, Cancer, CVA, ARF, Chemo, Hep., AIDS, mental health diagnosis, sleep apnea, morbid obesity)? @ -None Was patient admitted / discharged? Hospital course, mention meds given and route, prescriptions, significant lab abnormalities, going to OR and other pertinent info. @ -47-year-old female presenting with chief complaint of fever, headache, cough, congestion, and body aches. Physical exam is conducted. She is negative for influenza, RSV, and Covid. Chest x-ray is concerning for possible developing pneumonia. Patient is given migraine cocktail and antipyretics, reassessment she reports improvement in her symptoms. She is started on azithromycin. Follow-up with PCP. Report back to ER with any new or worsening symptoms. Discussed return parameters and answered all questions. Patient conveyed verbal understanding and agreed to the plan. I discussed this case in detail with my attending Dr. Del Angel Undiagnosed new problem with uncertain prognosis? @ -No Drug Therapy requiring intensive monitoring for toxicity (Heparin, Nitro, Insulin, Cardizem)? @ -No Were any procedures done? @ -No Diagnosis/symptom? @ -Fever, headache, pneumonia Acute, or Chronic, or Acute on Chronic? @ -Acute Uncomplicated (without systemic symptoms) or Complicated (systemic symptoms)? @ -Uncomplicated Side effects of treatment? @ -No Exacerbation, Progression, or Severe Exacerbation? @ -No Poses a threat to life or bodily function? How? (Chest pain, USA, PA, pneumonia, PE, COPD, DKA, ARF, appy, cholecystitis, CVA, Diverticulitis, Homicidal, Suicidal, threat to staff... and all critical care pts) @ -Low likelihood - Lab Data Lab Results 04/16/23 Range/Units 13:33 Influenza Type A (PCR) Not Detected (Not Detectd) Influenza Type B (PCR) Not Detected (Not Detectd) RSV (PCR) Not Detected (Not Detectd) SARS-CoV-2 (PCR) Not Detected (Not Detectd) Disposition Clinical Impression: Fever, Pneumonia, Headache Disposition: HOME SELF-CARE Condition: Good Instructions (If sedation given, give patient instructions): Fever in Adults (ED), Acute Headache (ED), Community Acquired Pneumonia (ED) Additional Instructions: Follow-up with PCP. Report back to ER if any new or worsening symptoms. Take medication as prescribed. Alternate Motrin and Tylenol for fever control. Prescriptions: Azithromycin [Zithromax Z Pack] 1 tab PO DIRECTED #6 tab Is patient prescribed a controlled substance at d/c from ED?: No Referrals: Israel Presley MD [Primary Care Provider] - 1-2 days Time of Disposition: 16:58
[2023-04-16] MEDS: diphenhydrAMINE 50 MG/ML 1 ML VIAL IVP STA (15:53)
[2023-04-16] MEDS: DEXAMETHASONE SOD PHOSPHATE 10 MG/ML 1 ML VIAL IVP STA (15:56)
[2023-04-16] MEDS: METOCLOPRAMIDE 5 MG/ML 2 ML VIAL IVP STA (15:58)
--- NOTE | 2023-04-16 16:49 | XR ---
EXAMINATION TYPE: XR chest 2V DATE OF EXAM: 04/16/2023 4:40 PM CLINICAL INDICATION:Female, 47 years old with history of cough. COMPARISON: Chest radiograph 12/07/2021. TECHNIQUE: XR chest 2V Frontal and lateral views of the chest. FINDINGS: Lungs/Pleura: Hazy left lower lung airspace opacities are identified. No evidence of pleural effusion or pneumothorax. Pulmonary vascularity: Unremarkable. Heart/mediastinum: Cardiomediastinal silhouette is unremarkable. Musculoskeletal: No acute osseous pathology. IMPRESSION: Left lower lung airspace disease which may represent developing infectious/inflammatory process.
[2023-04-16 17:41] VITALS: BP 117/69; PULSE 78; RESP 18; TEMP 98.9
== END 2023-04-16 17:33 | disposition home or self-care (01) ==
LOC: EC 13:20
DX: J18.9 Pneumonia, unspecified organism (principal); J45.909 Unspecified asthma, uncomplicated; Z91.040 Latex allergy status; Z91.018 Allergy to other foods; Z88.8 Allergy status to other drugs, medicaments and biological substances; Z90.49 Acquired absence of other specified parts of digestive tract; Z20.822 Contact with and (suspected) exposure to COVID-19
CPT/HCPCS: 99284; 96374; 96375 ×2; 96361; 87636; 71046; J1200; J1100; J2765

== ENCOUNTER → 2023-07-13 | Outpatient (CLI) | payer OTHER ==
--- NOTE | 2023-07-13 18:40 | XR ---
EXAMINATION TYPE: XR chest 2V DATE OF EXAM: 07/13/2023 COMPARISON: 04/16/2023 INDICATION: Short of breath TECHNIQUE: Frontal and lateral views of the chest are obtained. FINDINGS: The heart size is normal. The pulmonary vasculature is normal. Left lower lobe infiltrate is present. Follow-up to clearing is recommended.. IMPRESSION: 1. Left lower lobe infiltrate. Correlate for pneumonia. Follow-up to clearing is recommended.
== END | disposition home or self-care (01) ==
LOC: RADXRMAIN 10:06
PROVIDERS: ATTEND Family Medicine
DX: J18.9 Pneumonia, unspecified organism (principal); R91.8 Other nonspecific abnormal finding of lung field
CPT/HCPCS: 71046

== ENCOUNTER 2023-07-15 09:17 | Inpatient (IN) | payer OTHER ==
[2023-07-15] MEDS ORDERED: PNEUMONIA PROTOCOL UTILIZED 1 EACH MISC PO PRN (09:41)
[2023-07-15] MEDS ORDERED: AZITHROMYCIN 500 MG in SODIUM CHLORIDE 0.9% 250 ML IVPB STA (09:41)
[2023-07-15] MEDS ORDERED: KETOROLAC 15 MG/ML 1 ML VIAL IVP STA (09:46)
--- NOTE | 2023-07-15 09:55 | ED ---
SOB HPI - General Chief Complaint: Shortness of Breath Stated Complaint: pneumonia Time Seen by Provider: 07/15/23 09:30 Source: patient, RN notes reviewed Mode of arrival: ambulatory Limitations: no limitations - History of Present Illness Initial Comments: This is a 48-year-old female who presents to the emergency department for shortness of breath. States that she was diagnosed with pneumonia 4 weeks ago and is not getting any better. She has been on 3 rounds of antibiotics and steroids with no relief in symptoms. She is also unable to control the coughing. Reports associated body aches. Denies any chest pain. She has started to notice blood in her sputum. Her PCP advised that if she did not get any better on this round of antibiotics, to go to the emergency department for likely admission. Reports a history of asthma. She has been using her albuterol inhaler as well as DuoNeb breathing treatments 4 times a day, but is not sure if it is offering her any benefit. MD Complaint: shortness of breath, cough - Related Data Home Medications Medication Instructions Recorded Confirmed Albuterol Sulfate [Albuterol 2 puff PO RT-Q6H PRN 07/15/23 07/15/23 Sulfate Hfa] Doxycycline [Vibramycin] 100 mg PO BID 07/15/23 07/15/23 Ipratropium-Albuterol Nebulize 3 ml INHALATION RT-TID 07/15/23 07/15/23 [Duoneb 0.5 mg-3 mg/3 ml Soln] predniSONE See Taper PO DAILY 07/15/23 07/15/23 Allergies Allergy/AdvReac Type Severity Reaction Status Date / Time cat dander Allergy Unknown Verified 07/15/23 10:35 feathers Allergy Unknown Verified 07/15/23 10:35 latex Allergy Rash/Hives Verified 07/15/23 10:35 strawberry Allergy Rash/Hives Verified 07/15/23 10:35 Review of Systems ROS Statement: Those systems with pertinent positive or pertinent negative responses have been documented in the HPI. ROS Other: All systems not noted in ROS Statement are negative. Past Medical History Past Medical History: Asthma, Blood Disorder, GERD/Reflux, Pneumonia Additional Past Medical History / Comment(s): Childhood asthma. Anemia, resolved for the last year. Pneumonia 2 yrs ago. History of Any Multi-Drug Resistant Organisms: None Reported Past Surgical History: Bariatric Surgery, Cholecystectomy, Hysterectomy Additional Past Surgical History / Comment(s): Lap band, oopherectomy. Past Anesthesia/Blood Transfusion Reactions: No Reported Reaction Additional Past Anesthesia/Blood Transfusion Reaction / Comment(s): Family hx unknown, pt adopted. Past Psychological History: No Psychological Hx Reported Smoking Status: Never smoker Past Alcohol Use History: Occasional Past Drug Use History: None Reported - Past Family History Father Family Medical History: Unable to Obtain Additional Family Medical History / Comment(s): Patient was adopted. General Exam Limitations: no limitations General appearance: alert, in no apparent distress Head exam: Present: atraumatic, normocephalic, normal inspection Respiratory exam: Present: decreased breath sounds, prolonged expiratory Cardiovascular Exam: Present: regular rate, normal rhythm, normal heart sounds. Absent: systolic murmur, diastolic murmur, rubs, gallop, clicks Neurological exam: Present: alert, oriented X3, CN II-XII intact Psychiatric exam: Present: normal affect, normal mood Skin exam: Present: warm, dry, intact, normal color. Absent: rash Course Vital Signs 07/15/23 07/15/23 07/15/23 09:19 12:31 15:45 Temperature 98.2 F Pulse Rate 100 70 72 Respiratory 26 H 14 16 Rate Blood Pressure 132/73 119/70 123/83 O2 Sat by Pulse 93 L 96 99 Oximetry 07/15/23 16:31 Temperature Pulse Rate 95 Respiratory 16 Rate Blood Pressure 140/90 O2 Sat by Pulse 95 Oximetry Medical Decision Making - Medical Decision Making This is a 48-year-old female who presents to the emergency department for shortness of breath. Was pt. sent in by a medical professional or institution? @ -Her PCP Did you speak to anyone other than the patient for history? @ -No Did you review nursing and triage notes? @ -Yes, and I agree, it is accurate with regards to the patient's symptoms. Were old charts reviewed? @ -Chest x-ray from 07/13/23 demonstrating a left lower lobe infiltrate. Differential Diagnosis? @ -Differential Dyspnea: Coronary syndrome, arrhythmia, tamponade, asthma, COPD, pulmonary embolism, pneumonia, pneumothorax, pulmonary effusion, anaphylaxis, diabetic ketoacidosis, flailed chest, pulmonary contusion, diaphragmatic rupture, anemia, neuromuscular, this is not meant to be an all-inclusive list. EKG interpreted by me (3pts min.)? @ -EKG interpreted by me demonstrating the following: Sinus rhythm. Ventricular rate 85 beats per minute, NE interval 158 ms, QRS duration 86 ms, QTC 399 ms. X-rays interpreted by me (1pt min.)? @ -Chest x-ray obtained. My interpretation identifies a left lower lobe conso lidation. CT interpreted by me (1pt min.)? @ -CTA of the chest obtained. My interpretation identifies no evidence of a pulmonary embolus. U/S interpreted by me (1pt. min.)? @ -Not obtained What testing was considered but not performed? (CT, X-rays, U/S, labs)? Why? @ -None What meds were considered but not given? Why? @ -None Did you discuss the management of the patient with other professionals? @ -Christina Bates with [facility], who accepts the patient for admission. Did you reconcile home meds? @ -No Was smoking cessation discussed for >3mins.? @ -No Was critical care preformed (if so, how long)? @ -No Were there social determinants of health that impacted care today? How? (Homelessness, low income, unemployed, alcoholism, drug addiction, transportation, low edu. Level, literacy, decrease access to med. care, skilled nursing, rehab)? @ -No Was there de-escalation of care discussed even if they declined? (Discuss DNR or withdrawal of care, Hospice)? @ -No What co-morbidities impacted this encounter? (DM, HTN, Smoking, COPD, CAD, Cancer, CVA, Hep., AIDS, mental health diagnosis, sleep apnea, morbid obesity)? @ -Asthma Was patient admitted / discharged? @ -Admitted. Lab work obtained demonstrating leukocytosis and an elevated d- dimer of 2.09. Lab work was otherwise fairly unremarkable. Covid, influenza, and RSV testing were negative. Chest x-ray demonstrates a left lower lobe consolidation with developing consolidation on the right. CT angiogram of the chest was obtained due to the patient's symptoms an elevated d-dimer. No eviden ce of a pulmonary embolus was identified. They did note multifocal airspace/consolidative opacities throughout the left lung and to a lesser extent the right lung. Patient started on the pneumonia protocol with ceftriaxone and azithromycin. Blood and sputum cultures obtained. Patient admitted to medicine for failed outpatient management of pneumonia. Undiagnosed new problem with uncertain prognosis? @ -None Drug Therapy requiring intensive monitoring for toxicity (Heparin, Nitro, Insulin, Cardizem)? @ -None Were any procedures done? @ -None Diagnosis/symptom? @ -Pneumonia Acute, or Chronic, or Acute on Chronic? @ -Acute Uncomplicated (without systemic symptoms) or Complicated (systemic symptoms)? @ -Complicated Side effects of treatment? @ -None Exacerbation, Progression, or Severe Exacerbation] @ -Progression Poses a threat to life or bodily function? @ -Yes This case was discussed in detail with the attending ED physician, Dr. Good. Presentation, findings, and treatment plan discussed in detail as well. - Lab Data Result diagrams: 07/15/23 10:42 07/15/23 10:42 Lab Results 07/15/23 07/15/23 07/15/23 Range/Units 10:42 10:42 10:42 WBC 19.7 H (3.8-10.6) k/uL RBC 4.19 (3.80-5.40) m/uL Hgb 9.9 L (11.4-16.0) gm/dL Hct 31.8 L (34.0-46.0) % MCV 75.9 L (80.0-100.0) fL MCH 23.6 L (25.0-35.0) pg MCHC 31.1 (31.0-37.0) g/dL RDW 16.6 H (11.5-15.5) % Plt Count 401 (150-450) k/uL MPV 7.5 Neutrophils % (Manual) 77 % Lymphocytes % (Manual) 16 % Monocytes % (Manual) 7 % Neutrophils # (Manual) 15.17 H (1.3-7.7) k/uL Lymphocytes # (Manual) 3.15 (1.0-4.8) k/uL Monocytes # (Manual) 1.38 H (0-1.0) k/uL Nucleated RBCs 0 (0-0) /100 WBC Manual Slide Review Performed Hypochromasia Marked Anisocytosis Slight Microcytosis Slight PT 10.4 (10.0-12.5) sec INR 0.9 (<1.2) APTT 22.5 (22.0-30.0) sec D-Dimer 2.09 H (<0.60) mg/L FEU Sodium 141 (137-145) mmol/L Potassium 3.5 (3.5-5.1) mmol/L Chloride 105 (98-107) mmol/L Carbon Dioxide 26 (22-30) mmol/L Anion Gap 10 mmol/L BUN 22 H (7-17) mg/dL Creatinine 0.71 (0.52-1.04) mg/dL Est GFR (CKD-EPI)AfAm >90 (>60 ml/min/1.73 sqM) Est GFR (CKD-EPI)NonAf >90 (>60 ml/min/1.73 sqM) Glucose 90 (74-99) mg/dL Plasma Lactic Acid Adrian (0.7-2.0) mmol/L Calcium 9.3 (8.4-10.2) mg/dL Total Bilirubin 1.1 (0.2-1.3) mg/dL AST 20 (14-36) U/L ALT 17 (4-34) U/L Alkaline Phosphatase 86 (38-126) U/L Troponin I (0.000-0.034) ng/mL Total Protein 6.6 (6.3-8.2) g/dL Albumin 3.5 (3.5-5.0) g/dL Influenza Type A (PCR) (Not Detectd) Influenza Type B (PCR) (Not Detectd) RSV (PCR) (Not Detectd) SARS-CoV-2 (PCR) (Not Detectd) 07/15/23 07/15/23 07/15/23 Range/Units 10:42 10:42 10:42 WBC (3.8-10.6) k/uL RBC (3.80-5.40) m/uL Hgb (11.4-16.0) gm/dL Hct (34.0-46.0) % MCV (80.0-100.0) fL MCH (25.0-35.0) pg MCHC (31.0-37.0) g/dL RDW (11.5-15.5) % Plt Count (150-450) k/uL MPV Neutrophils % (Manual) % Lymphocytes % (Manual) % Monocytes % (Manual) % Neutrophils # (Manual) (1.3-7.7) k/uL Lymphocytes # (Manual) (1.0-4.8) k/uL Monocytes # (Manual) (0-1.0) k/uL Nucleated RBCs (0-0) /100 WBC Manual Slide Review Hypochromasia Anisocytosis Microcytosis PT (10.0-12.5) sec INR (<1.2) APTT (22.0-30.0) sec D-Dimer (<0.60) mg/L FEU Sodium (137-145) mmol/L Potassium (3.5-5.1) mmol/L Chloride (98-107) mmol/L Carbon Dioxide (22-30) mmol/L Anion Gap mmol/L BUN (7-17) mg/dL Creatinine (0.52-1.04) mg/dL Est GFR (CKD-EPI)AfAm (>60 ml/min/1.73 sqM) Est GFR (CKD-EPI)NonAf (>60 ml/min/1.73 sqM) Glucose (74-99) mg/dL Plasma Lactic Acid Adrian 1.1 (0.7-2.0) mmol/L Calcium (8.4-10.2) mg/dL Total Bilirubin (0.2-1.3) mg/dL AST (14-36) U/L ALT (4-34) U/L Alkaline Phosphatase (38-126) U/L Troponin I <0.012 (0.000-0.034) ng/mL Total Protein (6.3-8.2) g/dL Albumin (3.5-5.0) g/dL Influenza Type A (PCR) Not Detected (Not Detectd) Influenza Type B (PCR) Not Detected (Not Detectd) RSV (PCR) Not Detected (Not Detectd) SARS-CoV-2 (PCR) Not Detected (Not Detectd) - Radiology Data Radiology results: report reviewed, image reviewed Disposition Clinical Impression: Multifocal pneumonia Disposition: [facility] Time of Disposition: 12:45
[2023-07-15 10:54] LABS: Anisocytosis Slight; HCT 31.8 % (34.0-46.0); HGB 9.9 gm/dL (11.4-16.0); Hypochromasia Marked; MCH 23.6 pg (25.0-35.0); MCHC 31.1 g/dL (31.0-37.0); MCV 75.9 fL (80.0-100.0); Mean Platelet Volume 7.5; Microcytosis Slight; Platelet Count 401 k/uL (150-450); RBC 4.19 m/uL (3.80-5.40); RDW 16.6 % (11.5-15.5); WBC 19.7 k/uL (3.8-10.6)
[2023-07-15 11:10] LABS: INR 0.9 (<1.2); Partial Thromboplastin Time 22.5 sec (22.0-30.0); Prothrombin Time 10.4 sec (10.0-12.5)
--- NOTE | 2023-07-15 11:15 | XR ---
EXAMINATION TYPE: XR chest 2V DATE OF EXAM: 07/15/2023 COMPARISON: 07/13/2023 INDICATION: Difficulty breathing TECHNIQUE: Frontal and lateral views of the chest are obtained. FINDINGS: The heart size is normal. The pulmonary vasculature is normal. Patchy infiltrates are present on the left. Developing infiltrates are on the right. Correlate for pn eumonia. Follow-up is recommended. IMPRESSION: 1. Left lower lobe consolidation. Correlate for pneumonia. 2. Patchy present bilaterally. Consider atypical pneumonia within the differential. Follow-up is jo-ann mmended.
[2023-07-15 11:32] LABS: ALT 17 U/L (4-34); AST 20 U/L (14-36); African American GFR (CKD) >90 (>60 ml/min/1.73 sqM); Albumin 3.5 g/dL (3.5-5.0); Alkaline Phosphatase 86 U/L (38-126); Anion Gap 10 mmol/L; Blood Urea Nitrogen 22 mg/dL (7-17); Calcium 9.3 mg/dL (8.4-10.2); Carbon Dioxide 26 mmol/L (22-30); Chloride 105 mmol/L (98-107); Glucose 90 mg/dL (74-99); Non-African American GFR(CKD) >90 (>60 ml/min/1.73 sqM); Potassium 3.5 mmol/L (3.5-5.1); Sodium 141 mmol/L (137-145); Total Bilirubin 1.1 mg/dL (0.2-1.3); Total Protein 6.6 g/dL (6.3-8.2)
[2023-07-15 11:44] LABS: Lymphocytes # (M) 3.15 k/uL (1.0-4.8); Monocytes # (M) 1.38 k/uL (0-1.0); Neutrophils # (M) 15.17 k/uL (1.3-7.7); Neutrophils % (M) 77 %; Nucleated Red Blood Cells 0 /100 WBC (0-0); Total Cells Counted 100
--- NOTE | 2023-07-15 12:13 | CT ---
EXAMINATION TYPE: CT chest angio for PE DATE OF EXAM: 07/15/2023 COMPARISON: 02/02/2021 HISTORY: cough, SOB CT DLP: 359 mGycm Automated exposure control for dose reduction was used. CONTRAST: CT Chest for pulmonary embolism performed with with IV Contrast, patient injected with 100ml mL of Is ovue 370. FINDINGS: There are multifocal scattered consolidative/airspace densities throughout the left lung and to a muc h lesser extent the right lung is well. There is no pleural effusion, pleural thickening or pneumotho rax. There is no mediastinal, hilar or axillary adenopathy. There is a dilated air and fluid-filled esophagus which has been seen on multiple prior studies. Ther e is a lap band procedure The great vessels chest are normal there is no filling defects within the pulmonary arteries or branc hes to suggest pulmonary embolism. The osseous structures are intact. Limited scanning through the upper abdomen reveals cholecystectomy with no other gross abnormality. IMPRESSION: 1. No evidence of pulmonary embolism. 2. Multifocal airspace/consolidative opacity throughout the left lung and to a lesser extent the righ t lung. This is nonspecific finding and could represent bronchoalveolar pneumonia. Clinical correlati on short-term follow up to resolution is recommended. 3. Stable dilated air and fluid-filled esophagus with lap band. 4. No mediastinal, hilar or axillary adenopathy
[2023-07-15] MEDS ORDERED: ONDANSETRON 4 MG/2 ML VIAL IVP PRN (12:54)
[2023-07-15] MEDS ORDERED: MORPHINE SULFATE 4 MG/ML SYRINGE IV PRN (12:54)
[2023-07-15] MEDS ORDERED: NALOXONE 0.4 MG/ML 1 ML VIAL IV PRN (12:54)
[2023-07-15] MEDS ORDERED: IPRATROPIUM-ALBUTEROL 3 ML NEB INHALATION PRN (15:34)
[2023-07-15] MEDS ORDERED: DEXTROSE 50% SYRINGE 50 ML IVP PRN ×2 (15:35)
[2023-07-15] MEDS: IPRATROPIUM-ALBUTEROL 3 ML NEB INHALATION SCH ×2 (16:39→18:18)
[2023-07-15] MEDS: INSULIN ASPART (NovoLOG) 100 UNIT/ML VIAL SQ SCH ×2 (17:37→21:55)
[2023-07-15 17:38] LABS: Glucose,Whole Blood 97 mg/dL (70-110)
[2023-07-15] MEDS: SYMBICORT 160-4.5 MCG INHALER INHALATION SCH (18:18)
[2023-07-15] MEDS: methylPREDNISolone SOD SUCCI 125 MG/2 ML VIAL IV SCH (18:31)
--- NOTE | 2023-07-15 20:35 | HP ---
HISTORY AND PHYSICAL CHIEF COMPLAINT: Pneumonia history and failure of outpatient treatment. HISTORY OF PRESENT ILLNESS: This is a 48-year-old woman with past medical history of asthma, history of bariatric surgery, multiple complex medications, being followed by Dr. Presley in the outpatient setting, work in customs. The patient is having pneumonia for the last 1 month, the patient has taken multiple antibiotics with lack of improvement. The patient came to [facility]. The D-dimer was elevated. CT angio showed no evidence of pulmonary embolism, but the patient has shortness of breath and the patient finished 3 rounds of antibiotics and steroids and CT scan showed multifocal pneumonia. The patient was admitted for further evaluation and treatment. The patient has taken COVID vaccine. There is no history of any fever, rigors, or chills at this time. PAST MEDICAL HISTORY: History of asthma, pneumonia, bariatric surgery, rest of the history and rest of the chart is also reviewed. HOME MEDICATIONS: Reviewed include prednisone, doses and rest of medications reviewed. ALLERGIES: Cat dander. FAMILY HISTORY: The patient is adopted. SOCIAL HISTORY: No history of smoking or alcohol. REVIEW OF SYSTEMS: A 14-point review is negative except as mentioned earlier. PHYSICAL EXAMINATION: VITAL SIGNS: Pulse 70, blood pressure 119/70, respirations 14. HEENT: Conjunctivae normal. NECK: No jugular venous distention. CARDIOVASCULAR: S1, S2 muffled. RESPIRATIONS: Diminished at the bases. ABDOMEN: Soft, nontender. LEGS: No edema. No swelling. NERVOUS SYSTEM: No focal deficit. LABORATORY DATA: WBC 19.7, rest of the labs are noted. ASSESSMENT: 1. Multifocal pneumonia with failure of outpatient treatment. Rule out COVID pneumonia or atypical pneumonia or viral pneumonia. 2. Increased WBC. 3. Anemia, microcytic, undetermined etiology. 4. Elevated D-dimer without any evidence of pulmonary embolism. 5. History of asthma. 6. Gastroesophageal reflux disease. 7. History of childhood asthma. 8. History of anemia. 9. History of bariatric surgery. 10.History of cholecystectomy. 11.Multiple medical issues. RECOMMENDATIONS: This 48-year-old woman presented with multiple complex medical issues. At this time, I recommended to continue with current medications. We will initiate broad-spectrum IV antibiotics, infectious disease, pulmonary consultations, otherwise cultures, intensive bronchodilator treatment. Prognosis is guarded because of multiple complex medical conditions, further recommendations to follow. See orders for details. We will check a procalcitonin as well as urine Legionella mycoplasma will be checked. MMODL / IJN: [id number] /
[2023-07-15 20:46] LABS: Glucose,Whole Blood 132 mg/dL (70-110)
[2023-07-15] MEDS: KETOROLAC 15 MG/ML 1 ML VIAL IVP PRN (21:09)
[2023-07-15] MEDS: HEPARIN SODIUM,PORCINE 5,000 UNIT/ML 1 ML VIAL SQ SCH (21:09)
--- NOTE | 2023-07-15 21:18 | P.CONS ---
History of Present Illness - Reason for Consult Consult date: 07/15/23 - History of Present Illness Patient is a 48-year-old female with a past medical history significant for asthma reflux presenting to the ER for evaluation of shortness of breath patient mention she has been diagnosed with pneumonia about 4 weeks ago and has been treated with 3 different courses of antibiotics and steroids with minimal relief patient mention she went to [place] and was doing better however when came back to [place] her symptoms started getting worse has been complaining of mostly shortness of breath on minimal exertion even at rest patient denies any chest pain she also have a cough moderate intensity with occasional sputum production no hemoptysis no nausea no vomiting no choking on the food no abdominal pain or diarrhea patient mention she went to see her PCP who advised her to go to the ER for further evaluation on presentation to the hospital the patient was afebrile and no fever has been recorded subsequently patient was not tachycardic hypotensive or hypoxic patient did have white count of 19.7 with a left shift creatinine 0.71 influenza RSV COVID testing was negative patient did have a chest x-ray left lower lobe consolidation correlate for pneumonia patchy present bilaterally patient also have a CT angiogram of the chest no evidence of PE multifocal airspace consolidation throughout the lungs patient was started on ceftriaxone and Zithromax along with Solu-Medrol infec tious disease was consulted for further management of antibiotic therapy Past Medical History Past Medical History: Asthma, Blood Disorder, GERD/Reflux, Pneumonia Additional Past Medical History / Comment(s): Childhood asthma. Anemia, resolved for the last year. Pneumonia 2 yrs ago. History of Any Multi-Drug Resistant Organisms: None Reported Past Surgical History: Bariatric Surgery, Cholecystectomy, Hysterectomy Additional Past Surgical History / Comment(s): Lap band, oopherectomy. Past Anesthesia/Blood Transfusion Reactions: No Reported Reaction Additional Past Anesthesia/Blood Transfusion Reaction / Comm: Family hx unknown, pt adopted. Past Psychological History: No Psychological Hx Reported Smoking Status: Never smoker Past Alcohol Use History: Occasional Past Drug Use History: None Reported - Past Family History Father Family Medical History: Unable to Obtain Additional Family Medical History / Comment(s): Patient was adopted. Medications and Allergies Home Medications Medication Instructions Recorded Confirmed Type Albuterol Sulfate [Albuterol 2 puff PO RT-Q6H PRN 07/15/23 07/15/23 History Sulfate Hfa] Doxycycline [Vibramycin] 100 mg PO BID 07/15/23 07/15/23 History Ipratropium-Albuterol Nebulize 3 ml INHALATION RT-TID 07/15/23 07/15/23 History [Duoneb 0.5 mg-3 mg/3 ml Soln] predniSONE See Taper PO DAILY 07/15/23 07/15/23 History Allergies Allergy/AdvReac Type Severity Reaction Status Date / Time cat dander Allergy Unknown Verified 07/15/23 10:35 feathers Allergy Unknown Verified 07/15/23 10:35 latex Allergy Rash/Hives Verified 07/15/23 10:35 strawberry Allergy Rash/Hives Verified 07/15/23 10:35 Physical Exam Vitals: Vital Signs Temp Pulse Resp BP Pulse Ox 07/15/23 15:45 72 16 123/83 99 07/15/23 12:31 70 14 119/70 96 07/15/23 09:19 98.2 F 100 26 H 132/73 93 L Intake and Output 07/15/23 07/15/23 07/15/23 06:59 14:59 22:59 Other: Weight 92.986 kg Results CBC & Chem 7: 07/15/23 10:42 07/15/23 10:42 Labs: Abnormal Lab Results - Last 24 Hours (Table) 07/15/23 07/15/23 07/15/23 Range/Units 10:42 10:42 10:42 WBC 19.7 H (3.8-10.6) k/uL Hgb 9.9 L (11.4-16.0) gm/dL Hct 31.8 L (34.0-46.0) % MCV 75.9 L (80.0-100.0) fL MCH 23.6 L (25.0-35.0) pg RDW 16.6 H (11.5-15.5) % Neutrophils # (Manual) 15.17 H (1.3-7.7) k/uL Monocytes # (Manual) 1.38 H (0-1.0) k/uL D-Dimer 2.09 H (<0.60) mg/L FEU BUN 22 H (7-17) mg/dL Assessment and Plan Plan: 1patient presented to hospital with increasing shortness of breath and cough in this patient significantly going on for about 4 weeks and has completed 3 different courses of antibiotic with evidence of multifocal infiltrate on the CT concerning for possible typical versus atypical pneumonia 2-we will try to obtain a sputum for Gram stain culture check a CRP procalcitonin, urine for Legionella antigen Mycoplasma serology 3-continue with Rocephin and Zithromax while awaiting further workup to be completed We will follow on clinical condition and cultures to further adjust medication if needed Thank you for this consultation we will follow the patient along with you Dictation was produced using [employer] dictation software. please excuse any grammatical, word or spelling errors. Time with Patient: Greater than 30
[2023-07-16] MEDS: methylPREDNISolone SOD SUCCI 125 MG/2 ML VIAL IV SCH ×4 (00:13→17:38)
[2023-07-16] MEDS: guaiFENesin SYRUP 100MG/5ML 200 MG/10 ML CUP PO PRN (01:50)
[2023-07-16 03:56] LABS: HIV 2 AB Non-Reactive (Non-Reactive); HIV AB P24 Non-Reactive (Non-Reactive); HIV P24 AG Non-Reactive (Non-Reactive)
[2023-07-16 06:21] LABS: Glucose,Whole Blood 129 mg/dL (70-110)
[2023-07-16] MEDS: INSULIN ASPART (NovoLOG) 100 UNIT/ML VIAL SQ SCH ×2 (06:58→20:46)
[2023-07-16] MEDS ORDERED: PANTOPRAZOLE 40 MG TABLET PO SCH (07:30)
[2023-07-16 07:49] LABS: Anisocytosis Slight; HCT 30.8 % (34.0-46.0); HGB 9.2 gm/dL (11.4-16.0); Hypochromasia Marked; MCH 23.4 pg (25.0-35.0); MCV 78.2 fL (80.0-100.0); Mean Platelet Volume 8.5; Microcytosis Slight; Platelet Count 378 k/uL (150-450); RBC 3.94 m/uL (3.80-5.40); RDW 16.3 % (11.5-15.5); WBC 11.6 k/uL (3.8-10.6)
[2023-07-16 08:12] LABS: African American GFR (CKD) >90 (>60 ml/min/1.73 sqM); Anion Gap 12 mmol/L; Blood Urea Nitrogen 27 mg/dL (7-17); Calcium 9.4 mg/dL (8.4-10.2); Carbon Dioxide 25 mmol/L (22-30); Chloride 103 mmol/L (98-107); Glucose 123 mg/dL (74-99); Non-African American GFR(CKD) >90 (>60 ml/min/1.73 sqM); Potassium 4.7 mmol/L (3.5-5.1); Sodium 140 mmol/L (137-145)
[2023-07-16] MEDS: HEPARIN SODIUM,PORCINE 5,000 UNIT/ML 1 ML VIAL SQ SCH ×2 (09:02→20:53)
[2023-07-16] MEDS: IPRATROPIUM-ALBUTEROL 3 ML NEB INHALATION SCH ×4 (09:32→20:35)
[2023-07-16] MEDS: SYMBICORT 160-4.5 MCG INHALER INHALATION SCH ×2 (09:32→20:35)
[2023-07-16] MEDS: AZITHROMYCIN 500 MG TAB PO SCH (09:53)
[2023-07-16] MEDS: PANTOPRAZOLE 40 MG/10 ML VIAL IVP SCH ×2 (09:53→20:53)
[2023-07-16 10:13] LABS: Band Neutrophils % 1 %; Monocytes # (M) 0.23 k/uL (0-1.0); Neutrophils % (M) 91 %; Nucleated Red Blood Cells 0 /100 WBC (0-0); Total Cells Counted 100
[2023-07-16] MEDS: ONDANSETRON 4 MG/2 ML VIAL IVP PRN ×2 (10:14→20:53)
[2023-07-16] MEDS: KETOROLAC 15 MG/ML 1 ML VIAL IVP PRN (12:07)
--- NOTE | 2023-07-16 13:04 | P.PN ---
Subjective Progress Note Date: 07/16/23 Principal diagnosis: Reason for follow-up with abnormal CT question of pneumonia Patient is a 48-year-old female with a past medical history significant for asthma reflux presenting to the ER for evaluation of shortness of breath patient mention she has been diagnosed with pneumonia about 4 weeks ago and has been treated with 3 different courses of antibiotics and steroids with minimal relief, patient did have a CT angiogram of the chest that was negative for PE did shows multifocal airspace consolidative opacity throughout the left lung and to a lesser extent the right lung admitted to hospital for pneumonia and workup. On today's evaluation that is 07/16/2023, patient denies having any fever or any chills, patient is breathing slightly comfortably not requiring any supplemental oxygen patient mention cough is slightly decreased in intensity less productive did have some nausea but no vomiting no abdominal pain no diarrhea. Patient white count is down to 11.6, creatinine 0.70 CRP 13.7 procalcitonin 0.07 HIV testing was negative Objective - Vital Signs Vital signs: Vital Signs Temp 98.3 F 07/16/23 07:00 Pulse 80 07/16/23 09:44 Resp 18 07/16/23 07:00 BP 116/82 07/16/23 07:00 Pulse Ox 91 L 07/16/23 07:00 FiO2 Intake & Output 07/15/23 07/16/23 07/16/23 18:59 06:59 18:59 Intake Total 340 300 120 Balance 340 300 120 Weight 92.986 kg Intake: Oral 340 300 120 Other: # Voids 5 1 - Exam GENERAL DESCRIPTION: Middle-aged female up in bed in no distress RESPIRATORY SYSTEM: Unlabored breathing , coarse breath sounds bilaterally HEART: S1 S2 regular rate and rhythm , ABDOMEN: Soft , no tenderness EXTREMITIES: No edema feet - Labs CBC & Chem 7: 07/16/23 07:05 07/16/23 07:05 Labs: Abnormal Lab Results - Last 24 Hours (Table) 07/15/23 07/15/23 07/15/23 Range/Units 10:42 10:42 10:42 WBC 19.7 H (3.8-10.6) k/uL Hgb 9.9 L (11.4-16.0) gm/dL Hct 31.8 L (34.0-46.0) % MCV 75.9 L (80.0-100.0) fL MCH 23.6 L (25.0-35.0) pg MCHC (31.0-37.0) g/dL RDW 16.6 H (11.5-15.5) % Neutrophils # (Manual) 15.17 H (1.3-7.7) k/uL Lymphocytes # (Manual) (1.0-4.8) k/uL Monocytes # (Manual) 1.38 H (0-1.0) k/uL ESR (0-20) mm/Hr D-Dimer 2.09 H (<0.60) mg/L FEU BUN 22 H (7-17) mg/dL Glucose (74-99) mg/dL POC Glucose (mg/dL) (70-110) mg/dL Hemoglobin A1c (<=6.0) % C-Reactive Protein (<1.0) mg/dL 07/15/23 07/15/23 07/15/23 Range/Units 15:55 15:55 15:55 WBC (3.8-10.6) k/uL Hgb (11.4-16.0) gm/dL Hct (34.0-46.0) % MCV (80.0-100.0) fL MCH (25.0-35.0) pg MCHC (31.0-37.0) g/dL RDW (11.5-15.5) % Neutrophils # (Manual) (1.3-7.7) k/uL Lymphocytes # (Manual) (1.0-4.8) k/uL Monocytes # (Manual) (0-1.0) k/uL ESR 50 H (0-20) mm/Hr D-Dimer (<0.60) mg/L FEU BUN (7-17) mg/dL Glucose (74-99) mg/dL POC Glucose (mg/dL) (70-110) mg/dL Hemoglobin A1c 6.1 H (<=6.0) % C-Reactive Protein 13.7 H (<1.0) mg/dL 07/15/23 07/16/23 07/16/23 Range/Units 20:45 06:19 07:05 WBC 11.6 H (3.8-10.6) k/uL Hgb 9.2 L (11.4-16.0) gm/dL Hct 30.8 L (34.0-46.0) % MCV 78.2 L (80.0-100.0) fL MCH 23.4 L (25.0-35.0) pg MCHC 30.0 L (31.0-37.0) g/dL RDW 16.3 H (11.5-15.5) % Neutrophils # (Manual) 10.60 H (1.3-7.7) k/uL Lymphocytes # (Manual) 0.70 L (1.0-4.8) k/uL Monocytes # (Manual) (0-1.0) k/uL ESR (0-20) mm/Hr D-Dimer (<0.60) mg/L FEU BUN (7-17) mg/dL Glucose (74-99) mg/dL POC Glucose (mg/dL) 132 H 129 H (70-110) mg/dL Hemoglobin A1c (<=6.0) % C-Reactive Protein (<1.0) mg/dL 07/16/23 Range/Units 07:05 WBC (3.8-10.6) k/uL Hgb (11.4-16.0) gm/dL Hct (34.0-46.0) % MCV (80.0-100.0) fL MCH (25.0-35.0) pg MCHC (31.0-37.0) g/dL RDW (11.5-15.5) % Neutrophils # (Manual) (1.3-7.7) k/uL Lymphocytes # (Manual) (1.0-4.8) k/uL Monocytes # (Manual) (0-1.0) k/uL ESR (0-20) mm/Hr D-Dimer (<0.60) mg/L FEU BUN 27 H (7-17) mg/dL Glucose 123 H (74-99) mg/dL POC Glucose (mg/dL) (70-110) mg/dL Hemoglobin A1c (<=6.0) % C-Reactive Protein (<1.0) mg/dL Microbiology - Last 24 Hours (Table) 07/15/23 12:31 Gram Stain - Preliminary Sputum Assessment and Plan (1) Multifocal pneumonia Current Visit: Yes Status: Acute Code(s): J18.9 - PNEUMONIA, UNSPECIFIED ORGANISM SNOMED Code(s): 862095021 Plan: 1patient presented to hospital with increasing shortness of breath and cough in this patient significantly going on for about 4 weeks and has completed 3 different courses of antibiotic with evidence of multifocal infiltrate on the CT concerning for possible typical versus atypical pneumonia 2-workup in progress, patient did have some clinical improvement 3-patient to continue with Rocephin and Zithromax while awaiting further workup to be completed Dictation was produced using [employer] dictation software. please excuse any grammatical, word or spelling errors. Time with Patient: Less than 30
[2023-07-16 20:27] LABS: Glucose,Whole Blood 149 mg/dL (70-110)
--- NOTE | 2023-07-16 23:53 | PN ---
PROGRESS NOTE DATE OF SERVICE: 07/16/2023 SUBJECTIVE: This is a 48-year-old woman with a past history of asthma, was admitted with pneumonia, multifocal with failure of outpatient treatment. The patient is also receiving intensive bronchodilator treatment. COVID-19 is negative. CRP is elevated to 13.7. Multiple consultants are following the patient. PAST MEDICAL HISTORY: Reviewed. REVIEW OF SYSTEMS: 14-point review is negative as mentioned. CURRENT MEDICATIONS: Reviewed and include DuoNeb, dose and rest of medications noted. PHYSICAL EXAMINATION: VITAL SIGNS: Pulse is 80, blood pressure 116/82, respirations 18. HEENT: Conjunctivae normal. NECK: No jugular venous distention. CARDIOVASCULAR: S1, S2. RESPIRATIONS: Bilateral scattered rhonchi. ABDOMEN: Soft. NERVOUS SYSTEM: No focal deficit. LABS: WBC 11.6. Rest of the labs are noted. CAT scan and chest x-ray also evaluated, personally reviewed. ASSESSMENT: 1. Multifocal pneumonia with failure of outpatient treatment, possibly atypical or viral pneumonia or gram-negative bacterial pneumonia. 2. Increased WBC. 3. Anemia, microcytic, undetermined etiology. 4. Elevated D-dimer without any evidence of pulmonary embolism. 5. History of asthma. 6. Gastroesophageal reflux disease. 7. History of childhood asthma. 8. History of anemia. 9. History of bariatric surgery. 10.History of cholecystectomy. 11.Multiple medical issues. RECOMMENDATION: Continue current management and treatment, otherwise at this time continue with antibiotics bronchodilators, empiric steroids. I would also recommend Pulmonary and Infectious Disease evaluation. Guarded prognosis. Further recommendations to follow. MMODL / IJN: [id number] /
[2023-07-17] MEDS: KETOROLAC 15 MG/ML 1 ML VIAL IVP PRN (00:29)
[2023-07-17] MEDS: guaiFENesin SYRUP 100MG/5ML 200 MG/10 ML CUP PO PRN (00:30)
[2023-07-17] MEDS: methylPREDNISolone SOD SUCCI 125 MG/2 ML VIAL IV SCH ×4 (00:30→18:15)
[2023-07-17 06:16] LABS: Glucose,Whole Blood 122 mg/dL (70-110)
[2023-07-17] MEDS: HEPARIN SODIUM,PORCINE 5,000 UNIT/ML 1 ML VIAL SQ SCH ×2 (07:43→22:00)
[2023-07-17] MEDS: AZITHROMYCIN 500 MG TAB PO SCH (07:43)
[2023-07-17] MEDS: ACETAMINOPHEN TAB 325 MG TAB PO PRN ×2 (08:05→13:19)
--- NOTE | 2023-07-17 08:35 | P.CNPUL ---
History of Present Illness Consult date: 07/17/23 Requesting physician: Chelsey Vernon Reason for consult: dyspnea, cough, pneumonia, abnormal CXR/CT Chief complaint: Shortness of breath and cough. History of present illness: Pulmonary consult dated 07/17/2023. 48-year-old female, who presented to the emergency department on July 15, co mplaining of shortness of breath, and cough. She not been feeling well for a couple weeks. She apparently had received some steroids and antibiotics by her primary care provider, without benefit. The patient came into the hospital, because she was not improving. She apparently does have a history of asthma, and, we did see her in the past, for pleural effusion. The patient is a nonsmoker. Her primary care provider is Dr. Israel Presley. Currently, she is on room air. She is receiving azithromycin, Rocephin, breathing treatments, and corticosteroids. Chest x-ray and CT scan shows bilateral infiltrates, left greater than right. White count 11.6, hemoglobin 9.2, hematocrit 31, platelet c ount 378,000. Sodium 140, potassium 4.7, chlorides 103, CO2 25, BUN 27, and creatinine 0.70. Calcium is normal. Sputum Gram stain showing both gram- positive cocci and gram-negative bacilli. Blood cultures are currently negative. Review of Systems REVIEW OF SYSTEMS: CONSTITUTIONAL: [Negative.] NEUROLOGIC: [ Negative.] HEENT: [ Negative.] CARDIAC: [Negative.] PULMONARY: Shortness of breath, chest congestion, cough, occasional phlegm production. GI: [Negative.] : [Negative.] RHEUMATOLOGIC: [ Negative.] IMMUNOLOGIC: [ Negative.] ENDOCRINE: [Negative. ] DERMATOLOGIC: [Negative.] Past Medical History Past Medical History: Asthma, Blood Disorder, GERD/Reflux, Pneumonia Additional Past Medical History / Comment(s): Childhood asthma. Anemia, resolved for the last year. Pneumonia 2 yrs ago. History of Any Multi-Drug Resistant Organisms: None Reported Past Surgical History: Bariatric Surgery, Cholecystectomy, Hysterectomy Additional Past Surgical History / Comment(s): Lap band, oopherectomy. Past Anesthesia/Blood Transfusion Reactions: No Reported Reaction Additional Past Anesthesia/Blood Transfusion Reaction / Comment(s): Family hx unknown, pt adopted. Past Psychological History: No Psychological Hx Reported Smoking Status: Never smoker Past Alcohol Use History: Occasional Past Drug Use History: None Reported - Past Family History Father Family Medical History: Unable to Obtain Additional Family Medical History / Comment(s): Patient was adopted. Medications and Allergies Home Medications Medication Instructions Recorded Confirmed Type Albuterol Sulfate [Albuterol 2 puff PO RT-Q6H PRN 07/15/23 07/15/23 History Sulfate Hfa] Doxycycline [Vibramycin] 100 mg PO BID 07/15/23 07/15/23 History Ipratropium-Albuterol Nebulize 3 ml INHALATION RT-TID 07/15/23 07/15/23 History [Duoneb 0.5 mg-3 mg/3 ml Soln] predniSONE See Taper PO DAILY 07/15/23 07/15/23 History Allergies Allergy/AdvReac Type Severity Reaction Status Date / Time cat dander Allergy Unknown Verified 07/15/23 10:35 feathers Allergy Unknown Verified 07/15/23 10:35 latex Allergy Rash/Hives Verified 07/15/23 10:35 strawberry Allergy Rash/Hives Verified 07/15/23 10:35 Physical Exam Osteopathic Statement: *. No significant issues noted on an osteopathic s tructural exam other than those noted in the History and Physical/Consult. Vitals: Vital Signs Temp Pulse Pulse Resp BP Pulse Ox 07/17/23 01:38 97.9 F 77 16 104/58 91 L 07/16/23 20:46 80 07/16/23 20:36 80 07/16/23 19:23 98.0 F 75 16 106/72 96 07/16/23 16:43 80 07/16/23 16:32 80 07/16/23 15:00 98 F 102 H 18 107/65 92 L 07/16/23 12:46 76 07/16/23 12:35 76 07/16/23 09:44 80 07/16/23 09:33 80 Intake and Output 07/16/23 07/17/23 07/17/23 22:59 06:59 14:59 Intake Total 120 Balance 120 Intake: Oral 120 Other: # Voids 2 No acute distress, oriented 3. Currently on room air. Saturations between 94- 96%. HEENT examination is grossly unremarkable. Mucous membranes are moist. No oral lesions. Neck supple. Full range of motion. No adenopathy thyromegaly or neck vein distention. Cardiovascular examination reveals regular rhythm rate. S1-S2 normal. No S3 or S4. No discernible murmur noted. Heart rate 67 bpm. Lungs reveal scattered bilateral rhonchi. Minimal wheezes. No crackles. Breath sounds equal bilaterally. Abdomen soft bowel sounds are heard. No masses or tenderness. Extremities are intact. No cyanosis clubbing or edema. Skin is without rash or lesion. Neurologic examination is brief but nonfocal. Results - Laboratory Findings CBC and BMP: 07/16/23 07:05 07/16/23 07:05 PT/INR, D-dimer PT 10.4 sec (10.0-12.5) 07/15/23 10:42 INR 0.9 (<1.2) 07/15/23 10:42 D-Dimer 2.09 mg/L FEU (<0.60) H 07/15/23 10:42 Abnormal lab findings: Abnormal Labs 07/15/23 07/15/23 07/15/23 10:42 10:42 10:42 WBC 19.7 H Hgb 9.9 L Hct 31.8 L MCV 75.9 L MCH 23.6 L MCHC RDW 16.6 H Neutrophils # (Manual) 15.17 H Lymphocytes # (Manual) Monocytes # (Manual) 1.38 H ESR D-Dimer 2.09 H BUN 22 H Glucose POC Glucose (mg/dL) Hemoglobin A1c C-Reactive Protein 07/15/23 07/15/23 07/15/23 15:55 15:55 15:55 WBC Hgb Hct MCV MCH MCHC RDW Neutrophils # (Manual) Lymphocytes # (Manual) Monocytes # (Manual) ESR 50 H D-Dimer BUN Glucose POC Glucose (mg/dL) Hemoglobin A1c 6.1 H C-Reactive Protein 13.7 H 07/15/23 07/16/23 07/16/23 20:45 06:19 07:05 WBC 11.6 H Hgb 9.2 L Hct 30.8 L MCV 78.2 L MCH 23.4 L MCHC 30.0 L RDW 16.3 H Neutrophils # (Manual) 10.60 H Lymphocytes # (Manual) 0.70 L Monocytes # (Manual) ESR D-Dimer BUN Glucose POC Glucose (mg/dL) 132 H 129 H Hemoglobin A1c C-Reactive Protein 07/16/23 07/16/23 07/17/23 07:05 20:26 06:14 WBC Hgb Hct MCV MCH MCHC RDW Neutrophils # (Manual) Lymphocytes # (Manual) Monocytes # (Manual) ESR D-Dimer BUN 27 H Glucose 123 H POC Glucose (mg/dL) 149 H 122 H Hemoglobin A1c C-Reactive Protein - Diagnostic Findings Chest x-ray: image reviewed CT scan - chest: image reviewed Assessment and Plan Assessment: Bilateral pneumonia, left greater than right, in a patient with a history of chronic bronchial asthma. History of gastroesophageal reflux disease. History of anemia. Obesity, with previous bariatric surgery. Lifelong nonsmoker. Plan: Plan dated 07/17/2023. The patient apparently has had problems with pneumonia, in the past, and states that she has been having chronic illness, relating to her lungs, and lung disease, i.e. asthma. The patient would like to follow-up with us, after discharge. The patient may need additional testing including hypersensitivity screening, fungal serology, bronchoscopy with biopsy, immunoglobulin profile IgG subtypes, etc. The patient's asthma will also need additional attention, starting with pulmonary function testing, and IgE level, and absolute eosinophil count. Additional recommendations and suggestions are forthcoming. The patient's on good medications currently. We will continue to follow make recommendations along the way. Time with Patient: Greater than 30
[2023-07-17] MEDS: IPRATROPIUM-ALBUTEROL 3 ML NEB INHALATION SCH ×4 (08:44→18:41)
[2023-07-17] MEDS: SYMBICORT 160-4.5 MCG INHALER INHALATION SCH ×2 (08:44→18:41)
[2023-07-17] MEDS: INSULIN ASPART (NovoLOG) 100 UNIT/ML VIAL SQ SCH ×2 (09:18→22:00)
[2023-07-17] MEDS: ONDANSETRON 4 MG/2 ML VIAL IVP PRN (09:39)
[2023-07-17] MEDS: PANTOPRAZOLE 40 MG/10 ML VIAL IVP SCH ×2 (09:39→22:00)
[2023-07-17 10:05] LABS: Basophils # (A) 0.02 X 10*3/uL (0.00-0.10); Basophils % (A) 0.1 %; Eosinophils # (A) 0 X 10*3/uL (0.04-0.35); Eosinophils % (A) 0 %; HCT 28.5 % (37.2-46.3); HGB 8.6 g/dL (12.0-15.0); Lymphocytes # (A) 1.09 X 10*3/uL (0.90-5.00); Lymphocytes % (A) 7.6 %; MCH 23.1 pg (27.0-32.0); MCHC 30.2 g/dL (32.0-37.0); MCV 76.4 FL (80.0-97.0); Mean Platelet Volume 10.8 FL (9.5-12.2); Monocytes # (A) 0.37 X 10*3/uL (0.20-1.00); Monocytes % (A) 2.6 %; NRBC Per 100 WBC 0 X 10*3/uL (0.00-0.01); Neutrophils # (A) 12.83 X 10*3/uL (1.80-7.70); Neutrophils % (A) 89.1 %; Platelet Count 409 X 10*3/uL (140-440); RBC 3.73 X 10*6/uL (4.10-5.20); RDW 17.3 % (11.5-14.5); WBC 14.39 X 10*3/uL (4.50-10.00)
[2023-07-17 10:10] LABS: ALT 15 U/L (8-44); AST 7 U/L (13-35); Albumin 3.4 g/dL (3.8-4.9); Albumin/Globulin Ratio 1.36 Ratio (1.60-3.17); Alkaline Phosphatase 56 U/L (41-126); Blood Urea Nitrogen 35.1 mg/dL (9.0-27.0); Calcium 9.3 mg/dL (8.7-10.3); Carbon Dioxide 27.2 mmol/L (21.6-31.8); Chloride 104 mmol/L (96-109); Globulin 2.5 g/dL (1.6-3.3); Glucose 130 mg/dL (70-110); Potassium 4.8 mmol/L (3.5-5.5); Sodium 141 mmol/L (135-145); Total Bilirubin 0.3 mg/dL (0.3-1.2); Total Protein 5.9 g/dL (6.2-8.2)
--- NOTE | 2023-07-17 15:23 | P.PN ---
Subjective Progress Note Date: 07/17/23 Principal diagnosis: Reason for follow-up with abnormal CT question of pneumonia Patient is a 48-year-old female with a past medical history significant for asthma reflux presenting to the ER for evaluation of shortness of breath patient mention she has been diagnosed with pneumonia about 4 weeks ago and has been treated with 3 different courses of antibiotics and steroids with minimal relief, patient did have a CT angiogram of the chest that was negative for PE did shows multifocal airspace consolidative opacity throughout the left lung and to a lesser extent the right lung admitted to hospital for pneumonia and workup. On today's evaluation that is 07/17/2023, patient remains to be afebrile, patient is breathing slightly comfortably on room air, the patient cough is slightly decreased in intensity less productive did have some nausea, the patient denies vomiting no abdominal pain no diarrhea. Patient white count is slightly up to 14.39, creatinine 0.9 CRP 13.7 procalcitonin 0.07 HIV testing was negative Objective - Vital Signs Vital signs: Vital Signs Temp 98.4 F 07/17/23 07:00 Pulse 80 07/17/23 12:15 Resp 18 07/17/23 07:00 BP 106/68 07/17/23 07:00 Pulse Ox 94 L 07/17/23 07:00 FiO2 Intake & Output 07/16/23 07/17/23 07/17/23 18:59 06:59 18:59 Intake Total 360 240 Balance 360 240 Intake: Oral 360 240 Other: # Voids 1 2 1 - Exam GENERAL DESCRIPTION: Middle-aged female up in bed in no distress RESPIRATORY SYSTEM: Unlabored breathing , coarse breath sounds bilaterally HEART: S1 S2 regular rate and rhythm , ABDOMEN: Soft , no tenderness EXTREMITIES: No edema feet - Labs CBC & Chem 7: 07/17/23 05:55 07/17/23 05:55 Labs: Abnormal Lab Results - Last 24 Hours (Table) 07/16/23 07/17/23 07/17/23 Range/Units 20:26 05:55 05:55 WBC 14.39 H (4.50-10.00) X 10*3/uL RBC 3.73 L (4.10-5.20) X 10*6/uL Hgb 8.6 L (12.0-15.0) g/dL Hct 28.5 L (37.2-46.3) % MCV 76.4 L (80.0-97.0) FL MCH 23.1 L (27.0-32.0) pg MCHC 30.2 L (32.0-37.0) g/dL RDW 17.3 H (11.5-14.5) % Immature Gran # 0.08 H (0.00-0.04) X 10*3/uL Neutrophils # 12.83 H (1.80-7.70) X 10*3/uL Eosinophils # 0 L (0.04-0.35) X 10*3/uL BUN 35.1 H (9.0-27.0) mg/dL BUN/Creatinine Ratio 39.00 H (12.00-20.00) Ratio Glucose 130 H (70-110) mg/dL POC Glucose (mg/dL) 149 H (70-110) mg/dL AST 7 L (13-35) U/L Total Protein 5.9 L (6.2-8.2) g/dL Albumin 3.4 L (3.8-4.9) g/dL Albumin/Globulin Ratio 1.36 L (1.60-3.17) Ratio // Range/Units 06:14 WBC (4.50-10.00) X 10*3/uL RBC (4.10-5.20) X 10*6/uL Hgb (12.0-15.0) g/dL Hct (37.2-46.3) % MCV (80.0-97.0) FL MCH (27.0-32.0) pg MCHC (32.0-37.0) g/dL RDW (11.5-14.5) % Immature Gran # (0.00-0.04) X 10*3/uL Neutrophils # (1.80-7.70) X 10*3/uL Eosinophils # (0.04-0.35) X 10*3/uL BUN (9.0-27.0) mg/dL BUN/Creatinine Ratio (12.00-20.00) Ratio Glucose (70-110) mg/dL POC Glucose (mg/dL) 122 H (70-110) mg/dL AST (13-35) U/L Total Protein (6.2-8.2) g/dL Albumin (3.8-4.9) g/dL Albumin/Globulin Ratio (1.60-3.17) Ratio Microbiology - Last 24 Hours (Table) 07/16/23 09:37 Gram Stain - Preliminary Sputum 07/15/23 10:42 Blood Culture - Preliminary Blood 07/15/23 10:42 Blood Culture - Preliminary Blood 07/15/23 12:31 Gram Stain - Preliminary Sputum Assessment and Plan (1) Multifocal pneumonia Current Visit: Yes Status: Acute Code(s): J18.9 - PNEUMONIA, UNSPECIFIED ORGANISM SNOMED Code(s): 254731306 Plan: 1patient presented to hospital with increasing shortness of breath and cough in this patient significantly going on for about 4 weeks and has completed 3 different courses of antibiotic with evidence of multifocal infiltrate on the CT concerning for possible typical versus atypical pneumonia 2-cultures are currently pending 3-patient did have some clinical improvement and will continue with Rocephin and Zithromax while awaiting for the culture to finalize Dictation was produced using [employer] dictation software. please excuse any grammatical, word or spelling errors. Time with Patient: Less than 30
[2023-07-17 20:47] LABS: Glucose,Whole Blood 143 mg/dL (70-110)
[2023-07-18] MEDS: ONDANSETRON 4 MG/2 ML VIAL IVP PRN ×3 (00:33→22:21)
[2023-07-18] MEDS: KETOROLAC 15 MG/ML 1 ML VIAL IVP PRN ×2 (00:33→06:27)
[2023-07-18] MEDS: methylPREDNISolone SOD SUCCI 125 MG/2 ML VIAL IV SCH ×5 (00:33→22:14)
[2023-07-18] MEDS: guaiFENesin SYRUP 100MG/5ML 200 MG/10 ML CUP PO PRN ×3 (00:34→22:37)
[2023-07-18 05:00] LABS: Mycoplasma IgG Antibody (EIA) 2.89 INDEX (<=0.90); Mycoplasma IgM Antibody 0.42 INDEX (<=0.90)
--- NOTE | 2023-07-18 05:19 | PN ---
PROGRESS NOTE DATE OF SERVICE: 07/17/2023 SUBJECTIVE: This is a 48-year-old woman with a past medical history of asthma, admitted with multifactorial pneumonia which is failure of outpatient treatment. The patient is still short of breath and had extensive cough. The patient is on broad-spectrum IV antibiotics. Pulmonary is following the patient closely. The patient will require bronchoscopy with biopsy, immunoglobins, and fungal serologies. Rest of the testing per Dr. Maynard. No chest pain, no palpitations, no fever. PAST MEDICAL HISTORY: Reviewed. REVIEW OF SYSTEMS: A 14-point review is negative except as mentioned earlier. CURRENT MEDICATIONS: DuoNeb, rest of the medications noted. PHYSICAL EXAMINATION: VITAL SIGNS: Pulse is 67, blood pressure 106/60, respirations 18. CHEST: Few scattered rhonchi and crackles. ABDOMEN: Soft. NERVOUS SYSTEM: Nonfocal. LABORATORY DATA: WBC 14.39, and hemoglobin is low also. ASSESSMENT: 1. Multifocal pneumonia with failure of outpatient treatment, possibly atypical or viral pneumonia, gram-negative bacterial pneumonia. 2. Acute asthma exacerbation. 3. Increased WBC. 4. Anemia, microcytic, undetermined etiology. 5. Elevated D-dimer without any evidence of pulmonary embolism. 6. History of asthma. 7. Gastroesophageal reflux disease. 8. Anemia. 9. History of bariatric surgery. 10.Cholecystectomy. 11.Multiple medical issues. RECOMMENDATIONS: Recommended to continue current management and continue symptomatic treatment. Repeat labs. Continue with antibiotics, continue the symptomatic treatment cough, bronchodilators, steroids. Guarded prognosis. Further recommendations to follow, see orders for details. MMODL / IJN: [id number] /
[2023-07-18] MEDS: SYMBICORT 160-4.5 MCG INHALER INHALATION SCH ×2 (08:24→19:37)
[2023-07-18] MEDS: IPRATROPIUM-ALBUTEROL 3 ML NEB INHALATION SCH ×4 (08:24→19:37)
[2023-07-18 09:35] LABS: Glucose,Whole Blood 108 mg/dL (70-110)
[2023-07-18] MEDS: PANTOPRAZOLE 40 MG/10 ML VIAL IVP SCH ×2 (09:37→22:13)
[2023-07-18] MEDS: HEPARIN SODIUM,PORCINE 5,000 UNIT/ML 1 ML VIAL SQ SCH ×2 (09:37→19:58)
[2023-07-18] MEDS: ACETAMINOPHEN TAB 325 MG TAB PO PRN (09:37)
[2023-07-18] MEDS: INSULIN ASPART (NovoLOG) 100 UNIT/ML VIAL SQ SCH ×2 (09:38→22:05)
--- NOTE | 2023-07-18 10:21 | XR ---
EXAMINATION TYPE: XR chest 1V portable DATE OF EXAM: 07/18/2023 Comparison: 07/15/2023 Clinical History: 48-year-old female pneumonia Findings: Heart upper limits of normal in size. Patchy opacities left mid and lower lung remain. Overall improv ing aeration throughout the remainder of the lungs. Impression: Improving aeration bilaterally but with residual patchy infiltrates left mid and lower lung.
[2023-07-18] MEDS ORDERED: MONTELUKAST 10 MG TAB PO SCH (14:03)
--- NOTE | 2023-07-18 14:08 | P.PN ---
Subjective Progress Note Date: 07/18/23 48-year-old female, who presented to the emergency department on July 15, complaining of shortness of breath, and cough. She not been feeling well for a couple weeks. She apparently had received some steroids and antibiotics by her primary care provider, without benefit. The patient came into the hospital, because she was not improving. She apparently does have a history of asthma, and, we did see her in the past, for pleural effusion. The patient is a nonsmoker. Her primary care provider is Dr. Israel Presley. Currently, she is on room air. She is receiving azithromycin, Rocephin, breathing treatments, and corticosteroids. Chest x-ray and CT scan shows bilateral infiltrates, left greater than right. White count 11.6, hemoglobin 9.2, hematocrit 31, platelet count 378,000. Sodium 140, potassium 4.7, chlorides 103, CO2 25, BUN 27, and creatinine 0.70. Calcium is normal. Sputum Gram stain showing both gram- positive cocci and gram-negative bacilli. Blood cultures are currently neg ative. On today's evaluation of 07/18/2023, the patient is having some shortness of breath although she is improving. This patient is suffering from recurrent pneumonias. patient for an extensive left lower lobe pneumonia back in 2015. At that time, she has also pleural effusion that was drained. Subsequently pneumonia recovered. I reviewed also the series of CAT scans and the patient had a CAT scan of the chest in 2020 that was consistent with pneumonia. The most recent CAT scan that was done during this current admission showed patchy bilateral pulmonary infiltrates. The patient is having shortness of breath and cough. She is currently on room air oxygen. The viral panel was negative. The pro-calcitonin levelIs at 0.05 and a sedimentation rate is at 24. Her previous DAVID screen was negative. Legionella urine antigen that was done on 07/15/2023 was negative. She is currently on [employer] pH is also on IV Rocephin. Sputum and blood cultures are negative. She works for [employer]. No exposure to any chemicals or fumes. Objective - Vital Signs Vital signs: Vital Signs Temp 98.0 F 07/18/23 07:00 Pulse 72 07/18/23 11:42 Resp 16 07/18/23 07:00 BP 128/91 07/18/23 07:00 Pulse Ox 93 L 07/18/23 07:00 FiO2 Intake & Output 07/17/23 07/18/23 07/18/23 18:59 06:59 18:59 Intake Total 600 Balance 600 Intake: Oral 600 Other: # Voids 2 1 # Bowel Movements 0 - Exam No acute distress, oriented 3. Currently on room air. Saturations between 94- 96%. HEENT examination is grossly unremarkable. Mucous membranes are moist. No oral lesions. Neck supple. Full range of motion. No adenopathy thyromegaly or neck vein distention. Cardiovascular examination reveals regular rhythm rate. S1-S2 normal. No S3 or S4. No discernible murmur noted. Heart rate 67 bpm. Lungs reveal scattered bilateral rhonchi. Minimal wheezes. No crackles. Breath sounds equal bilaterally. Abdomen soft bowel sounds are heard. No masses or tenderness. Extremities are intact. No cyanosis clubbing or edema. Skin is without rash or lesion. Neurologic examination is brief but nonfocal. - Labs CBC & Chem 7: 07/17/23 05:55 07/17/23 05:55 Labs: Abnormal Lab Results - Last 24 Hours (Table) 07/15/23 07/17/23 07/17/23 Range/Units 15:55 05:55 05:55 ESR 24 H (0-20) mm/Hr POC Glucose (mg/dL) (70-110) mg/dL C-Reactive Protein 5.00 H (0.00-0.80) mg/dL Mycoplasma pneumon IgG 2.89 H (<=0.90) INDEX 07/17/23 Range/Units 20:45 ESR (0-20) mm/Hr POC Glucose (mg/dL) 143 H (70-110) mg/dL C-Reactive Protein (0.00-0.80) mg/dL Mycoplasma pneumon IgG (<=0.90) INDEX Microbiology - Last 24 Hours (Table) 07/15/23 12:31 Gram Stain - Final Sputum Sputum Culture - Final 07/16/23 09:37 Gram Stain - Final Sputum Sputum Culture - Final 07/15/23 10:42 Blood Culture - Preliminary Blood 07/15/23 10:42 Blood Culture - Preliminary Blood Assessment and Plan Plan: Bilateral pneumonia, left greater than right, recurrent, rule out underlying immunodeficiency History of bronchial asthma that has been mild intermittent in nature Shortness of breath secondary to above, currently on room air oxygen History of gastroesophageal reflux disease. History of anemia. Obesity, with previous bariatric surgery. Lifelong nonsmoker. Plan: Recommend bronchoscopy and bronchial lavage to narrow down the microbial possibility causing recurrent infections Obtain total IgE levels Patient's previous MELISSA screen was negative Viral panel is negative The Legionella urine antigen is negative We'll make further recommendations based on the bronchoscopic findings. Meanwhile continue the IV Rocephin and the patient is currently on room air oxygen and she is clinically improving. Continue bronchodilators. We'll follow 1 after midnight for bronchoscopy and a BAL
[2023-07-18] MEDS: MONTELUKAST 10 MG TAB PO SCH ×2 (16:20→16:21)
[2023-07-18 20:55] LABS: Glucose,Whole Blood 127 mg/dL (70-110)
--- NOTE | 2023-07-18 22:02 | PN ---
PROGRESS NOTE DATE OF SERVICE: 07/18/2023 SUBJECTIVE: This is a 48-year-old woman, who was admitted with multifocal pneumonia, is on antibiotic. Pulmonary is following the patient closely. The most recent chest x-ray was reviewed. The patient has significant bronchospasm. OBJECTIVE: VITAL SIGNS: Pulse is 70, blood pressure is 122/80, respirations 16. CHEST: A few scattered rhonchi and crackles. ABDOMEN: Soft. NERVOUS SYSTEM: Nonfocal. LABORATORY DATA: WBC 14.9. Rest of the labs are noted. Mycoplasma IgG is positive, but otherwise, urine Legionella is negative. ASSESSMENT: 1. Multifocal pneumonia with failure of outpatient treatment, possibly atypical or viral pneumonia or gram-negative bacterial pneumonia. 2. Acute asthma exacerbation. 3. Increased WBC. 4. Anemia, microcytic, undetermined etiology. 5. Elevated D-dimer without any evidence of pulmonary embolism. 6. History of asthma. 7. Gastroesophageal reflux disease. 8. Anemia. 9. History of bariatric surgery. 10.Multiple complex medical issues. RECOMMENDATIONS: Recommend to continue current management and continue symptomatic treatment. Continue with antibiotics, steroids, and symptomatic treatment. We will add Singulair to current regimen. Further recommendations to follow. MMODL / IJN: [id number] /
[2023-07-18] MEDS: HYDROcodone/APAP 5-325MG 1 EACH TAB PO PRN (22:21)
[2023-07-19] MEDS: methylPREDNISolone SOD SUCCI 125 MG/2 ML VIAL IV SCH ×2 (05:26→13:49)
[2023-07-19 06:23] LABS: Glucose,Whole Blood 113 mg/dL (70-110)
[2023-07-19] MEDS: SYMBICORT 160-4.5 MCG INHALER INHALATION SCH ×2 (08:42→20:15)
[2023-07-19] MEDS: IPRATROPIUM-ALBUTEROL 3 ML NEB INHALATION SCH ×4 (08:42→20:15)
[2023-07-19 09:00] LABS: Basophils # (A) 0.01 X 10*3/uL (0.00-0.10); Basophils % (A) 0.1 %; Eosinophils # (A) 0 X 10*3/uL (0.04-0.35); Eosinophils % (A) 0 %; HCT 28.2 % (37.2-46.3); HGB 8.2 g/dL (12.0-15.0); Lymphocytes # (A) 0.87 X 10*3/uL (0.90-5.00); Lymphocytes % (A) 7.7 %; MCH 22.2 pg (27.0-32.0); MCHC 29.1 g/dL (32.0-37.0); MCV 76.2 FL (80.0-97.0); Mean Platelet Volume 10.4 FL (9.5-12.2); Monocytes # (A) 0.13 X 10*3/uL (0.20-1.00); Monocytes % (A) 1.2 %; NRBC Per 100 WBC 0 X 10*3/uL (0.00-0.01); Neutrophils # (A) 10.12 X 10*3/uL (1.80-7.70); Platelet Count 396 X 10*3/uL (140-440); RDW 17.4 % (11.5-14.5); WBC 11.24 X 10*3/uL (4.50-10.00)
[2023-07-19] MEDS: PANTOPRAZOLE 40 MG/10 ML VIAL IVP SCH ×2 (09:23→21:00)
[2023-07-19] MEDS: LACTATED RINGERS 1,000 ML IV SCH (09:24)
[2023-07-19] MEDS: INSULIN ASPART (NovoLOG) 100 UNIT/ML VIAL SQ SCH ×2 (09:24→21:17)
[2023-07-19] MEDS: HEPARIN SODIUM,PORCINE 5,000 UNIT/ML 1 ML VIAL SQ SCH ×2 (09:26→21:21)
[2023-07-19 10:41] LABS: BUN/Creat Ratio 39.12 Ratio (12.00-20.00); Blood Urea Nitrogen 31.3 mg/dL (9.0-27.0); Calcium 8.5 mg/dL (8.7-10.3); Carbon Dioxide 26.1 mmol/L (21.6-31.8); Chloride 107 mmol/L (96-109); Glucose 111 mg/dL (70-110); Potassium 4.9 mmol/L (3.5-5.5); Sodium 143 mmol/L (135-145)
[2023-07-19] MEDS ORDERED: IV FLUID CONTINUATION 1,000 ML IV ONE (13:07)
[2023-07-19] MEDS ORDERED: LIDOCAINE 2% INJ 20 MG/ML INTRATRACH ONE (13:14)
--- NOTE | 2023-07-19 13:26 | P.PN ---
Subjective Progress Note Date: 07/18/23 Principal diagnosis: Reason for follow-up with abnormal CT question of pneumonia Patient is a 48-year-old female with a past medical history significant for asthma reflux presenting to the ER for evaluation of shortness of breath patient mention she has been diagnosed with pneumonia about 4 weeks ago and has been treated with 3 different courses of antibiotics and steroids with minimal relief, patient did have a CT angiogram of the chest that was negative for PE did shows multifocal airspace consolidative opacity throughout the left lung and to a lesser extent the right lung admitted to hospital for pneumonia and workup. On today's evaluation that is 07/18/2023, the patient continues to be afebrile patient is breathing comfortably on room air without need for supplemental oxygen the patient denies chest pain, the patient did complain of irritating cough with occasional sputum production, no hemoptysis did have some nausea but no vomiting no abdominal pain no diarrhea Patient white count is slightly up to 14.39, creatinine 0.9 CRP 13.7 procalcitonin 0.07 as of yesterday no lab draw today, HIV testing was negative Objective - Vital Signs Vital signs: Vital Signs Temp 98.2 F 07/18/23 14:55 Pulse 75 07/18/23 15:48 Resp 16 07/18/23 14:55 BP 121/74 07/18/23 14:55 Pulse Ox 95 07/18/23 14:55 FiO2 Intake & Output 07/17/23 07/18/23 07/18/23 18:59 06:59 18:59 Intake Total 600 118 Balance 600 118 Intake: Oral 600 118 Other: # Voids 2 1 2 # Bowel Movements 0 1 - Exam GENERAL DESCRIPTION: Middle-aged female up in bed in no distress RESPIRATORY SYSTEM: Unlabored breathing , coarse breath sounds bilaterally HEART: S1 S2 regular rate and rhythm , ABDOMEN: Soft , no tenderness EXTREMITIES: No edema feet - Labs CBC & Chem 7: 07/19/23 05:58 07/19/23 05:58 Labs: Abnormal Lab Results - Last 24 Hours (Table) 07/15/23 07/17/23 07/17/23 Range/Units 15:55 05:55 05:55 ESR 24 H (0-20) mm/Hr POC Glucose (mg/dL) (70-110) mg/dL C-Reactive Protein 5.00 H (0.00-0.80) mg/dL Mycoplasma pneumon IgG 2.89 H (<=0.90) INDEX 07/17/23 Range/Units 20:45 ESR (0-20) mm/Hr POC Glucose (mg/dL) 143 H (70-110) mg/dL C-Reactive Protein (0.00-0.80) mg/dL Mycoplasma pneumon IgG (<=0.90) INDEX Microbiology - Last 24 Hours (Table) 07/15/23 12:31 Legionella Culture - Preliminary Sputum 07/15/23 12:31 Gram Stain - Final Sputum Sputum Culture - Final 07/16/23 09:37 Gram Stain - Final Sputum Sputum Culture - Final 07/15/23 10:42 Blood Culture - Preliminary Blood 07/15/23 10:42 Blood Culture - Preliminary Blood Assessment and Plan (1) Multifocal pneumonia Current Visit: Yes Status: Acute Code(s): J18.9 - PNEUMONIA, UNSPECIFIED ORGANISM SNOMED Code(s): 508754263 Plan: 1patient presented to hospital with increasing shortness of breath and cough in this patient significantly going on for about 4 weeks and has completed 3 different courses of antibiotic with evidence of multifocal infiltrate on the CT concerning for possible typical versus atypical pneumonia 2-cultures are so far negative 3-patient to continue with Rocephin and Zithromax possible plan for bronchoscopy and lavage tomorrow Dictation was produced using [employer] dictation software. please excuse any grammatical, word or spelling errors. Time with Patient: Less than 30
--- NOTE | 2023-07-19 13:27 | P.PN ---
Subjective Progress Note Date: 07/19/23 Principal diagnosis: Reason for follow-up with abnormal CT question of pneumonia Patient is a 48-year-old female with a past medical history significant for asthma reflux presenting to the ER for evaluation of shortness of breath patient mention she has been diagnosed with pneumonia about 4 weeks ago and has been treated with 3 different courses of antibiotics and steroids with minimal relief, patient did have a CT angiogram of the chest that was negative for PE did shows multifocal airspace consolidative opacity throughout the left lung and to a lesser extent the right lung admitted to hospital for pneumonia and workup. On today's evaluation that is 07/17/2023, the patient remains to be afebrile, the patient is breathing comfortably on room air and the patient denies chest pain however continue to complain of dry irritating cough, patient denies any nause a/vomiting abdominal pain or diarrhea Patient white count is down to 11.24, creatinine 0.8 blood and sputum culture has been negative so far, serology urine Legionella antigen negative, mycoplasma IgG high IgM normal Objective - Vital Signs Vital signs: Vital Signs Temp 98.2 F 07/19/23 07:35 Pulse 72 07/19/23 12:00 Resp 16 07/19/23 07:35 BP 133/86 07/19/23 07:35 Pulse Ox 94 L 07/19/23 07:35 FiO2 Intake & Output 07/18/23 07/19/23 07/19/23 18:59 06:59 18:59 Intake Total 118 Balance 118 Intake: Oral 118 Other: # Voids 3 2 # Bowel Movements 1 - Exam GENERAL DESCRIPTION: Middle-aged female up in bed in no distress RESPIRATORY SYSTEM: Unlabored breathing , coarse breath sounds bilaterally HEART: S1 S2 regular rate and rhythm , ABDOMEN: Soft , no tenderness EXTREMITIES: No edema feet - Labs CBC & Chem 7: 07/19/23 05:58 07/19/23 05:58 Labs: Abnormal Lab Results - Last 24 Hours (Table) 07/18/23 07/19/23 07/19/23 Range/Units 20:54 05:32 05:58 WBC 11.24 H (4.50-10.00) X 10*3/uL RBC 3.70 L (4.10-5.20) X 10*6/uL Hgb 8.2 L (12.0-15.0) g/dL Hct 28.2 L (37.2-46.3) % MCV 76.2 L (80.0-97.0) FL MCH 22.2 L (27.0-32.0) pg MCHC 29.1 L (32.0-37.0) g/dL RDW 17.4 H (11.5-14.5) % Immature Gran # 0.11 H (0.00-0.04) X 10*3/uL Neutrophils # 10.12 H (1.80-7.70) X 10*3/uL Lymphocytes # 0.87 L (0.90-5.00) X 10*3/uL Monocytes # 0.13 L (0.20-1.00) X 10*3/uL Eosinophils # 0 L (0.04-0.35) X 10*3/uL BUN (9.0-27.0) mg/dL BUN/Creatinine Ratio (12.00-20.00) Ratio Glucose (70-110) mg/dL POC Glucose (mg/dL) 127 H 113 H (70-110) mg/dL Calcium (8.7-10.3) mg/dL 07/19/23 Range/Units 05:58 WBC (4.50-10.00) X 10*3/uL RBC (4.10-5.20) X 10*6/uL Hgb (12.0-15.0) g/dL Hct (37.2-46.3) % MCV (80.0-97.0) FL MCH (27.0-32.0) pg MCHC (32.0-37.0) g/dL RDW (11.5-14.5) % Immature Gran # (0.00-0.04) X 10*3/uL Neutrophils # (1.80-7.70) X 10*3/uL Lymphocytes # (0.90-5.00) X 10*3/uL Monocytes # (0.20-1.00) X 10*3/uL Eosinophils # (0.04-0.35) X 10*3/uL BUN 31.3 H (9.0-27.0) mg/dL BUN/Creatinine Ratio 39.12 H (12.00-20.00) Ratio Glucose 111 H (70-110) mg/dL POC Glucose (mg/dL) (70-110) mg/dL Calcium 8.5 L (8.7-10.3) mg/dL Microbiology - Last 24 Hours (Table) 07/15/23 10:42 Blood Culture - Preliminary Blood 07/15/23 10:42 Blood Culture - Preliminary Blood 07/15/23 12:31 Legionella Culture - Preliminary Sputum 07/15/23 12:31 Gram Stain - Final Sputum Sputum Culture - Final 07/16/23 09:37 Gram Stain - Final Sputum Sputum Culture - Final Assessment and Plan (1) Multifocal pneumonia Current Visit: Yes Status: Acute Code(s): J18.9 - PNEUMONIA, UNSPECIFIED ORGANISM SNOMED Code(s): 663506642 Plan: 1patient presented to hospital with increasing shortness of breath and cough in this patient significantly going on for about 4 weeks and has completed 3 different courses of antibiotic with evidence of multifocal infiltrate on the CT concerning for possible typical versus atypical pneumonia 2-cultures are so far negative and the patient is scheduled for bronchoscopy and lavage this afternoon 3-patient to continue with Rocephin while waiting for the workup to be completed Dictation was produced using [employer] dictation software. please excuse any grammatical, word or spelling errors. Time with Patient: Less than 30
--- NOTE | 2023-07-19 14:00 | P.PN ---
Subjective Progress Note Date: 07/19/23 48-year-old female, who presented to the emergency department on July 15, complaining of shortness of breath, and cough. She not been feeling well for a couple weeks. She apparently had received some steroids and antibiotics by her primary care provider, without benefit. The patient came into the hospital, because she was not improving. She apparently does have a history of asthma, and, we did see her in the past, for pleural effusion. The patient is a nonsmoker. Her primary care provider is Dr. Israel Presley. Currently, she is on room air. She is receiving azithromycin, Rocephin, breathing treatments, and corticosteroids. Chest x-ray and CT scan shows bilateral infiltrates, left greater than right. White count 11.6, hemoglobin 9.2, hematocrit 31, platelet count 378,000. Sodium 140, potassium 4.7, chlorides 103, CO2 25, BUN 27, and creatinine 0.70. Calcium is normal. Sputum Gram stain showing both gram- positive cocci and gram-negative bacilli. Blood cultures are currently neg ative. On today's evaluation of 07/18/2023, the patient is having some shortness of breath although she is improving. This patient is suffering from recurrent pneumonias. patient for an extensive left lower lobe pneumonia back in 2015. At that time, she has also pleural effusion that was drained. Subsequently pneumonia recovered. I reviewed also the series of CAT scans and the patient had a CAT scan of the chest in 2020 that was consistent with pneumonia. The most recent CAT scan that was done during this current admission showed patchy bilateral pulmonary infiltrates. The patient is having shortness of breath and cough. She is currently on room air oxygen. The viral panel was negative. The pro-calcitonin levelIs at 0.05 and a sedimentation rate is at 24. Her previous DAVID screen was negative. Legionella urine antigen that was done on 07/15/2023 was negative. She is currently on [employer] pH is also on IV Rocephin. Sputum and blood cultures are negative. She works for [employer]. No exposure to any chemicals or fumes. On today's evaluation of 07/19/2023, the patient has no specific complaints and she continues to have some cough and shortness of breath. She is being treated for recurrent pneumonia. The plan is to do a bronchoscopy and the bronchial lavage to establish a microbial diagnosis. The patient remains on Symbicort. The patient on DuoNeb. The patient on IV Solu-Medrol. In terms of antibiotic coverage, the patient is on IV Rocephin. Note that her pro-calcitonin level was essentially within normal limits. The blood work from today shows a WBC count of 11, hemoglobin of 8.2 and a platelet count of 396. BUN is at 31 with a creatinine of 0.8 and sodium levels of 143. She is still on room air oxygen with a pulse ox of 95%. No other significant events overnight. Legionella urine antigen was negative. Sputum Gram stain and blood cultures are negative. Objective - Vital Signs Vital signs: Vital Signs Temp 98.2 F 07/19/23 07:35 Pulse 76 07/19/23 11:52 Resp 16 07/19/23 07:35 BP 133/86 07/19/23 07:35 Pulse Ox 94 L 07/19/23 07:35 FiO2 Intake & Output 07/18/23 07/19/23 07/19/23 18:59 06:59 18:59 Intake Total 118 Balance 118 Intake: Oral 118 Other: # Voids 3 2 # Bowel Movements 1 - Exam No acute distress, oriented 3. Currently on room air. Saturations between 94- 96%. HEENT examination is grossly unremarkable. Mucous membranes are moist. No oral lesions. Neck supple. Full range of motion. No adenopathy thyromegaly or neck vein distention. Cardiovascular examination reveals regular rhythm rate. S1-S2 normal. No S3 or S4. No discernible murmur noted. Heart rate 67 bpm. Lungs reveal scattered bilateral rhonchi. Minimal wheezes. No crackles. Breath sounds equal bilaterally. Abdomen soft bowel sounds are heard. No masses or tenderness. Extremities are intact. No cyanosis clubbing or edema. Skin is without rash or lesion. Neurologic examination is brief but nonfocal. - Labs CBC & Chem 7: 07/19/23 05:58 07/19/23 05:58 Labs: Abnormal Lab Results - Last 24 Hours (Table) 07/18/23 07/19/23 07/19/23 Range/Units 20:54 05:32 05:58 WBC 11.24 H (4.50-10.00) X 10*3/uL RBC 3.70 L (4.10-5.20) X 10*6/uL Hgb 8.2 L (12.0-15.0) g/dL Hct 28.2 L (37.2-46.3) % MCV 76.2 L (80.0-97.0) FL MCH 22.2 L (27.0-32.0) pg MCHC 29.1 L (32.0-37.0) g/dL RDW 17.4 H (11.5-14.5) % Immature Gran # 0.11 H (0.00-0.04) X 10*3/uL Neutrophils # 10.12 H (1.80-7.70) X 10*3/uL Lymphocytes # 0.87 L (0.90-5.00) X 10*3/uL Monocytes # 0.13 L (0.20-1.00) X 10*3/uL Eosinophils # 0 L (0.04-0.35) X 10*3/uL BUN (9.0-27.0) mg/dL BUN/Creatinine Ratio (12.00-20.00) Ratio Glucose (70-110) mg/dL POC Glucose (mg/dL) 127 H 113 H (70-110) mg/dL Calcium (8.7-10.3) mg/dL 07/19/23 Range/Units 05:58 WBC (4.50-10.00) X 10*3/uL RBC (4.10-5.20) X 10*6/uL Hgb (12.0-15.0) g/dL Hct (37.2-46.3) % MCV (80.0-97.0) FL MCH (27.0-32.0) pg MCHC (32.0-37.0) g/dL RDW (11.5-14.5) % Immature Gran # (0.00-0.04) X 10*3/uL Neutrophils # (1.80-7.70) X 10*3/uL Lymphocytes # (0.90-5.00) X 10*3/uL Monocytes # (0.20-1.00) X 10*3/uL Eosinophils # (0.04-0.35) X 10*3/uL BUN 31.3 H (9.0-27.0) mg/dL BUN/Creatinine Ratio 39.12 H (12.00-20.00) Ratio Glucose 111 H (70-110) mg/dL POC Glucose (mg/dL) (70-110) mg/dL Calcium 8.5 L (8.7-10.3) mg/dL Microbiology - Last 24 Hours (Table) 07/15/23 10:42 Blood Culture - Preliminary Blood 07/15/23 10:42 Blood Culture - Preliminary Blood 07/15/23 12:31 Legionella Culture - Preliminary Sputum 07/15/23 12:31 Gram Stain - Final Sputum Sputum Culture - Final 07/16/23 09:37 Gram Stain - Final Sputum Sputum Culture - Final Assessment and Plan Plan: Bilateral pneumonia, left greater than right, recurrent, rule out underlying immunodeficiency History of bronchial asthma that has been mild intermittent in nature Shortness of breath secondary to above, currently on room air oxygen History of gastroesophageal reflux disease. History of anemia. Obesity, with previous bariatric surgery. Lifelong nonsmoker. Plan: Clinically the same as yesterday. The patient is going to undergo a bronchoscopy and a bronchial lavage Sputum culture has been negative Blood cultures negative Legionella urine antigen is negative Viral panel was negative And he was negative Obtain total IgE levels, there is also still pending The Legionella urine antigen is negative Continue IV Rocephin Continue bronchodilators. We'll follow
--- NOTE | 2023-07-19 14:10 | P.PCN ---
Date of Procedure: 07/19/23 Preoperative Diagnosis: Multifocal pneumonia Postoperative Diagnosis: Multifocal pneumonia Procedure(s) Performed: Flexible bronchoscopy and a BAL of the lingula Anesthesia: BRANDI Surgeon: Sandor Conner Estimated Blood Loss (ml): 0 Pathology: other Condition: stable Disposition: floor Operative Findings: This is a flexible bronchoscopy that was done in the endoscopy suite. A consent was obtained. A timeout was done. This was done under conscious sedation. Anesthetic agents was administered by anesthesia/FRANCHISE MANAGER at the bedside. After achieving adequate sedation, flexible bronchoscope was inserted for the right nostril. The bronchoscope was easily passed for the posterior pharynx and later on to the larynx. Upper airway structures were all inspected and there were essentially within normal limits. Among the visualize structures were epiglottis, vallecula, arytenoids, cords and the patient normal vocal cord mobility with normal abduction and adduction. A total of 2 mL of 1% lidocaine was applied to the vocal cords and following that the bronchoscope was advanced to the upper trachea. Examination of the entire airway and bronchial tree was done. The visualized airways included the entire trachea, bilateral mainstem bronchi, right upper lobe bronchus, bronchus intermedius, right middle lobe bronchus, right lower lobe bronchus, left upper lobe bronchus, left lower lobe bronchus, the various 10 segments on the right and 8 segments on the left. Airways were patent. No suspicious lesions were noted especially on the left. There were suctioned out without any major difficulties. Following that, the bronchoscope was wedged into the superior segment of the lingula. A total of 80 mL of fluid was infused and 25 mL of saline was aspirated without any major difficulties. Aspirate was cloudy. It was nonbloody. The patient tolerated the procedure well. The patient called to some cough and. Nevertheless, there was no issues with oxygenation. The patient was transferred back to recovery and subsequently to her room without any major issues. The bronchial lavage was collected will be sent for microbial cultures and analysis.
[2023-07-19] MEDS: MONTELUKAST 10 MG TAB PO SCH (21:21)
[2023-07-19] MEDS: guaiFENesin SYRUP 100MG/5ML 200 MG/10 ML CUP PO PRN (21:25)
[2023-07-19] MEDS: HYDROcodone/APAP 5-325MG 1 EACH TAB PO PRN (21:28)
[2023-07-19 22:08] LABS: Glucose,Whole Blood 114 mg/dL (70-110)
[2023-07-19] MEDS: methylPREDNISolone SOD SUCCI 40 MG/ML 1 ML VIAL IV SCH (22:18)
[2023-07-19 23:51] LABS: Anisocytosis Slight; HCT 27.9 % (34.0-46.0); HGB 8.7 gm/dL (11.4-16.0); Hypochromasia Marked; MCH 24.1 pg (25.0-35.0); MCHC 31.1 g/dL (31.0-37.0); MCV 77.6 fL (80.0-100.0); Mean Platelet Volume 7.9; Microcytosis Slight; Platelet Count 364 k/uL (150-450); RDW 16.8 % (11.5-15.5); WBC 8.6 k/uL (3.8-10.6)
[2023-07-20 01:14] LABS: Lymphocytes # (M) 0.86 k/uL (1.0-4.8); Monocytes # (M) 0.34 k/uL (0-1.0); Neutrophils % (M) 86 %; Nucleated Red Blood Cells 0 /100 WBC (0-0); Poikilocytosis (M) Present; Total Cells Counted 100
[2023-07-20 05:08] LABS: Mycoplasma IgG Antibody (EIA) 2.05 INDEX (<=0.90); Mycoplasma IgM Antibody 0.57 INDEX (<=0.90)
[2023-07-20] MEDS: methylPREDNISolone SOD SUCCI 40 MG/ML 1 ML VIAL IV SCH ×3 (06:20→20:53)
[2023-07-20] MEDS: LACTATED RINGERS 1,000 ML IV SCH (06:22)
[2023-07-20 07:02] LABS: Glucose,Whole Blood 100 mg/dL (70-110)
--- NOTE | 2023-07-20 07:18 | P.PN ---
Subjective Progress Note Date: 07/19/23 Patient is seen and examined on the medical floor. Remains on course of IV antibiotics and IV solumedrol for bacterial pneumonia. Mycoplasma IgG was found to be positive with follow up at 2.05 still elevated but decreasing. Patient to undergo bronchoscopy today with pulmonary. She does feel less winded today. She is not wheezing. WBC 11.2, hgb 8.2. Infectious disease is following. She is hungry asking for protein drinks with atleast 1 meal. She is afebrile and on room air. Review of Systems Constitutional: Denied any fatigue denied any fever. Cardio vascular: denied any chest pain, palpitations Gastrointestinal: denied any nausea, vomiting, diarrhea Pulmonary: Denied any shortness of breath cough Neurologic denied any new focal deficits All inpatient medications were reviewed and appropriate changes in these medications as dictated in the interval history and assessment and plan. PHYSICAL EXAMINATION: GENERAL: The patient is alert and oriented x3, not in any acute distress. Well developed, well nourished. HEENT: Pupils are round and equally reacting to light. EOMI. No scleral icterus. No conjunctival pallor. Normocephalic, atraumatic. No pharyngeal erythema. No thyromegaly. CARDIOVASCULAR: S1 and S2 present. No murmurs, rubs, or gallops. PULMONARY: Chest is clear to auscultation, no wheezing or crackles. ABDOMEN: Soft, nontender, nondistended, normoactive bowel sounds. No palpable organomegaly. MUSCULOSKELETAL: No joint swelling or deformity. EXTREMITIES: No cyanosis, clubbing, or pedal edema. NEUROLOGICAL: Gross neurological examination did not reveal any focal deficits. SKIN: No rashes. Assessment and Plan -Pneumonia bacterial likely gram negative on course of IV ceftriaxone and IV solumedrol patient to undergo bronchoscopy with BAL and biopsies today. Unable to rule out viral component as well and complete viral panel has been ordered. -Acute asthma exacerbation on inhaled and systemic steroids, improving less wheezy today -Elevated D Dimer without evidence of pulmonary embolism -Gastroesophageal reflux diseease Continues on protonix -Bariatric surgery in the past -Anemia microcytic with history of anemia rule out iron deficiency GI prophylaxis DVT prophylaxis: Subcu heparin Full Code The impression and plan of care has been dictated by Eva Hearn, Nurse Practitioner as directed. Dr. Janeen MD I have performed a history and physical examination and medical decision making of this patient, discussed the same with the dictator, and agree with the dictators assessment and plan as written, documented as a scribe. Based on total visit time, I have performed more than 50% of this visit. Objective - Vital Signs Vital signs: Vital Signs Temp 98.2 F 07/19/23 07:35 Pulse 76 07/19/23 08:55 Resp 16 07/19/23 07:35 BP 133/86 07/19/23 07:35 Pulse Ox 94 L 07/19/23 07:35 FiO2 Intake & Output 07/18/23 07/19/23 07/19/23 18:59 06:59 18:59 Intake Total 118 Balance 118 Intake: Oral 118 Other: # Voids 3 2 # Bowel Movements 1 - Labs CBC & Chem 7: 07/19/23 23:40 07/19/23 05:58 Labs: Abnormal Lab Results - Last 24 Hours (Table) 07/18/23 07/19/23 07/19/23 Range/Units 20:54 05:32 05:58 WBC 11.24 H (4.50-10.00) X 10*3/uL RBC 3.70 L (4.10-5.20) X 10*6/uL Hgb 8.2 L (12.0-15.0) g/dL Hct 28.2 L (37.2-46.3) % MCV 76.2 L (80.0-97.0) FL MCH 22.2 L (27.0-32.0) pg MCHC 29.1 L (32.0-37.0) g/dL RDW 17.4 H (11.5-14.5) % Immature Gran # 0.11 H (0.00-0.04) X 10*3/uL Neutrophils # 10.12 H (1.80-7.70) X 10*3/uL Lymphocytes # 0.87 L (0.90-5.00) X 10*3/uL Monocytes # 0.13 L (0.20-1.00) X 10*3/uL Eosinophils # 0 L (0.04-0.35) X 10*3/uL BUN (9.0-27.0) mg/dL BUN/Creatinine Ratio (12.00-20.00) Ratio Glucose (70-110) mg/dL POC Glucose (mg/dL) 127 H 113 H (70-110) mg/dL Calcium (8.7-10.3) mg/dL 07/19/23 Range/Units 05:58 WBC (4.50-10.00) X 10*3/uL RBC (4.10-5.20) X 10*6/uL Hgb (12.0-15.0) g/dL Hct (37.2-46.3) % MCV (80.0-97.0) FL MCH (27.0-32.0) pg MCHC (32.0-37.0) g/dL RDW (11.5-14.5) % Immature Gran # (0.00-0.04) X 10*3/uL Neutrophils # (1.80-7.70) X 10*3/uL Lymphocytes # (0.90-5.00) X 10*3/uL Monocytes # (0.20-1.00) X 10*3/uL Eosinophils # (0.04-0.35) X 10*3/uL BUN 31.3 H (9.0-27.0) mg/dL BUN/Creatinine Ratio 39.12 H (12.00-20.00) Ratio Glucose 111 H (70-110) mg/dL POC Glucose (mg/dL) (70-110) mg/dL Calcium 8.5 L (8.7-10.3) mg/dL Microbiology - Last 24 Hours (Table) 07/15/23 10:42 Blood Culture - Preliminary Blood 07/15/23 10:42 Blood Culture - Preliminary Blood 07/15/23 12:31 Legionella Culture - Preliminary Sputum 07/15/23 12:31 Gram Stain - Final Sputum Sputum Culture - Final 07/16/23 09:37 Gram Stain - Final Sputum Sputum Culture - Final Assessment and Plan Time with Patient: Less than 30
[2023-07-20] MEDS: SYMBICORT 160-4.5 MCG INHALER INHALATION SCH ×2 (08:35→20:10)
[2023-07-20] MEDS: IPRATROPIUM-ALBUTEROL 3 ML NEB INHALATION SCH ×4 (08:35→20:10)
[2023-07-20] MEDS: INSULIN ASPART (NovoLOG) 100 UNIT/ML VIAL SQ SCH ×2 (08:47→20:53)
[2023-07-20] MEDS: HEPARIN SODIUM,PORCINE 5,000 UNIT/ML 1 ML VIAL SQ SCH ×2 (08:47→20:54)
[2023-07-20] MEDS: PANTOPRAZOLE 40 MG/10 ML VIAL IVP SCH ×2 (08:47→20:53)
[2023-07-20 11:25] LABS: % Iron Saturation 4.17 (12.00-45.00); Ferritin 48.5 ng/mL (10.0-291.0)
[2023-07-20] MEDS ORDERED: BENZOCAINE/MENTHOL LOZENG 1 EACH LOZENGE MUCOUS MEM PRN (14:14)
--- NOTE | 2023-07-20 15:26 | P.PN ---
Subjective Progress Note Date: 07/20/23 48-year-old female, who presented to the emergency department on July 15, complaining of shortness of breath, and cough. She not been feeling well for a couple weeks. She apparently had received some steroids and antibiotics by her primary care provider, without benefit. The patient came into the hospital, because she was not improving. She apparently does have a history of asthma, and, we did see her in the past, for pleural effusion. The patient is a nonsmoker. Her primary care provider is Dr. Israel Presley. Currently, she is on room air. She is receiving azithromycin, Rocephin, breathing treatments, and corticosteroids. Chest x-ray and CT scan shows bilateral infiltrates, left greater than right. White count 11.6, hemoglobin 9.2, hematocrit 31, platelet count 378,000. Sodium 140, potassium 4.7, chlorides 103, CO2 25, BUN 27, and creatinine 0.70. Calcium is normal. Sputum Gram stain showing both gram- positive cocci and gram-negative bacilli. Blood cultures are currently neg ative. On today's evaluation of 07/18/2023, the patient is having some shortness of breath although she is improving. This patient is suffering from recurrent pneumonias. patient for an extensive left lower lobe pneumonia back in 2015. At that time, she has also pleural effusion that was drained. Subsequently pneumonia recovered. I reviewed also the series of CAT scans and the patient had a CAT scan of the chest in 2020 that was consistent with pneumonia. The most recent CAT scan that was done during this current admission showed patchy bilateral pulmonary infiltrates. The patient is having shortness of breath and cough. She is currently on room air oxygen. The viral panel was negative. The pro-calcitonin levelIs at 0.05 and a sedimentation rate is at 24. Her previous DAVID screen was negative. Legionella urine antigen that was done on 07/15/2023 was negative. She is currently on [employer] pH is also on IV Rocephin. Sputum and blood cultures are negative. She works for [employer]. No exposure to any chemicals or fumes. On today's evaluation of 07/19/2023, the patient has no specific complaints and she continues to have some cough and shortness of breath. She is being treated for recurrent pneumonia. The plan is to do a bronchoscopy and the bronchial lavage to establish a microbial diagnosis. The patient remains on Symbicort. The patient on DuoNeb. The patient on IV Solu-Medrol. In terms of antibiotic coverage, the patient is on IV Rocephin. Note that her pro-calcitonin level was essentially within normal limits. The blood work from today shows a WBC count of 11, hemoglobin of 8.2 and a platelet count of 396. BUN is at 31 with a creatinine of 0.8 and sodium levels of 143. She is still on room air oxygen with a pulse ox of 95%. No other significant events overnight. Legionella urine antigen was negative. Sputum Gram stain and blood cultures are negative. On 07/20/2023, the patient remains on IV Rocephin. Bronchoscopy was done yesterday and a bronchial lavage results are still pending. No new complaints otherwise for now. He remains on bronchodilators. Remains on IV Solu-Medrol. The white cell count of 8.6 with a hemoglobin of 8.7. Those results are from from yesterday. No repeat studies. Covid 19 testing was negative. Repeat chest x-ray from today show significant improvement in the bilateral pulmonary infiltrates that were noted earlier. As such, the patient is improving and is on is improvement in the chest x-ray findings. Objective - Vital Signs Vital signs: Vital Signs Temp 98.3 F 07/20/23 07:17 Pulse 65 07/20/23 08:46 Resp 18 07/20/23 08:00 BP 125/88 07/20/23 07:17 Pulse Ox 92 L 07/20/23 08:37 FiO2 Intake & Output 07/19/23 07/20/23 07/20/23 18:59 06:59 18:59 Intake Total 490 240 Balance 490 240 Intake: IV 100 Oral 390 240 Other: # Voids 4 2 - Exam No acute distress, oriented 3. Currently on room air. Saturations between 94- 96%. HEENT examination is grossly unremarkable. Mucous membranes are moist. No oral lesions. Neck supple. Full range of motion. No adenopathy thyromegaly or neck vein distention. Cardiovascular examination reveals regular rhythm rate. S1-S2 normal. No S3 or S4. No discernible murmur noted. Heart rate 67 bpm. Lungs reveal scattered bilateral rhonchi. Minimal wheezes. No crackles. Breath sounds equal bilaterally. Abdomen soft bowel sounds are heard. No masses or tenderness. Extremities are intact. No cyanosis clubbing or edema. Skin is without rash or lesion. Neurologic examination is brief but nonfocal. - Labs CBC & Chem 7: 07/19/23 23:40 07/19/23 05:58 Labs: Abnormal Lab Results - Last 24 Hours (Table) 07/18/23 07/19/23 07/19/23 Range/Units 15:30 21:17 23:40 RBC 3.60 L (3.80-5.40) m/uL Hgb 8.7 L (11.4-16.0) gm/dL Hct 27.9 L (34.0-46.0) % MCV 77.6 L (80.0-100.0) fL MCH 24.1 L (25.0-35.0) pg RDW 16.8 H (11.5-15.5) % Lymphocytes # (Manual) 0.86 L (1.0-4.8) k/uL POC Glucose (mg/dL) 114 H (70-110) mg/dL Mycoplasma pneumon IgG 2.05 H (<=0.90) INDEX Assessment and Plan Plan: Bilateral pneumonia, left greater than right, recurrent, rule out underlying immunodeficiency, clinically improving and the patient's follow-up chest x-ray from today shows marked improvement in the bilateral pulmonary infiltrates. The patient underwent bronchoscopy and the results of the bronchial lavage are still pending. History of bronchial asthma that has been mild intermittent in nature Shortness of breath secondary to above, currently on room air oxygen History of gastroesophageal reflux disease. History of anemia. Obesity, with previous bariatric surgery. Lifelong nonsmoker. Plan: Awaiting the results of the BAL The chest x-ray showing marked improvement in bilateral pulmonary infiltrates Sputum culture has been negative Blood cultures negative Legionella urine antigen is negative Viral panel was negative And he was negative Obtain total IgE levels, there is also still pending The Legionella urine antigen is negative Continue IV Rocephin Continue bronchodilators. Continue antibiotics and possible discharge in a.m. as the patient is feeling better and the chest x-rays also improving.
--- NOTE | 2023-07-20 15:28 | XR ---
EXAMINATION TYPE: XR chest 2V DATE OF EXAM: 07/20/2023 COMPARISON: 07/18/2023 HISTORY: 48-year-old female shortness of breath, cough, congestion, recent diagnosis of pneumonia TECHNIQUE: Frontal and lateral views FINDINGS: Heart normal size. Aorta and pulmonary vasculature within normal limits. There is patchy left basilar opacity on the frontal view. Lap band device in the upper abdomen. No pleural effusion. IMPRESSION: Patchy atelectasis versus infiltrate/pneumonia at the left base.
--- NOTE | 2023-07-20 15:47 | P.PN ---
Subjective Progress Note Date: 07/20/23 Patient is seen and examined on the medical floor. Remains on course of IV antibiotics and IV solumedrol for bacterial pneumonia. Mycoplasma IgG was found to be positive with follow up at 2.05 still elevated but decreasing. Patient to undergo bronchoscopy today with pulmonary. She does feel less winded today. She is not wheezing. WBC 11.2, hgb 8.2. Infectious disease is following. She is hungry asking for protein drinks with atleast 1 meal. She is afebrile and on room air. 07/20/2023 Patient is evaluated today resting in bed. Patient underwent bronchoscopy yesterday. Washings are pending cytology. Patients daughter has tested positive for covid had respiratory symptoms the day patient came in. patient was checked for covid it has been negative x 2 now. Follow up chest xray today showing patchy atelectasis versus infiltrate/pneumonia at the left base. Remains on inhaled and systemic steroids and IV ceftriaxone. Review of Systems Constitutional: Denied any fatigue denied any fever. Cardio vascular: denied any chest pain, palpitations Gastrointestinal: denied any nausea, vomiting, diarrhea Pulmonary: Denied any shortness of breath cough Neurologic denied any new focal deficits All inpatient medications were reviewed and appropriate changes in these medications as dictated in the interval history and assessment and plan. PHYSICAL EXAMINATION: GENERAL: The patient is alert and oriented x3, not in any acute distress. Well developed, well nourished. HEENT: Pupils are round and equally reacting to light. EOMI. No scleral icterus. No conjunctival pallor. Normocephalic, atraumatic. No pharyngeal erythema. No thyromegaly. CARDIOVASCULAR: S1 and S2 present. No murmurs, rubs, or gallops. PULMONARY: Chest is clear to auscultation, no wheezing or crackles. ABDOMEN: Soft, nontender, nondistended, normoactive bowel sounds. No palpable organomegaly. MUSCULOSKELETAL: No joint swelling or deformity. EXTREMITIES: No cyanosis, clubbing, or pedal edema. NEUROLOGICAL: Gross neurological examination did not reveal any focal deficits. SKIN: No rashes. Assessment and Plan -Pneumonia bacterial likely gram negative on course of IV ceftriaxone and IV solumedrol patient underwent bronchoscopy with BAL. Unable to rule out viral component as well and complete viral panel has been ordered. -Acute asthma exacerbation on inhaled and systemic steroids, improving less wheezy today -Elevated D Dimer without evidence of pulmonary embolism -Gastroesophageal reflux diseease Continues on protonix -Bariatric surgery in the past -Anemia microcytic with history of anemia rule out iron deficiency GI prophylaxis DVT prophylaxis: Subcu heparin Full Code The impression and plan of care has been dictated by Eva Hearn, Nurse Practitioner as directed. Dr. Janeen MD I have performed a history and physical examination and medical decision making of this patient, discussed the same with the dictator, and agree with the dictators assessment and plan as written, documented as a scribe. Based on total visit time, I have performed more than 50% of this visit. Objective - Vital Signs Vital signs: Vital Signs Temp 98.3 F 07/20/23 14:00 Pulse 84 07/20/23 14:00 Resp 16 07/20/23 14:00 BP 120/82 07/20/23 14:00 Pulse Ox 97 07/20/23 14:00 FiO2 Intake & Output 07/19/23 07/20/23 07/20/23 18:59 06:59 18:59 Intake Total 490 480 Balance 490 480 Intake: IV 100 Oral 390 480 Other: # Voids 4 2 2 - Labs CBC & Chem 7: 07/19/23 23:40 07/19/23 05:58 Labs: Abnormal Lab Results - Last 24 Hours (Table) 07/18/23 07/19/23 07/19/23 Range/Units 15:30 05:58 21:17 RBC (3.80-5.40) m/uL Hgb (11.4-16.0) gm/dL Hct (34.0-46.0) % MCV (80.0-100.0) fL MCH (25.0-35.0) pg RDW (11.5-15.5) % Lymphocytes # (Manual) (1.0-4.8) k/uL POC Glucose (mg/dL) 114 H (70-110) mg/dL Iron 14 L (50-170) UG/DL % Saturation 4.17 L (12.00-45.00) Mycoplasma pneumon IgG 2.05 H (<=0.90) INDEX 07/19/23 Range/Units 23:40 RBC 3.60 L (3.80-5.40) m/uL Hgb 8.7 L (11.4-16.0) gm/dL Hct 27.9 L (34.0-46.0) % MCV 77.6 L (80.0-100.0) fL MCH 24.1 L (25.0-35.0) pg RDW 16.8 H (11.5-15.5) % Lymphocytes # (Manual) 0.86 L (1.0-4.8) k/uL POC Glucose (mg/dL) (70-110) mg/dL Iron (50-170) UG/DL % Saturation (12.00-45.00) Mycoplasma pneumon IgG (<=0.90) INDEX Microbiology - Last 24 Hours (Table) 07/18/23 17:46 Throat Culture - Preliminary Throat Assessment and Plan Time with Patient: Less than 30
[2023-07-20 17:40] LABS: Appearance,BF Cloudy (Clear); RBC, Body Fluid 330 /UL (0-2000)
--- NOTE | 2023-07-20 17:49 | P.PN ---
Subjective Progress Note Date: 07/20/23 Principal diagnosis: Reason for follow-up with abnormal CT question of pneumonia Patient is a 48-year-old female with a past medical history significant for asthma reflux presenting to the ER for evaluation of shortness of breath patient mention she has been diagnosed with pneumonia about 4 weeks ago and has been treated with 3 different courses of antibiotics and steroids with minimal relief, patient did have a CT angiogram of the chest that was negative for PE did shows multifocal airspace consolidative opacity throughout the left lung and to a lesser extent the right lung admitted to hospital for pneumonia and workup. Patient is status post bronchoscopy 07/19/2023 On today's evaluation that is 07/20/2023, the patient continues to be afebrile patient is breathing comfortably on room air, no need for supplemental oxygen, patient denies any chest pain the patient did complain of dry irritating cough some nausea but no vomiting no abdominal pain or diarrhea Patient white count is 8.6, creatinine 0.8 blood and sputum culture has been negative so far, serology urine Legionella antigen negative, mycoplasma IgG high IgM normal Objective - Vital Signs Vital signs: Vital Signs Temp 98.3 F 07/20/23 07:17 Pulse 65 07/20/23 08:46 Resp 18 07/20/23 07:17 BP 125/88 07/20/23 07:17 Pulse Ox 92 L 07/20/23 08:37 FiO2 Intake & Output 07/19/23 07/20/23 07/20/23 18:59 06:59 18:59 Intake Total 490 240 Balance 490 240 Intake: IV 100 Oral 390 240 Other: # Voids 4 2 - Exam GENERAL DESCRIPTION: Middle-aged female up in bed in no distress RESPIRATORY SYSTEM: Unlabored breathing , coarse breath sounds bilaterally HEART: S1 S2 regular rate and rhythm , ABDOMEN: Soft , no tenderness EXTREMITIES: No edema feet - Labs CBC & Chem 7: 07/19/23 23:40 07/19/23 05:58 Labs: Abnormal Lab Results - Last 24 Hours (Table) 07/18/23 07/19/23 07/19/23 Range/Units 15:30 05:58 21:17 RBC (3.80-5.40) m/uL Hgb (11.4-16.0) gm/dL Hct (34.0-46.0) % MCV (80.0-100.0) fL MCH (25.0-35.0) pg RDW (11.5-15.5) % Lymphocytes # (Manual) (1.0-4.8) k/uL BUN 31.3 H (9.0-27.0) mg/dL BUN/Creatinine Ratio 39.12 H (12.00-20.00) Ratio Glucose 111 H (70-110) mg/dL POC Glucose (mg/dL) 114 H (70-110) mg/dL Calcium 8.5 L (8.7-10.3) mg/dL Mycoplasma pneumon IgG 2.05 H (<=0.90) INDEX 07/19/23 Range/Units 23:40 RBC 3.60 L (3.80-5.40) m/uL Hgb 8.7 L (11.4-16.0) gm/dL Hct 27.9 L (34.0-46.0) % MCV 77.6 L (80.0-100.0) fL MCH 24.1 L (25.0-35.0) pg RDW 16.8 H (11.5-15.5) % Lymphocytes # (Manual) 0.86 L (1.0-4.8) k/uL BUN (9.0-27.0) mg/dL BUN/Creatinine Ratio (12.00-20.00) Ratio Glucose (70-110) mg/dL POC Glucose (mg/dL) (70-110) mg/dL Calcium (8.7-10.3) mg/dL Mycoplasma pneumon IgG (<=0.90) INDEX Assessment and Plan (1) Multifocal pneumonia Current Visit: Yes Status: Acute Code(s): J18.9 - PNEUMONIA, UNSPECIFIED ORGANISM SNOMED Code(s): 960194713 Plan: 1patient presented to hospital with increasing shortness of breath and cough in this patient significantly going on for about 4 weeks and has completed 3 diffe rent courses of antibiotic with evidence of multifocal infiltrate on the CT concerning for possible typical versus atypical pneumonia 2-cultures are so far negative and the patient is scheduled status post bronchoscopy and lavage cultures will be followed 3-patient currently covered with Rocephin while waiting for the workup to be completed and monitor clinical course closely Dictation was produced using [employer] software. please excuse any grammatical, word or spelling errors. Time with Patient: Less than 30
[2023-07-20 20:54] LABS: Glucose,Whole Blood 100 mg/dL (70-110)
[2023-07-20] MEDS: MONTELUKAST 10 MG TAB PO SCH (20:54)
[2023-07-21] MEDS: LACTATED RINGERS 1,000 ML IV SCH (02:18)
[2023-07-21] MEDS: ONDANSETRON 4 MG/2 ML VIAL IVP PRN ×2 (03:59→12:49)
[2023-07-21 05:23] VITALS: RESP 16
[2023-07-21] MEDS ORDERED: methylPREDNISolone SOD SUCCI 125 MG/2 ML VIAL IV SCH (05:50)
[2023-07-21 06:11] LABS: Glucose,Whole Blood 99 mg/dL (70-110)
[2023-07-21] MEDS: IPRATROPIUM-ALBUTEROL 3 ML NEB INHALATION SCH ×3 (07:21→15:51)
[2023-07-21] MEDS: SYMBICORT 160-4.5 MCG INHALER INHALATION SCH (07:21)
[2023-07-21] MEDS: PANTOPRAZOLE 40 MG/10 ML VIAL IVP SCH (08:46)
[2023-07-21] MEDS: HEPARIN SODIUM,PORCINE 5,000 UNIT/ML 1 ML VIAL SQ SCH (08:47)
[2023-07-21] MEDS: INSULIN ASPART (NovoLOG) 100 UNIT/ML VIAL SQ SCH (10:33)
[2023-07-21 11:25] LABS: Nucleated Cells, Body Fluid 150 /UL
[2023-07-21 13:52] VITALS: BP 131/85; TEMP 98.7
--- NOTE | 2023-07-21 14:37 | P.PN ---
Subjective Progress Note Date: 07/21/23 Principal diagnosis: Reason for follow-up with abnormal CT question of pneumonia Patient is a 48-year-old female with a past medical history significant for asthma reflux presenting to the ER for evaluation of shortness of breath patient mention she has been diagnosed with pneumonia about 4 weeks ago and has been treated with 3 different courses of antibiotics and steroids with minimal relief, patient did have a CT angiogram of the chest that was negative for PE did shows multifocal airspace consolidative opacity throughout the left lung and to a lesser extent the right lung admitted to hospital for pneumonia and workup. Patient is status post bronchoscopy 07/19/2023 On today's evaluation that is 07/21/2023 the patient denies having any fever or any chills, the patient is breathing comfortably on room air, patient denies chest pain, the patient cough is decreased in intensity mostly dry nature, the patient denies having any abdominal pain no nausea vomiting and no diarrhea Patient white count is 8.6, creatinine 0.8 as of 07/19/2023 no lab draw today blood and sputum culture has been negative so far, serology urine Legionella antigen negative, mycoplasma IgG high IgM normal Objective - Vital Signs Vital signs: Vital Signs Temp 97.6 F 07/21/23 07:54 Pulse 70 07/21/23 08:00 Resp 16 07/21/23 08:00 BP 130/73 07/21/23 07:54 Pulse Ox 97 07/21/23 07:54 FiO2 Intake & Output 07/20/23 07/21/23 07/21/23 18:59 06:59 18:59 Intake Total 720 Balance 720 Intake: Oral 720 Other: # Voids 4 3 - Exam GENERAL DESCRIPTION: Middle-aged female up in bed in no distress RESPIRATORY SYSTEM: Unlabored breathing , coarse breath sounds bilaterally HEART: S1 S2 regular rate and rhythm , ABDOMEN: Soft , no tenderness EXTREMITIES: No edema feet - Labs CBC & Chem 7: 07/19/23 23:40 07/19/23 05:58 Labs: Abnormal Lab Results - Last 24 Hours (Table) 07/19/23 07/19/23 Range/Units 05:58 13:18 Iron 14 L (50-170) UG/DL % Saturation 4.17 L (12.00-45.00) Fluid Appearance Cloudy A (Clear) Microbiology - Last 24 Hours (Table) 07/18/23 17:46 Throat Culture - Final Throat 07/15/23 10:42 Blood Culture - Final Blood 07/15/23 10:42 Blood Culture - Final Blood 07/19/23 13:18 Gram Stain - Preliminary Bronchoalviolar Lavage - Left Assessment and Plan (1) Multifocal pneumonia Current Visit: Yes Status: Acute Code(s): J18.9 - PNEUMONIA, UNSPECIFIED ORGANISM SNOMED Code(s): 028517790 Plan: 1patient presented to hospital with increasing shortness of breath and cough in this patient significantly going on for about 4 weeks and has completed 3 different courses of antibiotic with evidence of multifocal infiltrate on the CT concerning for possible typical versus atypical pneumonia 2-cultures are so far negative and the patient is status post bronchoscopy and lavage cultures currently growing Ria which is likely colonizer 3-patient currently covered with Rocephin however if the culture remains negative antibiotics can be safely discontinued Dictation was produced using [employer] dictation software. please excuse any grammatical, word or spelling errors. Time with Patient: Less than 30
[2023-07-21 16:13] VITALS: PULSE 74
--- NOTE | 2023-07-21 16:21 | P.PN ---
Subjective Progress Note Date: 07/21/23 48-year-old female, who presented to the emergency department on July 15, complaining of shortness of breath, and cough. She not been feeling well for a couple weeks. She apparently had received some steroids and antibiotics by her primary care provider, without benefit. The patient came into the hospital, because she was not improving. She apparently does have a history of asthma, and, we did see her in the past, for pleural effusion. The patient is a nonsmoker. Her primary care provider is Dr. Israel Presley. Currently, she is on room air. She is receiving azithromycin, Rocephin, breathing treatments, and corticosteroids. Chest x-ray and CT scan shows bilateral infiltrates, left greater than right. White count 11.6, hemoglobin 9.2, hematocrit 31, platelet count 378,000. Sodium 140, potassium 4.7, chlorides 103, CO2 25, BUN 27, and creatinine 0.70. Calcium is normal. Sputum Gram stain showing both gram- positive cocci and gram-negative bacilli. Blood cultures are currently neg ative. On today's evaluation of 07/18/2023, the patient is having some shortness of breath although she is improving. This patient is suffering from recurrent pneumonias. patient for an extensive left lower lobe pneumonia back in 2015. At that time, she has also pleural effusion that was drained. Subsequently pneumonia recovered. I reviewed also the series of CAT scans and the patient had a CAT scan of the chest in 2020 that was consistent with pneumonia. The most recent CAT scan that was done during this current admission showed patchy bilateral pulmonary infiltrates. The patient is having shortness of breath and cough. She is currently on room air oxygen. The viral panel was negative. The pro-calcitonin levelIs at 0.05 and a sedimentation rate is at 24. Her previous DAVID screen was negative. Legionella urine antigen that was done on 07/15/2023 was negative. She is currently on AlediaViS pH is also on IV Rocephin. Sputum and blood cultures are negative. She works for [employer]. No exposure to any chemicals or fumes. On today's evaluation of 07/19/2023, the patient has no specific complaints and she continues to have some cough and shortness of breath. She is being treated for recurrent pneumonia. The plan is to do a bronchoscopy and the bronchial lavage to establish a microbial diagnosis. The patient remains on Symbicort. The patient on DuoNeb. The patient on IV Solu-Medrol. In terms of antibiotic coverage, the patient is on IV Rocephin. Note that her pro-calcitonin level was essentially within normal limits. The blood work from today shows a WBC count of 11, hemoglobin of 8.2 and a platelet count of 396. BUN is at 31 with a creatinine of 0.8 and sodium levels of 143. She is still on room air oxygen with a pulse ox of 95%. No other significant events overnight. Legionella urine antigen was negative. Sputum Gram stain and blood cultures are negative. On 07/20/2023, the patient remains on IV Rocephin. Bronchoscopy was done yesterday and a bronchial lavage results are still pending. No new complaints otherwise for now. He remains on bronchodilators. Remains on IV Solu-Medrol. The white cell count of 8.6 with a hemoglobin of 8.7. Those results are from from yesterday. No repeat studies. Covid 19 testing was negative. Repeat chest x-ray from today show significant improvement in the bilateral pulmonary infiltrates that were noted earlier. As such, the patient is improving and is on is improvement in the chest x-ray findings. On 07/21/2023, the patient remains on room air oxygen. Bronchoscopy and the bronchial lavage has shown Ria albicans. Nevertheless, the chest x-ray is improved considerably. This is most likely an upper airway contaminant. No complaints otherwise for now. Covid 19 testing is negative. The patient is on room air oxygen. The patient can be taken off the IV Solu-Medrol and discharged home on a course of Ceftin and prednisone burst taper. Objective - Vital Signs Vital signs: Vital Signs Temp 98.7 F 07/21/23 13:48 Pulse 74 07/21/23 16:02 Resp 16 07/21/23 13:48 BP 131/85 07/21/23 13:48 Pulse Ox 96 07/21/23 13:48 FiO2 Intake & Output 07/20/23 07/21/23 07/21/23 18:59 06:59 18:59 Intake Total 720 236 Balance 720 236 Intake: Oral 720 236 Other: # Voids 4 3 - Exam No acute distress, oriented 3. Currently on room air. Saturations between 94- 96%. HEENT examination is grossly unremarkable. Mucous membranes are moist. No oral lesions. Neck supple. Full range of motion. No adenopathy thyromegaly or neck vein distention. Cardiovascular examination reveals regular rhythm rate. S1-S2 normal. No S3 or S4. No discernible murmur noted. Heart rate 67 bpm. Lungs reveal scattered bilateral rhonchi. Minimal wheezes. No crackles. Breath sounds equal bilaterally. Abdomen soft bowel sounds are heard. No masses or tenderness. Extremities are intact. No cyanosis clubbing or edema. Skin is without rash or lesion. Neurologic examination is brief but nonfocal. - Labs CBC & Chem 7: 07/19/23 23:40 07/19/23 05:58 Labs: Abnormal Lab Results - Last 24 Hours (Table) 07/19/23 Range/Units 13:18 Fluid Appearance Cloudy A (Clear) Microbiology - Last 24 Hours (Table) 07/19/23 13:18 Gram Stain - Preliminary Bronchoalviolar Lavage - Left Bronchial Washings Culture - Preliminary Ria albicans 07/18/23 17:46 Throat Culture - Final Throat 07/15/23 10:42 Blood Culture - Final Blood 07/15/23 10:42 Blood Culture - Final Blood Assessment and Plan Plan: Bilateral pneumonia, left greater than right, recurrent, rule out underlying immunodeficiency, clinically improving and the patient's follow-up chest x-ray from today shows marked improvement in the bilateral pulmonary infiltrates. The patient underwent bronchoscopy and the results of the bronchial lavage are still pending. Clinically improved and the chest x-ray showed also improvement. History of bronchial asthma that has been mild intermittent in nature Shortness of breath secondary to above, currently on room air oxygen History of gastroesophageal reflux disease. History of anemia. Obesity, with previous bariatric surgery. Lifelong nonsmoker. Plan: Bronchial lavage is negative Give the patient course of Diflucan regarding Ria and her bronchial alveolar lavage which is most likely an upper airway contaminant The chest x-ray showing marked improvement in bilateral pulmonary infiltrates Sputum culture has been negative Blood cultures negative Legionella urine antigen is negative Viral panel was negative And he was negative Obtain total IgE levels, there is also still pending The Legionella urine antigen is negative Continue IV Rocephin, this can be switched to oral antibiotics Continue bronchodilators. Possible discharge today to be followed up on outpatient basis
== END 2023-07-21 17:00 | disposition home or self-care (01) | DRG 202 ==
LOC: EC 09:17 → 6NMEDSUR 12:41 → OBSVTOIN 07-16 14:40
PROVIDERS: ADMIT Internal Medicine; ATTEND Internal Medicine
PROC: 0B9H8ZX Drainage of Lung Lingula, Via Natural or Artificial Opening Endoscopic, Diagnostic (ICD-10-PCS; 2023-07-19)
PROC: 0B9G8ZX Drainage of Left Upper Lung Lobe, Via Natural or Artificial Opening Endoscopic, Diagnostic (ICD-10-PCS; principal; 2023-07-19 07:30)
PROC: 0BD88ZX Extraction of Left Upper Lobe Bronchus, Via Natural or Artificial Opening Endoscopic, Diagnostic (ICD-10-PCS; 2023-07-19 07:30)
DX: J45.901 Unspecified asthma with (acute) exacerbation (principal); J15.69 Pneumonia due to other Gram-negative bacteria; D84.9 Immunodeficiency, unspecified; K21.9 Gastro-esophageal reflux disease without esophagitis; E66.9 Obesity, unspecified; D50.9 Iron deficiency anemia, unspecified; J30.81 Allergic rhinitis due to animal (cat) (dog) hair and dander; Z68.35 Body mass index [BMI] 35.0-35.9, adult; Z98.84 Bariatric surgery status; Z87.01 Personal history of pneumonia (recurrent); Z87.09 Personal history of other diseases of the respiratory system; Z90.49 Acquired absence of other specified parts of digestive tract; Z90.710 Acquired absence of both cervix and uterus; Z11.52 Encounter for screening for COVID-19; Z79.899 Other long term (current) drug therapy; Z91.040 Latex allergy status
CPT/HCPCS: 31624; 31645; 36415; 71045; 71046; 71275; 80048; 80053; 82728; 83036; 83540; 83550; 83605; 84145; 84484; 85025; 85379; 85610; 85652; 85730; 86038; 86140; 86738; 87040; 87070; 87102; 87116; 87205; 87206; 87390; 87449; 87635; 87636; 88108; 88305; 89050; 93005; 94640; 94760; 96365; 96366; 96367; 96375; 99285

== ENCOUNTER 2023-07-23 13:51 | Emergency (ER) | payer OTHER ==
--- NOTE | 2023-07-23 15:40 | ED ---
Allergic Reaction HPI - General Chief complaint: Allergic Reaction Stated complaint: L side of face is swelling Time Seen by Provider: 07/23/23 15:17 Source: patient, RN notes reviewed, old records reviewed Mode of arrival: ambulatory Limitations: no limitations - History of Present Illness Initial Comments: This is a 48-year-old female to the ER for evaluation of possible significant ALLERGIC Reaction facial swelling. Patient will continue his insulin of the left side of her face or neck left arm sore throat with hoarse voice. Patient has a recent prolonged hospitalization were patient did have a bronchoscopy with washout and she states his symptoms have been present since, patient awoke with worsening symptoms today MD Complaint: allergic reaction, facial swelling -: days(s) Symptoms: facial swelling, lip swelling, difficulty swallowing Severity: moderate Treatment Prior to Arrival: none Previous Allergy History: none - Related Data Home Medications Medication Instructions Recorded Confirmed Albuterol Sulfate [Albuterol 2 puff PO RT-Q6H PRN 07/15/23 07/15/23 Sulfate Hfa] Ipratropium-Albuterol Nebulize 3 ml INHALATION RT-TID 07/15/23 07/15/23 [Duoneb 0.5 mg-3 mg/3 ml Soln] predniSONE See Taper PO DAILY 07/15/23 07/15/23 Previous Rx's Medication Instructions Recorded Budesonide/Formoterol Fumarate 1 puff INHALATION BID #1 each 07/21/23 [Budesonide-Formoterol 160-4.5] Fluconazole [Diflucan] 100 mg PO DAILY 7 Days #7 tablet 07/21/23 Montelukast [Singulair] 10 mg PO HS #30 tab 07/21/23 guaiFENesin SYRUP 100MG/5ML 200 mg PO Q6HR PRN #0 ml 07/21/23 [Robitussin] Allergies Allergy/AdvReac Type Severity Reaction Status Date / Time cat dander Allergy Unknown Verified 07/15/23 10:35 feathers Allergy Unknown Verified 07/15/23 10:35 latex Allergy Rash/Hives Verified 07/15/23 10:35 strawberry Allergy Rash/Hives Verified 07/15/23 10:35 Review of Systems ROS Statement: Those systems with pertinent positive or pertinent negative responses have been documented in the HPI. ROS Other: All systems not noted in ROS Statement are negative. Past Medical History Past Medical History: Asthma, Blood Disorder, GERD/Reflux, Pneumonia Additional Past Medical History / Comment(s): Childhood asthma. Anemia, resolved for the last year. Pneumonia 2 yrs ago.pneumonia History of Any Multi-Drug Resistant Organisms: None Reported Past Surgical History: Bariatric Surgery, Cholecystectomy, Hysterectomy Additional Past Surgical History / Comment(s): Lap band, oopherectomy. Past Anesthesia/Blood Transfusion Reactions: No Reported Reaction Additional Past Anesthesia/Blood Transfusion Reaction / Comment(s): Family hx unknown, pt adopted. Past Psychological History: No Psychological Hx Reported Smoking Status: Never smoker Past Alcohol Use History: Occasional Past Drug Use History: None Reported - Past Family History Father Family Medical History: Unable to Obtain Additional Family Medical History / Comment(s): Patient was adopted. General Exam - General Exam Comments Initial Comments: No stridor noted on exam Limitations: no limitations General appearance: alert, in no apparent distress, anxious Head exam: Present: atraumatic, normocephalic, normal inspection Eye exam: Present: normal appearance, PERRL, EOMI. Absent: scleral icterus, co njunctival injection, periorbital swelling ENT exam: Present: normal exam, mucous membranes moist Neck exam: Present: normal inspection. Absent: tenderness, meningismus, lymphadenopathy Respiratory exam: Present: normal lung sounds bilaterally. Absent: respiratory distress, wheezes, rales, rhonchi, stridor Cardiovascular Exam: Present: regular rate, normal rhythm, normal heart sounds. Absent: systolic murmur, diastolic murmur, rubs, gallop, clicks GI/Abdominal exam: Present: soft, normal bowel sounds. Absent: distended, tenderness, guarding, rebound, rigid Extremities exam: Present: normal inspection, full ROM, normal capillary refill. Absent: tenderness, pedal edema, joint swelling, calf tenderness Back exam: Present: normal inspection Neurological exam: Present: alert, oriented X3, CN II-XII intact Psychiatric exam: Present: normal affect, normal mood Skin exam: Present: warm, dry, intact, normal color. Absent: rash Course Vital Signs 07/23/23 07/23/23 07/23/23 13:57 17:22 18:55 Temperature 99 F 98.1 F Pulse Rate 110 H 80 95 Respiratory 20 18 20 Rate Blood Pressure 118/62 111/70 101/83 O2 Sat by Pulse 96 98 97 Oximetry - Reevaluation(s) Reevaluation #1: 07/23/23 15:45 Medical records reviewed Reevaluation #2: 07/23/23 15:45 Patient symptoms are unchanged mildly improving and has been improving since she left her house Reevaluation #3: 07/23/23 15:45 Patient informed results questions answered Reevaluation #4: 07/23/23 15:44 Was pt. sent in by a medical professional or institution (, [facility], RESIDENTIAL CARE OFFICER, urgent care, hospital, or correction...) When possible be specific @ -no Did you speak to anyone other than the patient for history (EMS, parent, family, police, friend...)? What history was obtained from this source @ -no Did you review nursing and triage notes (agree or disagree)? Why? @ -agree Are old charts reviewed (outside hosp., previous admission, EMS record, old EKG, old radiological studies, urgent care reports/EKG's, correction records)? Report findings @ -yes Differential Diagnosis (chest pain, altered mental status, abdominal pain women, abdominal pain men, vaginal bleeding, weakness, fever, dyspnea, syncope, headache, dizziness, GI bleed, back pain, seizure, CVA, palpatations, mental health, musculoskeletal)? @ -prior EKG interpreted by me (3pts min.). @ -no X-rays interpreted by me (1pt min.). @ -yes negative for acute disease CT interpreted by me (1pt min.). @ -no U/S interpreted by me (1pt. min.). @ -no What testing was considered but not performed or refused? (CT, X-rays, U/S, la bs)? Why? @ -none What meds were considered but not given or refused? Why? @ -none Did you discuss the management of the patient with other professionals (professionals i.e. [facility] Ko, RESIDENTIAL CARE OFFICER, lab, RT, psych nurse, neonatal social worker, prospecting observer, teacher, nursing officer, medical case worker)? Give summary @ -no Was smoking cessation discussed for >3mins.? @ -no Were there social determinants of health that impacted care today? How? (Homelessness, low income, unemployed, alcoholism, drug addiction, transportation, low edu. Level, literacy, decrease access to med. care, longterm, rehab)? @ -none Was there de-escalation of care discussed even if they declined (Discuss DNR or withdrawal of care, Hospice)? DNR status @ -no What co-morbidities impacted this encounter? (DM, HTN, Smoking, COPD, CAD, Cancer, CVA, ARF, Chemo, Hep., AIDS, mental health diagnosis, sleep apnea, morbid obesity)? @ -none Was patient admitted / discharged? Hospital course, mention meds given and route, prescriptions, significant lab abnormalities, going to OR and other pertinent info. @ - 48 female to ER for evaluation, patient was found to have a significant allergic reaction prior to arrival which is resolved here in the emergency department, she currently feels well with no shortness of breath, patient can be discharged home Discharge Was critical care preformed (if so, how long)? @ -no Undiagnosed new problem with uncertain prognosis? @ -no Drug Therapy requiring intensive monitoring for toxicity (Heparin, Nitro, Insulin, Cardizem)? @ -no Were any procedures done? @ -no Diagnosis/symptom? @ -Acute allergic reaction Acute, or Chronic, or Acute on Chronic? @ -Acute Uncomplicated (without systemic symptoms) or Complicated (systemic symptoms)? @ -Complicated Side effects of treatment? @ -no Exacerbation, Progression, or Severe Exacerbation? @ -exacerbation Poses a threat to life or bodily function? How? (Chest pain, USA, DC, pneumonia, PE, COPD, DKA, ARF, appy, cholecystitis, CVA, Diverticulitis, Homicidal, Suicidal, threat to staff... and all critical care pts) @ -yes with possibility of anaphylaxis Medical Decision Making - Medical Decision Making 48 female to ER for evaluation, patient was found to have a significant allergic reaction prior to arrival which is resolved here in the emergency department, she currently feels well with no shortness of breath, patient can be discharged home - Lab Data Lab Results 07/23/23 07/23/23 Range/Units 16:49 16:49 Influenza Type A (PCR) Not Detected (Not Detectd) Influenza Type B (PCR) Not Detected (Not Detectd) RSV (PCR) Not Detected (Not Detectd) SARS-CoV-2 (PCR) Not Detected (Not Detectd) Group A Strep (PCR) NOT DETECTED (Not Detectd) - Radiology Data Radiology results: report reviewed (Chest x-ray x-ray soft tissue neck is negative for acute disease), image reviewed Disposition Clinical Impression: Allergic reaction Disposition: HOME SELF-CARE Condition: Good Instructions (If sedation given, give patient instructions): Edema (ED) Is patient prescribed a controlled substance at d/c from ED?: No Referrals: Israel Presley MD [Primary Care Provider] - 1-2 days Time of Disposition: 17:25
--- NOTE | 2023-07-23 16:51 | XR ---
EXAMINATION TYPE: XR chest 1V DATE OF EXAM: 07/23/2023 COMPARISON: 07/20/2023 HISTORY: Chest pain TECHNIQUE: Single frontal view of the chest is obtained. FINDINGS: Persistent patchy infiltrate adjacent to the left heart border essentially unchanged from prior study . Correlate for underlying pneumonia. The cardiac silhouette size is within normal limits. The osseous structures are intact. IMPRESSION: 1. Persistent patchy infiltrate adjacent to the left heart border essentially unchanged from prior s tudy. Correlate for underlying pneumonia.
--- NOTE | 2023-07-23 16:52 | XR ---
EXAMINATION TYPE: XR soft tissue neck DATE OF EXAM: 07/23/2023 COMPARISON: NONE HISTORY: Pain TECHNIQUE: 2 views of the soft tissues of the neck are submitted. FINDINGS: The airway is patent. Normal appearing epiglottis. Retropharyngeal soft tissues are withi n normal limits. No evidence for radiopaque foreign body. IMPRESSION: Negative study
[2023-07-23 17:34] VITALS: TEMP 98.1
[2023-07-23 19:23] VITALS: BP 101/83; PULSE 95; RESP 20
== END 2023-07-23 18:55 | disposition home or self-care (01) ==
LOC: EC 13:51
DX: T78.40XA Allergy, unspecified, initial encounter (principal); J45.909 Unspecified asthma, uncomplicated; Z20.822 Contact with and (suspected) exposure to COVID-19; Z79.52 Long term (current) use of systemic steroids; Z79.899 Other long term (current) drug therapy; Z91.040 Latex allergy status; Z91.018 Allergy to other foods; Z91.09 Other allergy status, other than to drugs and biological substances
CPT/HCPCS: 70360; 71045; 87636; 87651; 99284

== ENCOUNTER → 2023-08-01 | Outpatient (CLI) | payer OTHER ==
[2023-08-02 13:05] LABS: IgG Subclass 1 466.1 mg/dL (382.40-928.60); IgG Subclass 2 163.8 mg/dL (241.80-700.30); IgG Subclass 3 39.2 mg/dL (21.82-176.00)
== END | disposition home or self-care (01) ==
LOC: LABWHC1 09:47
PROVIDERS: ATTEND Internal Medicine Critical Care Medicine
DX: J18.9 Pneumonia, unspecified organism (principal)
CPT/HCPCS: 36415; 82787

== ENCOUNTER 2023-09-08 10:20 | Emergency (ER) | payer OTHER ==
--- NOTE | 2023-09-08 11:14 | ED ---
ENT HPI - General Chief complaint: ENT Stated complaint: Sore Throat Time Seen by Provider: 09/08/23 10:30 Source: patient, RN notes reviewed Mode of arrival: ambulatory Limitations: no limitations - History of Present Illness Initial comments: This is a 48-year-old female who presents to the emergency department for concerns of something in her throat and nose. Since April 2023 she has been treated for pneumonia. She followed up with Dr. Conner recently was told that her x-ray was clear. She has since had congestion, and states that it is dif ficult to breathe out of her nose. She started to feel like there is something behind her left nostril and in her throat. States that when she looked in the mirror this morning she felt like she saw something dangling from the roof of her mouth, which concerned her. However, she is not currently having a sore throat. Denies any difficulty speaking or swallowing. She does have a follow up appointment with Dr. Dent tomorrow. - Related Data Home Medications Medication Instructions Recorded Confirmed Albuterol Sulfate [Albuterol 2 puff PO RT-Q6H PRN 07/15/23 09/08/23 Sulfate Hfa] Ipratropium-Albuterol Nebulize 3 ml INHALATION RT-TID 07/15/23 09/08/23 [Duoneb 0.5 mg-3 mg/3 ml Soln] predniSONE See Taper PO DAILY 07/15/23 09/08/23 Previous Rx's Medication Instructions Recorded Budesonide/Formoterol Fumarate 1 puff INHALATION BID #1 each 07/21/23 [Budesonide-Formoterol 160-4.5] Fluconazole [Diflucan] 100 mg PO DAILY 7 Days #7 tablet 07/21/23 Montelukast [Singulair] 10 mg PO HS #30 tab 07/21/23 guaiFENesin SYRUP 100MG/5ML 200 mg PO Q6HR PRN #0 ml 07/21/23 [Robitussin] Allergies Allergy/AdvReac Type Severity Reaction Status Date / Time cat dander Allergy Unknown Verified 09/08/23 12:13 feathers Allergy Unknown Verified 09/08/23 12:13 latex Allergy Rash/Hives Verified 09/08/23 12:13 strawberry Allergy Rash/Hives Verified 09/08/23 12:13 Review of Systems ROS Statement: Those systems with pertinent positive or pertinent negative responses have been documented in the HPI. ROS Other: All systems not noted in ROS Statement are negative. Past Medical History Past Medical History: Asthma, Blood Disorder, GERD/Reflux, Pneumonia Additional Past Medical History / Comment(s): Childhood asthma. Anemia, resolved for the last year. Pneumonia 2 yrs ago.pneumonia History of Any Multi-Drug Resistant Organisms: None Reported Past Surgical History: Bariatric Surgery, Cholecystectomy, Hysterectomy Additional Past Surgical History / Comment(s): Lap band, oopherectomy. Past Anesthesia/Blood Transfusion Reactions: No Reported Reaction Additional Past Anesthesia/Blood Transfusion Reaction / Comment(s): Family hx unknown, pt adopted. Past Psychological History: No Psychological Hx Reported Smoking Status: Never smoker Past Alcohol Use History: Occasional Past Drug Use History: None Reported - Past Family History Father Family Medical History: Unable to Obtain Additional Family Medical History / Comment(s): Patient was adopted. General Exam Limitations: no limitations General appearance: alert, in no apparent distress Head exam: Present: atraumatic, normocephalic, normal inspection ENT exam: Present: normal oropharynx, mucous membranes moist, TM's normal bilaterally, normal external ear exam Respiratory exam: Present: normal lung sounds bilaterally. Absent: respiratory distress, wheezes, rales, rhonchi, stridor Cardiovascular Exam: Present: regular rate, normal rhythm, normal heart sounds. Absent: systolic murmur, diastolic murmur, rubs, gallop, clicks Neurological exam: Present: alert, oriented X3, CN II-XII intact Psychiatric exam: Present: normal affect, normal mood Skin exam: Present: warm, dry, intact, normal color. Absent: rash Course Vital Signs 09/08/23 10:21 Temperature 97.6 F Pulse Rate 125 H Respiratory 18 Rate Blood Pressure 132/84 O2 Sat by Pulse 97 Oximetry Medical Decision Making - Medical Decision Making This is a 48 year old female who presents to the emergency department for an abnormal sensation in her throat. Was pt. sent in by a medical professional or institution? @ -No Did you speak to anyone other than the patient for history? @ -No Did you review nursing and triage notes? @ -Yes, and I agree, it is accurate with regards to the patient's symptoms. Were old charts reviewed? @ -No Differential Diagnosis? @ -Differential Abnormal Throat Sensation: GERD, strep throat, viral illness, foreign body, this is not meant to be an all- inclusive list. EKG interpreted by me (3pts min.)? @ -Not obtained X-rays interpreted by me (1pt min.)? @ -Not obtained CT interpreted by me (1pt min.)? @ -Not obtained U/S interpreted by me (1pt. min.)? @ -Not obtained What testing was considered but not performed? (CT, X-rays, U/S, labs)? Why? @ -None What meds were considered but not given? Why? @ -None Did you discuss the management of the patient with other professionals? @ -No Did you reconcile home meds? @ -No Was smoking cessation discussed for >3mins.? @ -No Was critical care preformed (if so, how long)? @ -No Were there social determinants of health that impacted care today? How? (Homelessness, low income, unemployed, alcoholism, drug addiction, transportation, low edu. Level, literacy, decrease access to med. care, [facility], rehab)? @ -No Was there de-escalation of care discussed even if they declined? (Discuss DNR or withdrawal of care, Hospice)? @ -No What co-morbidities impacted this encounter? (DM, HTN, Smoking, COPD, CAD, Cancer, CVA, Hep., AIDS, mental health diagnosis, sleep apnea, morbid obesity)? @ -GERD, asthma Was patient admitted / discharged? @ -Discharged. Physical examination demonstrates no abnormalities in the throat, nose, or ears as described earlier by the patient. COVID, influenza, and RSV testing were negative. Rapid strep test negative. Patient discharged home in stable condition and will follow up with ENT as scheduled tomorrow. Undiagnosed new problem with uncertain prognosis? @ -None Drug Therapy requiring intensive monitoring for toxicity (Heparin, Nitro, Insulin, Cardizem)? @ -None Were any procedures done? @ -None Diagnosis/symptom? @ -Foreign body sensation in throat Acute, or Chronic, or Acute on Chronic? @ -Acute Uncomplicated (without systemic symptoms) or Complicated (systemic symptoms)? @ -Uncomplicated Side effects of treatment? @ -None Exacerbation, Progression, or Severe Exacerbation] @ -Not applicable Poses a threat to life or bodily function? @ -No Return precautions reviewed in depth, the patient is instructed to return to the emergency department with any new, worsening, or concerning symptoms. Patient verbalized understanding. This case was discussed in detail with the attending ED physician, Dr. Bennett. Presentation, findings, and treatment plan discussed in detail as well. - Lab Data Lab Results 09/08/23 09/08/23 Range/Units 10:55 10:55 Influenza Type A (PCR) Not Detected (Not Detectd) Influenza Type B (PCR) Not Detected (Not Detectd) RSV (PCR) Not Detected (Not Detectd) SARS-CoV-2 (PCR) Not Detected (Not Detectd) Group A Strep (PCR) NOT DETECTED (Not Detectd) Disposition Clinical Impression: Foreign body sensation, throat Disposition: HOME SELF-CARE Additional Instructions: Return to the emergency department with any new, worsening, or concerning symptoms. We will contact you if any of the testing is positive. Follow up with Dr. Dent tomorrow as scheduled. Is patient prescribed a controlled substance at d/c from ED?: No Referrals: Israel Presley MD [Primary Care Provider] - 1-2 days
[2023-09-08 11:20] VITALS: BP 132/84; PULSE 125; RESP 18; TEMP 97.6
== END 2023-09-08 11:36 | disposition home or self-care (01) ==
LOC: EC 10:20
DX: T17.208A Unspecified foreign body in pharynx causing other injury, initial encounter (principal); J45.909 Unspecified asthma, uncomplicated; Z79.899 Other long term (current) drug therapy; Z91.018 Allergy to other foods; Z91.040 Latex allergy status; Z88.8 Allergy status to other drugs, medicaments and biological substances; Z20.822 Contact with and (suspected) exposure to COVID-19
CPT/HCPCS: 87636; 87651; 99283

== ENCOUNTER → 2023-09-13 | Outpatient (CLI) | payer OTHER ==
--- NOTE | 2023-09-13 22:33 | CT ---
EXAMINATION TYPE: CT sinus wo con DATE OF EXAM: 09/13/2023 COMPARISON: None. HISTORY: Chronic maxillary sinusitis, LT side polyp/tumor CT DLP: 498 mGycm. Automated Exposure Control for Dose Reduction was Utilized. TECHNIQUE: CT scan of the sinuses is performed without contrast, axial images are obtained, coronal r eformatted images are also reviewed. FINDINGS: Heterogeneous near complete opacification of the left maxillary sinus could reflect large p olyp or mucous retention cyst extending into the maxillary antrum. No bony destruction is seen. Remai nder the paranasal sinuses are clear without suspicious opacification or air-fluid levels The ostiome atal complex is patent on the right. Visualized portion of mastoid air cells show no abnormal opacification. The globes are intact bilate rally. IMPRESSION: Heterogeneous hyperdensity filling nearly entire left maxillary sinus without bony destru ction. Consider direct visualization if felt clinically warranted. Remainder of the paranasal sinuse s are clear.
== END | disposition home or self-care (01) ==
LOC: RADCTMAIN 09:30
PROVIDERS: ATTEND Otolaryngology
DX: J34.89 Other specified disorders of nose and nasal sinuses (principal); J32.0 Chronic maxillary sinusitis; J33.8 Other polyp of sinus
CPT/HCPCS: 70486

== ENCOUNTER → 2023-09-21 | Day surgery (SDC) | payer OTHER ==
[2023-09-19 09:26] VITALS: BMI 37.8
[~2023-09-21] MED LIST changes: -BAMLANIVIMAB (EUA) 700 MG, ETESEVIMAB (EUA) 1,400 MG in SODIUM CHLORIDE 0.9% 100 ML IVPB ONE; +HYDROcodone/APAP 5-325MG 1 EACH TAB ONE; +MIDAZOLAM 2 MG/2 ML VIAL ONE; +ONDANSETRON 4 MG/2 ML VIAL ONE; +OXYMETAZOLINE 0.05% NASL SPRAY 1 SPRAY BOTTLE ONE; +PROPOFOL 10 MG/ML 20 ML VIAL IV ONE; -SODIUM CHLORIDE 0.9% 50 ML IVPB ONE; -SODIUM CHLORIDE 0.9% 500 ML 500 ML in EMPTY BAG 1 BAG IV PRN; +SUCCINYLCHOLINE CHLORIDE 200 MG/10 ML VIAL IV ONE; +fentaNYL (PF) 50 MCG/ML 2 ML AMP ONE
[2023-09-21] MEDS: FAMOTIDINE 20 MG/2 ML VIAL IV PRN (10:16)
[2023-09-21] MEDS: ONDANSETRON 4 MG/2 ML VIAL IVP PRN (10:17)
[2023-09-21] MEDS: OXYMETAZOLINE 0.05% NASL SPRAY 1 SPRAY BOTTLE EA NOSTRIL PRN (10:20)
[2023-09-21 10:29] LABS: Glucose,Whole Blood 83 mg/dL (70-110)
[2023-09-21] MEDS: LIDOCAINE 2%-EPI 1:100,000 20 ML VIAL SUBMUCOSAL ONE (11:26)
[2023-09-21] MEDS: LACTATED RINGERS 1,000 ML IV ONE (11:45)
[2023-09-21] MEDS: BACITRACIN 50,000 UNIT VIAL TOPICAL ONE ×2 (11:50→12:24)
--- NOTE | 2023-09-21 12:28 | P.OP ---
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 She was noted to have a large polyp in the left nasal cavity and back into the nasopharynx obstructing the nasopharynx and in fact polyp visualized just below the soft palate orally. She also has deviated nasal septum on physical exam. CT was consistent with a left antral choanal polyp Operative Findings: Nasal septum deviated to the left with a large left antrochoanal polyp emanating from the left maxillary sinus lateral aspect removed grossly entirely. The polyp came out of the left maxillary sinus and coursed posteriorly into the nasopharynx which it filled. The polyps itself was overall approximate 8 cm Description of Procedure: The patient was brought into the operative suite and placed in a supine position. The patient underwent induction of general anesthesia with oral endotracheal intubation without difficulty. The patient was prepped and draped in the usual aseptic fashion with the orbits in the operating field for monitoring to the case and the computed tomography scan was on the computer screen for review throughout the case. 1% lidocaine with 1 :100,000 epinephrine was infused submucosally into both si cruz of the nasal septum as well as the lateral nasal wall and anterior tip of the left middle turbinate A left hemitransfixion incision was then made with the mucoperichondrial and mucoperiosteal flap on the left elevated. The bony cartilaginous junction was disarticulated and the mucoperiosteal flap on the right was elevated. Bony nasal septal deformities were removed with Zhane forceps and an inferior cartilaginous strip was removed leaving a full 1.5 cm caudal strut. Checking intranasally this corrected the nasoseptal deformities and the hemitransfixion incision was closed with a running 4-0 chromic suture. Full 0 endoscopic examination is performed bilaterally. Beginning on the left, the middle turbinate was medialized. The maxillary ostium was located with a ballpoint probe and an infundibulotomy was performed followed by uncinectomy. The maxillary antrostomy was enlarged at the expense of the anterior and posterior fontanelle taking care anteriorly not to injure the l acrimal bone. The maxillary sinus was evaluated with 30 and 70 endoscope .[Abnormal appearing tissue was removed from the maxillary sinus]. The polyp was removed from the maxillary sinus as well as the nasal cavities and nasopharynx grossly entirely. The maxillary sinus was evaluated with the 30 endoscope and 70 g scalp and the base of the polyp was removed with giraffe forceps. [Nasopore nasal dressing was placed in the middle meatus on the left under direct visualization]. Bilateral Alexander airway splints coated with bacitracin ointment were placed and sutured transseptally with a 4-0 nylon suture. The patient was suctioned in oral gastric fashion and was allowed to emerge from general anesthesia having tolerated procedure well and was extubated in the operating suite and transferred to the postoperative recovery area in satisfactory condition.
[2023-09-21 12:49] VITALS: TEMP 97.6
[2023-09-21] MEDS: HYDROmorphone 0.5 MG/0.5 ML SYRINGE IVP ONE ×2 (12:50→13:00)
[2023-09-21 13:59] VITALS: RESP 20
[2023-09-21] MEDS: HYDROcodone/APAP 5-325MG 1 EACH TAB PO ONE (14:30)
[2023-09-21 14:35] VITALS: BP 116/81; PULSE 56
== END | disposition home or self-care (01) ==
LOC: OR 09:51
PROVIDERS: ATTEND Otolaryngology
DX: J33.9 Nasal polyp, unspecified (principal); J34.2 Deviated nasal septum; J33.0 Polyp of nasal cavity; J33.8 Other polyp of sinus; J34.89 Other specified disorders of nose and nasal sinuses; J32.0 Chronic maxillary sinusitis; K21.9 Gastro-esophageal reflux disease without esophagitis; Z91.040 Latex allergy status; Z79.899 Other long term (current) drug therapy
CPT/HCPCS: 31267; 30520; 88304; 88300; J2250; J0330; J0690; J2405; J3010; J3490; J2704; J1170

== ENCOUNTER 2023-10-11 10:45 | Day surgery (SDC) | payer OTHER ==
[2023-10-06 12:21] VITALS: BMI 38.6
[2023-10-11] MEDS: LACTATED RINGERS 1,000 ML IV SCH (11:17)
[2023-10-11] MEDS: ONDANSETRON 4 MG/2 ML VIAL ONE (11:27)
[2023-10-11 11:30] LABS: Glucose,Whole Blood 86 mg/dL (70-110)
[2023-10-11] MEDS ORDERED: fentaNYL (PF) 50 MCG/ML 2 ML AMP ONE (11:36)
[2023-10-11] MEDS ORDERED: MIDAZOLAM 2 MG/2 ML VIAL ONE (11:36)
[2023-10-11] MEDS ORDERED: PROPOFOL 10 MG/ML 20 ML VIAL IV ONE (11:36)
--- NOTE | 2023-10-11 11:42 | P.GSHP ---
History of Present Illness H&P Date: 10/11/23 Chief Complaint: Anemia, colon cancer screening 48-year-old female here today for upper and lower endoscopy. Patient with history of previous Lap-Band placement. Thinks she may have 8 cc in her band. Has not been touched in years. Has reflux symptoms if she eats too late. Last upper and lower endoscopy 8 years ago. Only mild gastritis seen. No rectal bleeding. Cologuard done last fall was normal. Past Medical History Past Medical History: Asthma, Blood Disorder, GERD/Reflux Additional Past Medical History / Comment(s): Childhood asthma. Anemia, SEASONAL ALLERGIES, History of Any Multi-Drug Resistant Organisms: None Reported Past Surgical History: Bariatric Surgery, Cholecystectomy, Hysterectomy Additional Past Surgical History / Comment(s): Lap band, oopherectomy., EGD, COLONOSCOPY, BRONCHIAL WASH 07/2023, LT NASAL TUMOR REMOVED Past Anesthesia/Blood Transfusion Reactions: No Reported Reaction Additional Past Anesthesia/Blood Transfusion Reaction / Comment(s): Family hx unknown, pt adopted. Smoking Status: Never smoker - Past Family History Father Family Medical History: Unable to Obtain Additional Family Medical History / Comment(s): Patient was adopted. Medications and Allergies Home Medications Medication Instructions Recorded Confirmed Type No Known Home Medications 10/11/23 10/11/23 History Allergies Allergy/AdvReac Type Severity Reaction Status Date / Time cat dander Allergy Dyspnea Verified 10/11/23 11:18 feathers Allergy Dyspnea Verified 10/11/23 11:18 latex Allergy Rash/Hives Verified 10/11/23 11:18 strawberry Allergy Rash/Hives Verified 10/11/23 11:18 Surgical - Exam Vital Signs Temp Pulse Resp BP Pulse Ox 98.0 F 96 18 126/89 97 10/11/23 11:15 10/11/23 11:15 10/11/23 11:15 10/11/23 11:15 10/11/23 11:15 Physical exam: General: Well-developed, well-nourished HEENT: Normocephalic, sclerae nonicteric Abdomen: Nontender, nondistended Extremities: No edema Neuro: Alert and oriented Assessment and Plan (1) Anemia Narrative/Plan: Will proceed with upper and lower endoscopy Current Visit: No Status: Acute Code(s): D64.9 - ANEMIA, UNSPECIFIED SNOMED Code(s): 270347293
[2023-10-11 11:49] VITALS: TEMP 98
[2023-10-11 12:30] VITALS: RESP 16
--- NOTE | 2023-10-11 12:31 | P.PCN ---
Date of Procedure: 10/11/23 Procedure(s) Performed: PREOPERATIVE DIAGNOSIS: Anemia, colon cancer screening POSTOPERATIVE DIAGNOSIS: Gastritis, distal esophagitis, rectal polyp PROCEDURE: 1. EGD with biopsy 2. Colonoscopy with snare polypectomy ANESTHESIA: MAC SURGEON: Deshawn Quevedo M.D. SPECIMENS: Antrum, distal esophagus, rectal polyp ENDOSCOPIC PROCEDURE: The patient was on the endoscopy table in the left decubitus position. The Olympus gastroscope was inserted into the oropharynx and passed under direct visualization to the region of the third portion of the duodenum. From that point the scope was slowly withdrawn inspecting all surfaces carefully. There were no neoplastic inflammatory or polypoid lesions throughout the duodenum. The pylorus was widely patent. The stomach was carefully inspected. There was mild gastritis present. A biopsy of the antrum took place to rule out H. pylori. The patient's Lap-Band seem to be slightly lower in position than normal. This is likely related to either prolapse or concentric pouch dilation. The patient had retained bilious fluid both in the stomach and esophagus. This was dark in color and may have represented some recent hemorrhage. The patient had evidence of distal esophagitis as well. Multiple small linear erosions were noted. This could have been causing some of the patient's recent anemia. Biopsies were taken of the distal esophagus as well. The mid and proximal esophagus appeared normal. The patient was kept on the endoscopy table in the left decubitus position. The Olympus colonoscope was inserted into the anus and passed under direct visualization to the base of the cecum. The appendiceal orifice was visualized. From that point the scope was slowly withdrawn inspecting all surfaces carefully. There were no neoplastic inflammatory or polypoid lesions throughout the cecum, ascending, transverse, descending, and sigmoid colon. In the rectum a small polyp was seen and removed using the snare with cautery technique. The remainder of the rectum was normal. There was no visible diverticulosis. Digital rectal examination was normal. The patient was taken to the recovery room in stable condition per anesthesia guidelines. RECOMMENDATIONS: Await biopsy results. Will contact patient with biopsy results. Patient will require emptying of her band at this time. May require band removal. Follow-up. Check center.
[2023-10-11 13:09] VITALS: BP 110/66; PULSE 72
== END 2023-10-11 13:04 | disposition home or self-care (01) ==
LOC: ORWHC2ENDO 10:45
PROVIDERS: ATTEND Surgery
DX: Z12.11 Encounter for screening for malignant neoplasm of colon (principal); K29.50 Unspecified chronic gastritis without bleeding; K21.00 Gastro-esophageal reflux disease with esophagitis, without bleeding; D64.9 Anemia, unspecified; D12.8 Benign neoplasm of rectum; J45.909 Unspecified asthma, uncomplicated; Z90.49 Acquired absence of other specified parts of digestive tract; Z91.040 Latex allergy status; Z79.899 Other long term (current) drug therapy
CPT/HCPCS: 88305; 45385; 43239; J2250; J2405; J3010; J2704

== ENCOUNTER 2023-10-19 06:05 | Emergency (ER) | payer OTHER ==
[2023-10-19 06:16] VITALS: TEMP 97.4
[2023-10-19] MEDS: KETOROLAC 15 MG/ML 1 ML VIAL IVP STA (06:33)
--- NOTE | 2023-10-19 06:36 | ED ---
Extremity Problem HPI - General Chief complaint: Extremity Problem,Nontraumatic Stated complaint: R arm pain,numbness Time Seen by Provider: 10/19/23 06:15 Source: patient, RN notes reviewed Mode of arrival: ambulatory Limitations: no limitations - History of Present Illness Initial comments: 48-year-old female with no significant past medical history presenting with right arm pain and numbness for 1 day. States around 4:00 yesterday afternoon she began to feel a pain and tingling in her right shoulder that radiates down to her hand. Denies trauma or injury. 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 Still awaiting the biopsy results. Denies recent travel, , history of blood clots. She took ibuprofen yesterday which mildly relieves symptoms. - Related Data Home Medications Medication Instructions Recorded Confirmed No Known Home Medications 10/11/23 10/19/23 Allergies Allergy/AdvReac Type Severity Reaction Status Date / Time cat dander Allergy Dyspnea Verified 10/19/23 08:14 feathers Allergy Dyspnea Verified 10/19/23 08:14 latex Allergy Rash/Hives Verified 10/19/23 08:14 strawberry Allergy Rash/Hives Verified 10/19/23 08:14 Review of Systems ROS Statement: Those systems with pertinent positive or pertinent negative responses have been documented in the HPI. ROS Other: All systems not noted in ROS Statement are negative. Past Medical History Past Medical History: Asthma, Blood Disorder, GERD/Reflux Additional Past Medical History / Comment(s): Childhood asthma. Anemia, SEASONAL ALLERGIES, History of Any Multi-Drug Resistant Organisms: None Reported Past Surgical History: Bariatric Surgery, Cholecystectomy, Hysterectomy Additional Past Surgical History / Comment(s): Lap band, oopherectomy., EGD, COLONOSCOPY, BRONCHIAL WASH 07/2023, LT NASAL TUMOR REMOVED Past Anesthesia/Blood Transfusion Reactions: No Reported Reaction Additional Past Anesthesia/Blood Transfusion Reaction / Comment(s): Family hx unknown, pt adopted. Past Psychological History: No Psychological Hx Reported Smoking Status: Never smoker Past Alcohol Use History: Occasional Past Drug Use History: None Reported - Past Family History Father Family Medical History: Unable to Obtain Additional Family Medical History / Comment(s): Patient was adopted. General Exam Limitations: no limitations General appearance: alert, in no apparent distress Head exam: Present: atraumatic, normocephalic, normal inspection Neck exam: Present: normal inspection, other (No cervical spine tenderness). Absent: tenderness, meningismus, lymphadenopathy Respiratory exam: Present: normal lung sounds bilaterally. Absent: respiratory distress, wheezes, rales, rhonchi, stridor Cardiovascular Exam: Present: regular rate, normal rhythm, normal heart sounds. Absent: systolic murmur, diastolic murmur, rubs, gallop, clicks GI/Abdominal exam: Present: soft, normal bowel sounds. Absent: distended, tenderness, guarding, rebound, rigid Extremities exam: Present: normal inspection, full ROM, normal capillary refill, other (Full sensation of bilateral upper extremities. Negative Neer's, negative empty can test). Absent: tenderness, pedal edema, joint swelling, calf tenderness Back exam: Present: normal inspection Neurological exam: Present: alert, oriented X3, CN II-XII intact Psychiatric exam: Present: normal affect, normal mood Skin exam: Present: warm, dry, intact, normal color. Absent: rash Course Vital Signs 10/19/23 06:07 Temperature 97.4 F L Pulse Rate 67 Respiratory 18 Rate Blood Pressure 122/86 O2 Sat by Pulse 97 Oximetry Medical Decision Making - Medical Decision Making Was pt. sent in by a medical professional or institution (, PA, [facility], urgent care, hospital, or senior living...) When possible be specific @ -No Did you speak to anyone other than the patient for history (EMS, parent, family, police, friend...)? What history was obtained from this source @ -No Did you review nursing and triage notes (agree or disagree)? Why? @ -I reviewed and agree with nursing and triage notes Were old charts reviewed (outside hosp., previous admission, EMS record, old EKG, old radiological studies, urgent care reports/EKG's, senior living records)? Report findings @ -No old charts were reviewed Differential Diagnosis (chest pain, altered mental status, abdominal pain women, abdominal pain men, vaginal bleeding, weakness, fever, dyspnea, syncope, h eadache, dizziness, GI bleed, back pain, seizure, CVA, palpatations, mental health, musculoskeletal)? @ -Differential Musculoskeletal Muscular strain, contusion, ligament sprain, fracture, arthritis, septic arthritis, bursitis, cellulitis, muscle spasm, nerve compression, DVT, arterial occlusion, herpes zoster, electrolyte abnormality, tumor.... This is not meant to be in all inclusive list EKG interpreted by me (3pts min.). @ -None X-rays interpreted by me (1pt min.). @ -Cervical spine x-ray reveals moderate spurring and disc space narrowing at C4-C5, C5-C6, and C6-C7. Right shoulder x-ray unremarkable. CT interpreted by me (1pt min.). @ -None done U/S interpreted by me (1pt. min.). @ -Venous ultrasound of right upper arm negative for DVT What testing was considered but not performed or refused? (CT, X-rays, U/S, labs)? Why? @ -None What meds were considered but not given or refused? Why? @ -None Did you discuss the management of the patient with other professionals (professionals i.e. , PA, [facility], lab, RT, psych nurse, manager social services, linux devops engineer, teacher, special service officer, caseworker protective services)? Give summary @ -No Was smoking cessation discussed for >3mins.? @ -No Was critical care preformed (if so, how long)? @ -No Were there social determinants of health that impacted care today? How? (Homelessness, low income, unemployed, alcoholism, drug addiction, transportation, low edu. Level, literacy, decrease access to med. care, correction, rehab)? @ -No Was there de-escalation of care discussed even if they declined (Discuss DNR or withdrawal of care, Hospice)? DNR status @ -No What co-morbidities impacted this encounter? (DM, HTN, Smoking, COPD, CAD, Cancer, CVA, ARF, Chemo, Hep., AIDS, mental health diagnosis, sleep apnea, morbid obesity)? @ -None Was patient admitted / discharged? Hospital course, mention meds given and route, prescriptions, significant lab abnormalities, going to OR and other pertinent info. @ -Patient was discharged. Patient was seen and evaluated for right arm pain and numbness. Vitals are stable and arm is neurovascularly intact. Ultrasound of right upper arm obtained due to history of recent surgery and possible cancer and was negative for DVT. Cervical spine x-ray was positive for cervical radiculopathy. Toradol was given during visit for pain. Patient was discharged in stable condition. Case discussed with Dr. Fletcher Undiagnosed new problem with uncertain prognosis? @ -No Drug Therapy requiring intensive monitoring for toxicity (Heparin, Nitro, Insulin, Cardizem)? @ -No Were any procedures done? @ -No Diagnosis/symptom? @ -Cervical radiculopathy Acute, or Chronic, or Acute on Chronic? @ -Acute Uncomplicated (without systemic symptoms) or Complicated (systemic symptoms)? @ -Uncomplicated Side effects of treatment? @ -No Exacerbation, Progression, or Severe Exacerbation? @ -No Poses a threat to life or bodily function? How? (Chest pain, [place], [place], pneumonia, PE, COPD, DKA, ARF, appy, cholecystitis, CVA, Diverticulitis, Homicidal, Suicid al, threat to staff... and all critical care pts) @ -No Disposition Clinical Impression: Cervical radiculopathy Disposition: HOME SELF-CARE Condition: Stable Instructions (If sedation given, give patient instructions): Cervical Radiculopathy (ED) Additional Instructions: Follow-up with primary care physician. Please return to the Emergency Department if symptoms worsen or any other concerns. Is patient prescribed a controlled substance at d/c from ED?: No Referrals: Israel Presley MD [Primary Care Provider] - 1-2 days Time of Disposition: 08:50
[2023-10-19] MEDS: KETOROLAC 15 MG/ML 1 ML VIAL IM STA ×2 (06:44→08:46)
--- NOTE | 2023-10-19 06:47 | XR ---
EXAMINATION TYPE: XR shoulder complete RT DATE OF EXAM: 10/19/2023 CLINICAL HISTORY: Right shoulder pain. Right arm numbness. TECHNIQUE: Three views of the right shoulder are obtained. COMPARISON: None. FINDINGS: There is no acute fracture/dislocation evident in the right shoulder. Yuer-bi-icvnoggj jaron rowing and mild spurring at the acromioclavicular joint. Glenohumeral joint is maintained. The visua lized ribs are intact and unremarkable. IMPRESSION: As above.
--- NOTE | 2023-10-19 06:49 | XR ---
EXAMINATION TYPE: XR cervical spine limited DATE OF EXAM: 10/19/2023 TECHNIQUE: Frontal, lateral, and open mouth view of the cervical spine are obtained. HISTORY: right arm pain/numbness COMPARISON: Two-view soft tissue neck July 23, 2023 FINDINGS: The cervical spine is visualized from C1 thru mid C7 level, reversal of normal cervical cu rvature redemonstrated centered at C4 level with grade 1 retrolisthesis C4 on C5 and C5 on C6 again s een. Slight scoliotic curvature on the frontal views again seen. The pre-vertebral soft tissue appear s within normal limits. The C1-C2 articulation is within normal limits on the open mouth view. Verte bral body heights are maintained. There is moderate spurring and disc space narrowing at C4-C5 and C5 -C6 levels redemonstrated. There is mild to moderate narrowing at C6-C7 level. Overlying soft tissue is unremarkable. IMPRESSION: As above. No acute findings are seen.
--- NOTE | 2023-10-19 08:44 | US ---
EXAMINATION TYPE: US venous doppler duplex UE RT DATE OF EXAM: 10/19/2023 COMPARISON: NONE CLINICAL INDICATION: Female, 48 years old with history of Right upper arm pain; Arm pain near tricep area. No hx of blood clot or blood thinners. SIDE PERFORMED: Right Right Arm: Negative for DVT IMPRESSION: 1. Right upper extremity ultrasound negative for deep venous thrombosis
[2023-10-19 09:07] VITALS: BP 114/72; PULSE 71; RESP 16
== END 2023-10-19 09:04 | disposition home or self-care (01) ==
LOC: EC 06:05
DX: M54.12 Radiculopathy, cervical region (principal); Z91.040 Latex allergy status; Z88.8 Allergy status to other drugs, medicaments and biological substances; Z91.018 Allergy to other foods
CPT/HCPCS: 72040; 73030; 93971; 96372 ×2; 99284; J1885

== ENCOUNTER → 2023-10-24 | Outpatient (CLI) | payer OTHER ==
--- NOTE | 2023-10-24 11:26 | FL ---
LAP BANDING ESOPHAGRAM AND UPPER GI: CLINICAL HISTORY: R13.10 DYSPHAGIA, UNSPECIFIED LAP banding esophagram and upper GI was performed following the ingestion of gastrografin. The patie nt swallowed gastrografin without difficulty or delay. Esophageal peristalsis and motility are withi n normal limits. Laparoscopic banding device is noted to be in place and demonstrates band slippage without obstruction. KUB was obtained and the bowel gas pattern is unremarkable. IMPRESSION: Laparoscopic banding device is in place with band slippage noted. No evidence for obstruction.
== END | disposition home or self-care (01) ==
LOC: RADUSWWP 09:49
PROVIDERS: ATTEND Surgery
DX: R13.10 Dysphagia, unspecified (principal)
CPT/HCPCS: 74220

== ENCOUNTER → 2023-11-15 | Outpatient (CLI) | payer OTHER ==
[2023-11-15 14:00] VITALS: BP 137/84; PULSE 86; RESP 16; TEMP 98.2; BMI 39.4
--- NOTE | 2023-11-15 16:22 | P.BASOAP ---
Subjective Progress Note Date: 11/15/23 Principal diagnosis: Morbid obesity Patient returns for recheck. Describes decreased restriction after emptying her band. Upper GI performed showing findings consistent with probable gastric prolapse. Patient has gained 20 pounds since her band was empty. Her night cough and vomiting are gone. Her acid reflux is gone. Objective - Vital Signs Vital signs: Vital Signs Temp 98.2 F 11/15/23 13:49 Pulse 86 11/15/23 13:49 Resp 16 11/15/23 13:49 BP 137/84 11/15/23 13:49 Pulse Ox FiO2 Intake & Output 11/14/23 11/15/23 11/15/23 18:59 06:59 18:59 Weight 104.326 kg - Exam Abdomen: Soft, nontender, nondistended Assessment/Plan (1) Gastric prolapse Narrative/Plan: 48-year-old female with gastric prolapse after previous band. Patient requires band removal at this time. Following that patient will consider conversion to gastric bypass in the future. Discussed additional options. She will consider. Will schedule for Lap-Band removal at this time. I do believe this is contributing to the patient's chronic reflux, vomiting, and recurrent pneumonia. Plan: Date: 11/15/23 Initial Weight: 104.326 kg Initial BMI: 39.4 Current Weight: 104.326 kg Current BMI: 39.4 Type of Surgery: Adjustable Gastric Banding Total Volume in Band: Previous Volume: Volume Removed: Volume Added: Band Size:
== END ==
LOC: BARWHC3 13:40
PROVIDERS: ATTEND Surgery
DX: E66.01 Morbid (severe) obesity due to excess calories (principal); Z91.09 Other allergy status, other than to drugs and biological substances; Z91.040 Latex allergy status; Z91.018 Allergy to other foods
CPT/HCPCS: 99211

== ENCOUNTER 2024-04-23 21:37 | Emergency (ER) | payer OTHER ==
[2024-04-23 21:42] VITALS: TEMP 97.8
--- NOTE | 2024-04-23 21:59 | ED ---
Chest Pain HPI - General Source: patient, RN notes reviewed Mode of arrival: ambulatory Limitations: no limitations <Hilda Farias - Last Filed: 04/23/24 21:58> <Niharika Bennett - Last Filed: 04/24/24 01:37> <Mike Ahn - Last Filed: 04/24/24 01:58> - General Chief Complaint: Chest Pain Stated Complaint: L Side Pain Time Seen by Provider: 04/23/24 21:58 - History of Present Illness Initial Comments: Quick note: 48-year-old female presented to ER with a chief complaint of left- sided chest discomfort. She does report this radiates to her centralized chest. Onset 1 hour ago. She does report shortness of breath and pain with deep inspirations. Denies any nausea, vomiting, dizziness or lightheadedness. No known cardiac history. No history of blood clots. (Hilda Farias) 48-year-old female with past medical history of anemia, asthma who presents emergency department reporting left-sided chest pain. States that she has pain that starts in the left side of her chest and radiates to her neck. Pain started an hour prior to hospital arrival. Describes it as a sharp sensation. She did not take anything for the pain before coming in. No history of the similar in the past. She does report shortness of breath with deep inspiration. No history of DVT or PE. No calf pain or swelling. No history of cardiac disease. No other alleviating, precipitating modifying factors (Niharika Bennett) - Related Data Home Medications Medication Instructions Recorded Confirmed traMADol HCl [Ultram] 50 mg PO Q6HR PRN 12/09/23 12/23/23 Previous Rx's Medication Instructions Recorded Famotidine [Pepcid] 20 mg PO BID #14 tablet 04/24/24 Allergies Allergy/AdvReac Type Severity Reaction Status Date / Time cat dander Allergy Dyspnea Verified 04/23/24 21:42 feathers Allergy Dyspnea Verified 04/23/24 21:42 latex Allergy Rash/Hives Verified 04/23/24 21:42 strawberry Allergy Rash/Hives Verified 04/23/24 21:42 Review of Systems ROS Other: All systems not noted in ROS Statement are negative. <Hilda Farias - Last Filed: 04/23/24 21:58> ROS Other: All systems not noted in ROS Statement are negative. <Niharika Bennett - Last Filed: 04/24/24 01:37> ROS Other: All systems not noted in ROS Statement are negative. <Mike Ahn - Last Filed: 04/24/24 01:58> ROS Statement: Those systems with pertinent positive or pertinent negative responses have been documented in the HPI. Past Medical History Past Medical History: Asthma, Blood Disorder, GERD/Reflux Additional Past Medical History / Comment(s): Childhood asthma. Anemia, SEASONAL ALLERGIES, History of Any Multi-Drug Resistant Organisms: None Reported Past Surgical History: Bariatric Surgery, Cholecystectomy, Hysterectomy Additional Past Surgical History / Comment(s): Lap band, oopherectomy., EGD, COLONOSCOPY, BRONCHIAL WASH 07/2023, LT NASAL TUMOR REMOVED Past Anesthesia/Blood Transfusion Reactions: No Reported Reaction Additional Past Anesthesia/Blood Transfusion Reaction / Comment(s): Family hx unknown, pt adopted. Past Psychological History: No Psychological Hx Reported Smoking Status: Never smoker - Past Family History Father Family Medical History: Unable to Obtain Additional Family Medical History / Comment(s): Patient was adopted. <Hilda Farias - Last Filed: 04/23/24 21:58> General Exam Limitations: no limitations <Hilda Farias - Last Filed: 04/23/24 21:58> General appearance: alert, in no apparent distress Head exam: Present: atraumatic, normocephalic, normal inspection Eye exam: Present: normal appearance, PERRL, EOMI. Absent: scleral icterus, conjunctival injection, periorbital swelling ENT exam: Present: normal exam, mucous membranes moist Neck exam: Present: normal inspection. Absent: tenderness, meningismus, lymphadenopathy Respiratory exam: Present: normal lung sounds bilaterally. Absent: respiratory distress, wheezes, rales, rhonchi, stridor Cardiovascular Exam: Present: regular rate, normal rhythm, normal heart sounds. Absent: systolic murmur, diastolic murmur, rubs, gallop, clicks GI/Abdominal exam: Present: soft, normal bowel sounds. Absent: distended, tenderness, guarding, rebound, rigid Extremities exam: Present: normal inspection, full ROM, normal capillary refill. Absent: tenderness, pedal edema, joint swelling, calf tenderness Back exam: Present: normal inspection Neurological exam: Present: alert, oriented X3, CN II-XII intact Psychiatric exam: Present: normal affect, normal mood Skin exam: Present: warm, dry, intact, normal color. Absent: rash <Niharika Bennett - Last Filed: 04/24/24 01:37> - General Exam Comments Initial Comments: Visual Physical Exam Vital signs reviewed General: Well-appearing, nontoxic, no acute distress. Head: Normocephalic, atraumatic Eyes: PERRLA, EOMI ENT: Airway patent Chest: Nonlabored breathing Skin: No visual rash, normal skin tone Neuro: Alert and oriented 3 Musculoskeletal: No gross abnormalities (Hilda Farias) Course Vital Signs 04/23/24 04/23/24 04/24/24 21:40 23:35 00:57 Temperature 97.8 F Pulse Rate 85 75 75 Respiratory 16 18 16 Rate Blood Pressure 133/97 118/82 116/66 O2 Sat by Pulse 98 99 97 Oximetry Chest Pain MDM <Hilda Farias - Last Filed: 04/23/24 21:58> <Niharika Bennett - Last Filed: 04/24/24 01:37> - MDM I performed the quick note portion of this chart. Electronically signed by Hilda Farias PA-C (Hilda Farias) Was pt. sent in by a medical professional or institution ([facility], [employer], urgent care, hospital, or prison...) When possible be specific @ -No Did you speak to anyone other than the patient for history (EMS, parent, family, police, friend...)? What history was obtained from this source @ -No Did you review nursing and triage notes (agree or disagree)? Why? @ -I reviewed and agree with nursing and triage notes Were old charts reviewed (outside hosp., previous admission, EMS record, old EKG, old radiological studies, urgent care reports/EKG's, prison records)? Report findings @ -No old charts were reviewed Differential Diagnosis (chest pain, altered mental status, abdominal pain women, abdominal pain men, vaginal bleeding, weakness, fever, dyspnea, syncope, headache, dizziness, GI bleed, back pain, seizure, CVA, palpatations, mental health, musculoskeletal)? @ -Differential Chest Pain: Stable Angina, Unstable Angina, STEMI, NSTEMI Aortic Dissection, Pneumothorax, Musculoskeletal, Esophageal Spasm GERD, Cholecystitis, Pancreatitis, Zoster, this is not meant to be an all-inclusive list. EKG interpreted by me (3pts min.). @ -Yes and demonstrates sinus rhythm with rate of 66. MO interval 170. QRS 90. QTc of 410. No acute ST segment elevation. Inverted T wave in lead III X-rays interpreted by me (1pt min.). @ -Yes and demonstrates no acute process CT interpreted by me (1pt min.). @ -None done U/S interpreted by me (1pt. min.). @ -None done What testing was considered but not performed or refused? (CT, X-rays, U/S, labs)? Why? @ -None What meds were considered but not given or refused? Why? @ -None Did you discuss the management of the patient with other professionals (professionals i.e. , PA, TRESTLE MECHANIC, lab, RT, psych nurse, clinical social worker, automotive brake adjuster, teacher, booking officer, telephonic case manager)? Give summary @ -No Was smoking cessation discussed for >3mins.? @ -No Was critical care preformed (if so, how long)? @ -No Were there social determinants of health that impacted care today? How? (Homelessness, low income, unemployed, alcoholism, drug addiction, antonio sportation, low edu. Level, literacy, decrease access to med. care, correction, rehab)? @ -No Was there de-escalation of care discussed even if they declined (Discuss DNR or withdrawal of care, Hospice)? DNR status @ -No What co-morbidities impacted this encounter? (DM, HTN, Smoking, COPD, CAD, Cancer, CVA, ARF, Chemo, Hep., AIDS, mental health diagnosis, sleep apnea, morbid obesity)? @ -None Was patient admitted / discharged? Hospital course, mention meds given and route, prescriptions, significant lab abnormalities, going to OR and other pertinent info. @ -Upon arrival patient seen and evaluated in room 7. Thorough history and physical exam was performed. IV access was established. Laboratory studies are conducted. Chest x-ray was performed. Patient does have an elevated D-dimer. She is sent over for CT. CT pending at this time. Dr. Martin will follow-up on the results Undiagnosed new problem with uncertain prognosis? @ -No Drug Therapy requiring intensive monitoring for toxicity (Heparin, Nitro, Insulin, Cardizem)? @ -No Were any procedures done? @ -No Diagnosis/symptom? @ -Acute pleuritic chest pain Acute, or Chronic, or Acute on Chronic? @ -Acute Uncomplicated (without systemic symptoms) or Complicated (systemic symptoms)? @ -Complicated Side effects of treatment? @ -No Exacerbation, Progression, or Severe Exacerbation? @ -No Poses a threat to life or bodily function? How? (Chest pain, [place], [place], pneumonia, PE, COPD, DKA, ARF, appy, cholecystitis, CVA, Diverticulitis, Homicidal, Suicidal, threat to staff... and all critical care pts) @ -No (Niharika Bennett) Disposition <Hilda Farias - Last Filed: 04/23/24 21:58> <Niharika Bennett - Last Filed: 04/24/24 01:37> Is patient prescribed a controlled substance at d/c from ED?: No <Mike Ahn - Last Filed: 04/24/24 01:58> Clinical Impression: Esophagitis Disposition: HOME SELF-CARE Condition: Good Instructions (If sedation given, give patient instructions): Esophagitis (ED) Prescriptions: Famotidine [Pepcid] 20 mg PO BID #14 tablet Referrals: Israel Presley MD [Primary Care Provider] - 1-2 days
--- NOTE | 2024-04-23 22:08 | XR ---
EXAMINATION TYPE: XR chest 2V DATE OF EXAM: 04/23/2024 COMPARISON: CXR from 07/23/23 HISTORY: Left sided Chest pain. TECHNIQUE: Frontal and lateral views of the chest are obtained. FINDINGS: There is no suspicious focal air space opacity, pleural effusion, or pneumothorax seen. T he cardiac silhouette size remains within normal limits. The osseous structures are intact. IMPRESSION: No acute process. [facility], , 04/23/2024 10:06 PM
[2024-04-24] MEDS: KETOROLAC 15 MG/ML 1 ML VIAL IVP STA (00:03)
[2024-04-24 00:08] LABS: ALT 16 U/L (4-34); AST 25 U/L (14-36); African American GFR (CKD) >90 (>60 ml/min/1.73 sqM); Albumin 4.2 g/dL (3.5-5.0); Alkaline Phosphatase 88 U/L (38-126); Anion Gap 5 mmol/L; Blood Urea Nitrogen 26 mg/dL (7-17); Calcium 9.1 mg/dL (8.4-10.2); Carbon Dioxide 27 mmol/L (22-30); Chloride 108 mmol/L (98-107); Glucose 104 mg/dL (74-99); Magnesium 2.1 mg/dL (1.6-2.3); Non-African American GFR(CKD) >90 (>60 ml/min/1.73 sqM); Potassium 3.8 mmol/L (3.5-5.1); Sodium 140 mmol/L (137-145); Total Bilirubin 1.1 mg/dL (0.2-1.3); Total Protein 6.6 g/dL (6.3-8.2)
[2024-04-24 00:32] LABS: HCT 42.3 % (34.0-46.0); HGB 13.7 gm/dL (11.4-16.0); MCH 30.4 pg (25.0-35.0); MCHC 32.4 g/dL (31.0-37.0); Mean Platelet Volume 8.2; Platelet Count 253 k/uL (150-450); RDW 13.7 % (11.5-15.5); WBC 7.9 k/uL (3.8-10.6)
[2024-04-24 00:39] LABS: INR 0.9 (<1.2); Partial Thromboplastin Time 24.8 sec (22.0-30.0)
[2024-04-24 00:58] VITALS: RESP 16
[2024-04-24 01:41] LABS: Eosinophils # (M) 0.16 k/uL (0-0.7); Lymphocytes # (M) 2.84 k/uL (1.0-4.8); Monocytes # (M) 0.32 k/uL (0-1.0); Neutrophils # (M) 4.58 k/uL (1.3-7.7); Neutrophils % (M) 58 %; Nucleated Red Blood Cells 0 /100 WBC (0-0); Total Cells Counted 100
[2024-04-24 01:43] LABS: Poikilocytosis (M) Present
--- NOTE | 2024-04-24 01:47 | CT ---
EXAMINATION TYPE: CT chest angio for PE DATE OF EXAM: 04/24/2024 COMPARISON: Chest x-ray one day earlier. Prior CTA chest July 15, 2023 HISTORY: Left sided chest pain "in my boob" that radiates up her chest. Started an hour ago. Elevated d-dimer. CT DLP: 674.3 mGycm. Automated Exposure Control for Dose Reduction was Utilized. CONTRAST: CTA scan of the thorax is performed with IV Contrast, patient injected with 100ml mL of Isovue 370, p ulmonary embolism protocol. MIP Images are created on CT scanner and reviewed. FINDINGS: LUNGS: Mild linear scarring or atelectasis left lung base. Right lung is clear. There is no pleural effusion or pneumothorax seen. The tracheobronchial tree is patent. MEDIASTINUM: There is satisfactory enhancement of the pulmonary artery and its branches, there is no CT evidence for pulmonary embolism. Enhancement of the aorta without aneurysm or dissection. No cardi omegaly or pericardial effusion. Focal moderate to severe wall thickening in the distal esophagus jus t above the lap band is noted on current study OTHER: The lap band device in the epigastric region is redemonstrated. Position is stable and satisfa ctory. IMPRESSION: No CT evidence for acute pulmonary embolism. No suspicious acute pulmonary process. Dista l esophagitis is not excluded. Correlate clinically. [facility], , 04/24/2024 1:45 AM
[2024-04-24] MEDS: MAG HYDROX/AL HYDROX/SIMETH 30 ML, HYOSCYAMINE ELIXIR 10 ML, LIDOCAINE VISCOUS 2% 10 ML PO STA (02:11)
[2024-04-24 02:13] VITALS: BP 97/60; PULSE 85
== END 2024-04-24 02:18 | disposition home or self-care (01) ==
LOC: EC 21:37
CPT/HCPCS: 36415; 71046; 71275; 80053; 83735; 84484; 85025; 85379; 85610; 85730; 93005; 96374; 99285

== ENCOUNTER → 2024-05-02 | Outpatient (CLI) | payer OTHER ==
[2024-05-02 15:15] VITALS: PULSE 73; RESP 16; TEMP 98.1; BMI 43.7
--- NOTE | 2024-05-02 15:58 | P.HPBAR ---
Bariatric H&P - History & Physicial H&P Date: 05/02/24 History & Physicial: Visit/CC: new pt Patient initial contact: Initial weight: 104.326 kg Initial weight in pounds: 230.00 Height: 5 ft 5 in Initial BMI: 38.2 Last weight: Current weight: 119.295 kg Current weight in pounds: 263.00 Current BMI: 43.7 [place] body weight (based on NIH guidelines): 56.699 kg Excess body weight loss: The patient is a 48 year-old F who presents for Bariatric Assessment. She has a band. Was lower to 150 pounds. She is now 260 pounds. She had a friend with duodenal switch. She wants surgery. She wants surgery now prior to the end of the year. No food journal. EKG needed. Past Medical History Past Medical History: Asthma, Blood Disorder, GERD/Reflux Additional Past Medical History / Comment(s): Childhood asthma. Anemia, SEASON AL ALLERGIES, History of Any Multi-Drug Resistant Organisms: None Reported Past Surgical History: Bariatric Surgery, Cholecystectomy, Hysterectomy Additional Past Surgical History / Comment(s): Lap band, oopherectomy., EGD, COLONOSCOPY, BRONCHIAL WASH 07/2023, LT NASAL TUMOR REMOVED Past Anesthesia/Blood Transfusion Reactions: No Reported Reaction Additional Past Anesthesia/Blood Transfusion Reaction / Comm: Family hx unknown, pt adopted. Past Psychological History: No Psychological Hx Reported Smoking Status: Never smoker Past Alcohol Use History: Occasional Past Drug Use History: None Reported - Past Family History Father Family Medical History: Unable to Obtain Additional Family Medical History / Comment(s): Patient was adopted. Surgical - Exam Vital Signs Temp Pulse Resp 98.1 F 73 16 05/02/24 15:01 05/02/24 15:01 05/02/24 15:01 Bariatric Checklist Checklist: Plan: Checklist: EGD: 1. Hiatal hernia: 2. H. Pylori: HgbA1c: Vitamin D: Smoking: Never smoker Primary care physician referral: dianna blair Psychiatry clearance: Cardiology clearance: Sleep study: Diet journal: VTE risk score: VTE risk level: Rehab needs at discharge:
== END ==
LOC: BARWHC3 14:26
PROVIDERS: ATTEND Surgery Plastic and Reconstructive Surgery
DX: E66.01 Morbid (severe) obesity due to excess calories (principal); Z68.41 Body mass index [BMI] 40.0-44.9, adult; Z91.018 Allergy to other foods; Z91.048 Other nonmedicinal substance allergy status; Z91.040 Latex allergy status
CPT/HCPCS: 99211

== ENCOUNTER → 2024-05-02 | Outpatient (CLI) | payer OTHER ==
[2024-05-02 17:17] LABS: INR 0.9 (<1.2); Partial Thromboplastin Time 23.7 sec (22.0-30.0); Prothrombin Time 9.8 sec (10.0-12.5)
[2024-05-03 02:30] LABS: HCT 48.3 % (37.2-46.3); HGB 15.4 g/dL (12.0-15.0); MCH 29.7 pg (27.0-32.0); MCHC 31.9 g/dL (32.0-37.0); MCV 93.2 FL (80.0-97.0); Mean Platelet Volume 12.3 FL (9.5-12.2); NRBC Per 100 WBC 0 X 10*3/uL (0.00-0.01); Platelet Count 281 X 10*3/uL (140-440); RBC 5.18 X 10*6/uL (4.10-5.20); RDW 14.3 % (11.5-14.5); WBC 10.59 X 10*3/uL (4.50-10.00)
[2024-05-03 03:32] LABS: Prealbumin 21.2 mg/dL (18.0-42.0)
[2024-05-03 04:10] LABS: Chol/HDL Ratio 2.52 Ratio; LDL Cholesterol,Calculated 121.3 mg/dL (0.0-131.0); Magnesium 2.2 mg/dL (1.5-2.4); Phosphorus 3.6 mg/dL (2.4-5.1); VLDL Calculation 19.34 mg/dL (5.00-40.00)
[2024-05-03 04:11] LABS: % Iron Saturation 18.84 (12.00-45.00); ALT 22 U/L (8-44); AST 20 U/L (13-35); Albumin 4.5 g/dL (3.8-4.9); Albumin/Globulin Ratio 1.61 Ratio (1.60-3.17); Alkaline Phosphatase 103 U/L (41-126); BUN/Creat Ratio 36.71 Ratio (12.00-20.00); Blood Urea Nitrogen 25.7 mg/dL (9.0-27.0); Calcium 9.6 mg/dL (8.7-10.3); Carbon Dioxide 22.2 mmol/L (21.6-31.8); Chloride 103 mmol/L (96-109); Globulin 2.8 g/dL (1.6-3.3); Glucose 107 mg/dL (70-110); Iron 68 UG/DL (50-170); Potassium 4.3 mmol/L (3.5-5.5); Sodium 141 mmol/L (135-145); Total Bilirubin 0.5 mg/dL (0.3-1.2); Total Iron Binding Capacity 361 UG/DL (228-460); Total Protein 7.3 g/dL (6.2-8.2)
[2024-05-03 11:57] LABS: Zinc, Serum 86 ug/dL (60-130)
[2024-05-04 05:56] LABS: Vit B1(Thiamine) 112 ug/L (38-122)
[2024-05-04 12:03] LABS: Vitamin A 58 ug/dL (38-106)
[2024-05-05 09:44] LABS: Anabasine Urine <2.0 ng/mL (<2.0)
== END | disposition home or self-care (01) ==
LOC: LABWHC1 16:10
PROVIDERS: ATTEND Surgery Plastic and Reconstructive Surgery
DX: Z48.89 Encounter for other specified surgical aftercare (principal); E89.1 Postprocedural hypoinsulinemia; D50.8 Other iron deficiency anemias; D50.9 Iron deficiency anemia, unspecified; K91.2 Postsurgical malabsorption, not elsewhere classified; E44.0 Moderate protein-calorie malnutrition; E44.1 Mild protein-calorie malnutrition; E45 Retarded development following protein-calorie malnutrition; E46 Unspecified protein-calorie malnutrition; E55.9 Vitamin D deficiency, unspecified; K74.1 Hepatic sclerosis; N19 Unspecified kidney failure; T56.894A Toxic effect of other metals, undetermined, initial encounter; K50.90 Crohn's disease, unspecified, without complications
CPT/HCPCS: 36415; 80053; 80061; 80307; 80323; 82306; 82525; 82607; 82728; 82746; 83036; 83540; 83550; 83735; 83970; 84100; 84134; 84255; 84425; 84443; 84590; 84630; 85027; 85610; 85730; 93005

== ENCOUNTER → 2024-06-19 | Outpatient (CLI) | payer OTHER ==
[2024-06-19 16:27] LABS: Basophils # (A) 0.05 X 10*3/uL (0.00-0.10); Basophils % (A) 0.7 %; Eosinophils # (A) 0.33 X 10*3/uL (0.04-0.35); Eosinophils % (A) 4.4 %; HCT 44.8 % (37.2-46.3); HGB 14.4 g/dL (12.0-15.0); Lymphocytes # (A) 2.17 X 10*3/uL (0.90-5.00); Lymphocytes % (A) 28.7 %; MCH 29.4 pg (27.0-32.0); MCHC 32.1 g/dL (32.0-37.0); MCV 91.4 FL (80.0-97.0); Mean Platelet Volume 11.1 FL (9.5-12.2); Monocytes # (A) 0.48 X 10*3/uL (0.20-1.00); Monocytes % (A) 6.3 %; NRBC Per 100 WBC 0 X 10*3/uL (0.00-0.01); Neutrophils # (A) 4.51 X 10*3/uL (1.80-7.70); Neutrophils % (A) 59.6 %; Platelet Count 259 X 10*3/uL (140-440); RDW 13.5 % (11.5-14.5); WBC 7.56 X 10*3/uL (4.50-10.00)
[2024-06-19 16:47] LABS: ALT 13 U/L (8-44); AST 15 U/L (13-35); Alkaline Phosphatase 102 U/L (41-126); BUN/Creat Ratio 26.57 Ratio (12.00-20.00); Blood Urea Nitrogen 18.6 mg/dL (9.0-27.0); Calcium 9.2 mg/dL (8.7-10.3); Carbon Dioxide 24.9 mmol/L (21.6-31.8); Chloride 107 mmol/L (96-109); Globulin 2.5 g/dL (1.6-3.3); Glucose 91 mg/dL (70-110); Potassium 4.4 mmol/L (3.5-5.5); Sodium 142 mmol/L (135-145); Total Bilirubin 1.2 mg/dL (0.3-1.2); Total Protein 6.5 g/dL (6.2-8.2)
== END | disposition home or self-care (01) ==
LOC: LABPAT 08:58
PROVIDERS: ATTEND Surgery Plastic and Reconstructive Surgery
DX: Z01.812 Encounter for preprocedural laboratory examination (principal)
CPT/HCPCS: 80053; 85025

== ENCOUNTER 2024-06-25 13:24 | Day surgery (SDC) | payer OTHER ==
[2024-06-21 14:05] VITALS: BMI 47.3
[~2024-06-25 13:24] MED LIST changes: -HYDROcodone/APAP 5-325MG 1 EACH TAB ONE; +HYDROmorphone 0.5 MG/0.5 ML SYRINGE IVP PRN; +LIDOCAINE 1% (10MG/ML) FOR IV START INTRADERMA PRN; -MIDAZOLAM 2 MG/2 ML VIAL ONE; -ONDANSETRON 4 MG/2 ML VIAL ONE; -OXYMETAZOLINE 0.05% NASL SPRAY 1 SPRAY BOTTLE ONE; -PROPOFOL 10 MG/ML 20 ML VIAL IV ONE; -SUCCINYLCHOLINE CHLORIDE 200 MG/10 ML VIAL IV ONE; -fentaNYL (PF) 50 MCG/ML 2 ML AMP ONE
[2024-06-25] MEDS: IV FLUID CONTINUATION 1,000 ML IV ONE (13:43)
[2024-06-25] MEDS: HEPARIN SODIUM,PORCINE 5,000 UNIT/ML 1 ML VIAL SQ PRN (13:54)
[2024-06-25] MEDS: ACETAMINOPHEN TAB 500 MG TAB PO PRN (13:55)
[2024-06-25] MEDS: DEXAMETHASONE SOD PHOSPHATE 4 MG/ML 1 ML VIAL IVP STA (13:55)
[2024-06-25] MEDS: ONDANSETRON 4 MG/2 ML VIAL IVP PRN (13:55)
[2024-06-25] MEDS: LACTATED RINGERS 1,000 ML IV SCH (13:56)
--- NOTE | 2024-06-25 14:17 | P.GSHP ---
History of Present Illness H&P Date: 06/25/24 CHIEF COMPLAINT: Morbid obesity HISTORY OF PRESENT ILLNESS: Laura Trevino is a 49-year-old female who comes with lifelong morbid obesity. She had adjustable gastric band placement however has intolerance to band adjustments. She developed intractable gastroesophageal reflux disease. As result of morbid obesity, she has developed osteoarthritis of the hips and knees. She has completed medical supervised weight loss. She completed medical including cardiac assessment. She has completed psychological risk assessment. All surgical options were reviewed. She elected for removal of adjustable gastric band At height of 5 feet 4 inches, her ideal body weight is 144 pounds. She comes in 124.9 kg. Her body mass index is 47.3. PAST MEDICAL HISTORY: 1. Morbid obesity due to excess calories 2. Body mass index of 47.3 3. Osteoarthritis of the knees. 4. Osteoarthritis of the lower back. 5. Asthma PAST SURGICAL HISTORY: 1. Cholecystectomy 2. Adjustable gastric band placement HOME MEDICATIONS: ALLERGIES: SOCIAL HISTORY: No recent tobacco use. FAMILY HISTORY: No family history of ulcerative colitis disease or Crohn's disease. Family history of morbid obesity. No lupus in the family. No reports of stomach or esophageal cancer. REVIEW OF ORGAN SYSTEMS: CONSTITUTIONAL: At height of 5 feet 4 inches, her ideal body weight is 144 pounds. HEENT: Denies any active troubles with vision or hearing. ENDOCRINE: Has diabetes. Has hypothyroidism. CARDIOVASCULAR: Past reports of palpitations or heart attacks or chest pain. RESPIRATORY: Has daytime somnolence. GASTROINTESTINAL: Denies any bright red blood per rectum. Has gastroesophageal reflux disease. MUSCULOSKELETAL: Has lower back pain and joint pain. Has osteoarthritis of the knees. NEURO: No headaches. No seizure disorders. PSYCH: Has depression. No suicidal ideation. RHEUMATOLOGIC: No lupus. No rheumatoid arthritis. HEMATOLOGIC: Denies any abnormal bleeding or bruising. No personal history of DVTs. SKIN: Has rash. No skin cancer. PHYSICAL EXAM: VITAL SIGNS: Height 5 foot 4 inches, weight 124.9 kg. BMI 47.3 GENERAL: Well-developed in no acute distress. HEENT: No scleral icterus. Extraocular movements grossly intact. Hears conversational speech. No nasal drainage. NECK: Supple without lymphadenopathy. CHEST: Nonlabored respirations with equal bilateral excursions. CARDIOVASCULAR: Regular rate and regular rhythm. Distal 2+ pulses. ABDOMEN: Obese, soft, nontender, nondistended. Adjustable gastric band port MUSCULOSKELETAL: No clubbing, cyanosis. NEURO: No focal or lateralizing signs. Cranial nerves 2 through 12 grossly within normal limits. PSYCH: Appropriate affect. Alert and oriented to person, place and time. SKIN: Good skin turgor. Well perfused. ASSESSMENT: 1. Morbid obesity due to excess calories 2. Body mass index of 47.3 3. Osteoarthritis of the knees. 4. Osteoarthritis of the lower back. 5. Asthma 6. Complications from adjustable gastric band PLAN: 1. She has intolerance with adjustments of adjustable gastric band and has deve loped complications. She has elected for complete removal of adjustable gastric band and port including components. 2. At this time, patient is electing for separate bariatric procedure 3. Symptoms should resolve after removal of adjustable gastric band 4. Patient is elevated risk due to comorbid conditions Past Medical History Past Medical History: Asthma, Blood Disorder, GERD/Reflux Additional Past Medical History / Comment(s): Acid reflux resolved at this time. Hx Anemia. SEASONAL ALLERGIES. Varicose veins right leg. Pinched nerve in right shoulder. History of Any Multi-Drug Resistant Organisms: None Reported Past Surgical History: Bariatric Surgery, Cholecystectomy, Hysterectomy Additional Past Surgical History / Comment(s): Lap band, oopherectomy, EGD, COLONOSCOPY, BRONCHIAL WASH 07/2023, LEFT NASAL TUMOR REMOVED trigger point injection right shoulder. Past Anesthesia/Blood Transfusion Reactions: No Reported Reaction Additional Past Anesthesia/Blood Transfusion Reaction / Comment(s): Family hx unknown, pt adopted. Smoking Status: Never smoker - Past Family History Father History Unknown: Yes Family Medical History: Unable to Obtain Additional Family Medical History / Comment(s): Patient was adopted. Medications and Allergies Home Medications Medication Instructions Recorded Confirmed Type traMADol HCl [Ultram] 50 mg PO TID PRN 12/09/23 06/21/24 History Albuterol Inhaler [Ventolin Hfa 1 - 2 puff INHALATION Q6H PRN 06/21/24 06/21/24 History Inhaler] Budesonide-Formot 160-4.5 Mcg 2 puff INHALATION BID 06/21/24 06/21/24 History [Symbicort 160-4.5 Mcg Inhaler] Allergies Allergy/AdvReac Type Severity Reaction Status Date / Time cat dander Allergy Dyspnea Verified 06/25/24 13:43 feathers Allergy Dyspnea Verified 06/25/24 13:43 latex Allergy Rash/Hives Verified 06/25/24 13:43 strawberry Allergy Rash/Hives Verified 06/25/24 13:43 Surgical - Exam Vital Signs Temp Pulse Resp BP Pulse Ox 97.0 F L 100 18 154/80 95 06/25/24 13:51 06/25/24 13:51 06/25/24 13:51 06/25/24 13:51 06/25/24 13:51
[2024-06-25] MEDS ORDERED: HEPARIN SODIUM,PORCINE 5,000 UNIT/ML 1 ML VIAL SQ STA (14:18)
[2024-06-25] MEDS ORDERED: SUCCINYLCHOLINE CHLORIDE 200 MG/10 ML VIAL IV ONE (15:05)
[2024-06-25] MEDS ORDERED: NEOSTIGMINE 1 MG/ML 10 ML VIAL ONE (15:05)
[2024-06-25] MEDS ORDERED: GLYCOPYRROLATE 0.2 MG/ML 2 ML VIAL ONE (15:05)
[2024-06-25] MEDS ORDERED: PROPOFOL 10 MG/ML 20 ML VIAL IV ONE (15:05)
[2024-06-25] MEDS ORDERED: LIDOCAINE 1% INJ 10MG/ML (20 ML MDV) ONE (15:05)
[2024-06-25] MEDS ORDERED: MIDAZOLAM 2 MG/2 ML VIAL ONE (15:05)
[2024-06-25] MEDS ORDERED: fentaNYL (PF) 50 MCG/ML 2 ML AMP ONE (15:05)
[2024-06-25] MEDS ORDERED: ROCURONIUM 10 MG/ML (5 ML VIAL) IV ONE (15:05)
[2024-06-25] MEDS: ceFAZolin 3 GM in SODIUM CHLORIDE 0.9% 100 ML IVPB PRN (15:10)
[2024-06-25] MEDS: LIDOCAINE 1%-EPI 1:100,000 20 ML VIAL SQ ONE (15:32)
[2024-06-25] MEDS: LACTATED RINGERS 1,000 ML IV ONE (16:00)
[2024-06-25 16:39] VITALS: TEMP 97
--- NOTE | 2024-06-25 16:53 | P.OP ---
Date of Procedure: 06/25/24 Description of Procedure: SURGEON: SILVIA CRAFT MD TECHNICAL SOURCING RECRUITER: TOBY PREOPERATIVE DIAGNOSES: 1. Morbid obesity due to excess calories 2. Body mass index of 47.3 3. Gastroesophageal reflux disease 4. Dysphagia 5. Chronic obstructive pulmonary disease due to asthma 6. Complications from adjustable gastric band POSTOPERATIVE DIAGNOSES: 1. Morbid obesity due to excess calories 2. Body mass index of 47.3 3. Gastroesophageal reflux disease 4. Dysphagia 5. Chronic obstructive pulmonary disease due to asthma 6. Complications from adjustable gastric band 7. Moderate hepatomegaly fatty liver disease 8. Intra-abdominal adhesions 9. Duodenitis 10. Gastritis OPERATION: 1. Robotic-assisted da Dulce Maria Xi laparoscopic removal of adjustable gastric band and all components. 2. Esophagogastroduodenoscopy with cold forcep biopsies esophagus, duodenum and antrum ANESTHESIA: General with local anesthetic. ESTIMATED BLOOD LOSS: 5 mL SPECIMENS REMOVED: 1. Adjustable gastric band and components 2. Duodenum 3. Antrum 4. Esophagus Condition: stable Disposition: same day COMPLICATIONS: None. Operative Findings: 1. Adjustable gastric band port found along the epigastrium removed in total 2. Densely encased adjustable gastric band removed in total 3. Moderate hepatomegaly. 4. Dense adhesions adjustable gastric band eroding through the liver. 5. No band erosion identified by endoscopy. 6. Multiple biopsy obtained of the duodenum esophagus and antrum. 7. Port removed without sequela. 8. Very deep subcutaneous tissue over 7 cm at the epigastrium. 9. Band removed in 3 portions including tubing, buckle and band. INDICATIONS: The patient is a 49-year-old female who presents with complications of her adjustable gastric band. Surgical options were described including removal of the band. As she has persistent pain and discomfort from the band, r emoval of the adjustable gastric band and port including all components was proposed. Benefits and risks of the procedure were described. Informed consent was obtained. DESCRIPTION: The patient was brought into the operating room theater. She was placed supine. She had received heparin subcutaneously for DVT prophylaxis. After general induction, the abdomen was prepped and draped in standard sterile fashion. Ioban draping was placed along the abdomen. A robotic da Dulce Maria Xi system was prepped and primed. Prior to incision, a timeout protocol was performed and confirmed with the surgical team. Attention was brought to the abdomen where the port was palpated along the epigastrium. After localizing the skin, transverse 3 cm incision was made over the adjustable gastric band port and circumferentially dissected free using Bovie cautery and blunt dissection. Subcutaneous tissue was extremely thick over 7 cm requiring extensive dissection. Port was removed without sequelae. Attention was now brought to the intra-abdominal component of the procedure for the removal of the adjustable gastric band. Incisions were proposed at 12 cm from the xiphoid. Proposed port sites were marked with indelible marker along the anterior axillary line bilaterally, mid clavicular line bilaterally with each port marked 10 cm from each other. A 5 mm 0 degrees laparoscopic trocar entry was performed along the left upper quadrant. The abdomen was insufflated to 15 mmHg pressure, which she tolerated well. Diagnostic laparoscopy demonstrated no injury to bowel, viscera, or mesentery. An 8 mm camera port was placed left lateral to the umbilicus at the epigastrium, 10 cm distal to the xiphoid. Next, 8-mm port was placed along the right mid abdomen. The 5 mm port was exchanged for 12 mm trocar. Another 8 mm trocar was placed along the left lateral abdominal wall. The robot was docked along the left lateral abdomen. The patient was repositioned in reverse Trendelenburg position, 25-degrees. A 30-degree camera was used. Using graspers for arm 1, including scissors with cautery for arm 2, and graspers used for arm 4, the robotic system was docked and primed as described. Instruments were interchanged by the mailroom assistant. I had sat at the console. Adjustable gastric band through the left lateral edge of the liver and was embedded into dense cicatrix which was carefully dissected free. Additionally, the buckle of the adjustable gastric band was densely adherent to the deep tissue requiring cutting the band away from the buckle. The port was followed with its tubing to the gastric band. The gastrohepatic ligament was scarred from prior surgery. The cicatrix around the adjustable gastric band was carefully dissected free. The anti-prolapse stitch was intact. Using hot cautery, the cicatrix of the port was incised. The band was then freed. Allergan adjustable gastric band was removed in total. Care was taken to avoid any gastrotomies. The band buckle was cut. I then went to the head of the bed to perform intraoperative esophagogastroduodenoscopy to evaluate for proximal disease including gastritis. An Olympus gastroscope was passed from the posterior oropharynx down to the esophagus, where the squamocolumnar junction was found LA grade B erosive esophagitis, chronic changes. The stomach was entered. Mild chronic gastritis was found along the antrum with biopsies obtained of the antrum, esophagus and duodenum. Retroflexion of the scope confirmed a Hill grade 2 lower esophageal valve. No full-thickness erosion from the prior band was encountered. The stomach was desufflated. The patient tolerated the procedure well. No evidence of leak was encountered from the removal of the band. The scope was removed with desufflation of the stomach. Gastritis and duodenitis was found. I re-scrubbed into the case. The port and band were removed in total without injury to the stomach via the epigastrium including the cut buckle. Hemostasis was excellent. Diagnostic laparoscopy demonstrated complete removal of all foreign body. All instruments and pneumoperitoneum were evacuated from the abdominal cavity. The port extraction site was hemostatic. The port site was irrigated using normal saline and hydrogen peroxide. The incisions were reapproximated using 4- 0 Monocryl in a subcuticular interrupted fashion. Optifoam dressing was placed o dwaine the port extraction site. At the end of the procedure, needle, sponge and instrument counts were verified correct by the neurosurgical nurse. The patient had tolerated the procedure well. An abdominal binder was placed. The patient was transferred to Postanesthesia Care Unit in stable condition. Postoperative findings with intraoperative images were discussed with the patient's family who were pleased with the level of care. Plan - Discharge Summary Discharge Rx Participant: Yes New Discharge Prescriptions: New Simethicone [Gas-X] 125 mg PO AC-TID PRN #20 capsule PRN Reason: Pain Ibuprofen [Motrin] 600 mg PO Q8HR PRN #30 tab PRN Reason: Pain Acetaminophen Tab [Tylenol Tab] 1,000 mg PO Q6HR PRN #30 tablet PRN Reason: Pain Continue traMADol HCl [Ultram] 50 mg PO TID PRN PRN Reason: Pain Albuterol Inhaler [Ventolin Hfa Inhaler] 1 - 2 puff INHALATION Q6H PRN PRN Reason: Shortness Of Breath Budesonide-Formot 160-4.5 Mcg [Symbicort 160-4.5 Mcg Inhaler] 2 puff INHALATION BID Discharge Medication List traMADol HCl [Ultram] 50 mg PO TID PRN 12/09/23 [History] Albuterol Inhaler [Ventolin Hfa Inhaler] 1 - 2 puff INHALATION Q6H PRN 06/21/24 [History] Budesonide-Formot 160-4.5 Mcg [Symbicort 160-4.5 Mcg Inhaler] 2 puff INHALATION BID 06/21/24 [History] Acetaminophen Tab [Tylenol Tab] 1,000 mg PO Q6HR PRN #30 tablet 06/25/24 [Rx] Ibuprofen [Motrin] 600 mg PO Q8HR PRN #30 tab 06/25/24 [Rx] Simethicone [Gas-X] 125 mg PO AC-TID PRN #20 capsule 06/25/24 [Rx] Follow up App[facility]ment(s[facility]Ref[facility] [place] [facility] - 06/29/24 9:00 am Patient Instructions/Handouts: *Surgery [facility] - (Anesthesia) Discharge Instructions Outpatient Surgery, *Surgery [facility] - Scopalamine Patch Instructions, Adjustable Gastric Band Removal (DC) Activity/Diet/Wound Care/Special Instructions: NO LONG DRIVES OR AIRPLANE RIDES OVER 60 MINUTES FOR THE NEXT 2 WEEKS, 07/09/24, DUE TO HIGH RISK OF PULMONARY EMBOLISM/DVTs May drive in 72 hrs, 06/28/24 No lifting over 10 pounds in 2 weeks until 07/09/24 May shower with dressing No bath tub soaks for two weeks until 07/09/24, Diet as tolerated. Use Tylenol, simethicone for the next 24-48 hours for best pain relief. Use ice along incisions for today to prevent swelling. REMOVE DRESSING Tuesday06/29/24 Had Tylenol at 1:55. Discharge Disposition: HOME SELF-CARE
[2024-06-25] MEDS: SCOPOLAMINE 1 MG/72 HR PATCH TRANSDERM STA (16:57)
[2024-06-25] MEDS: KETOROLAC 15 MG/ML 1 ML VIAL IVP STA (17:21)
[2024-06-25 18:06] VITALS: BP 129/84; PULSE 88; RESP 20
== END 2024-06-25 18:28 | disposition home or self-care (01) ==
LOC: OR 13:24
PROVIDERS: ATTEND Surgery Plastic and Reconstructive Surgery
DX: T85.848A Pain due to other internal prosthetic devices, implants and grafts, initial encounter (principal); E66.01 Morbid (severe) obesity due to excess calories; Z68.42 Body mass index [BMI] 45.0-49.9, adult; K29.80 Duodenitis without bleeding; K29.50 Unspecified chronic gastritis without bleeding; K21.00 Gastro-esophageal reflux disease with esophagitis, without bleeding; J44.89 Other specified chronic obstructive pulmonary disease; K66.0 Peritoneal adhesions (postprocedural) (postinfection); R16.0 Hepatomegaly, not elsewhere classified; K76.0 Fatty (change of) liver, not elsewhere classified; M16.0 Bilateral primary osteoarthritis of hip; M17.0 Bilateral primary osteoarthritis of knee; M47.816 Spondylosis without myelopathy or radiculopathy, lumbar region; Z79.51 Long term (current) use of inhaled steroids; Z79.899 Other long term (current) drug therapy; Z91.040 Latex allergy status; K31.89 Other diseases of stomach and duodenum
CPT/HCPCS: 43239; 43774; S2900; 88305

== ENCOUNTER → 2024-06-29 | Outpatient (CLI) | payer OTHER ==
[2024-06-29 11:26] VITALS: BP 139/81; PULSE 80; RESP 16; TEMP 98.3
== END ==
LOC: BARWHC3 10:27
PROVIDERS: ATTEND Surgery Plastic and Reconstructive Surgery
DX: E66.01 Morbid (severe) obesity due to excess calories (principal); Z53.9 Procedure and treatment not carried out, unspecified reason
CPT/HCPCS: 99211

== ENCOUNTER → 2024-11-15 | Outpatient (CLI) | payer OTHER ==
[2024-11-15 15:17] LABS: Basophils # (A) 0.04 X 10*3/uL (0.00-0.10); Basophils % (A) 0.4 %; Eosinophils # (A) 0.24 X 10*3/uL (0.04-0.35); Eosinophils % (A) 2.4 %; HCT 45.7 % (37.2-46.3); HGB 14.6 g/dL (12.0-15.0); Lymphocytes # (A) 2.95 X 10*3/uL (0.90-5.00); Lymphocytes % (A) 30.1 %; MCH 29.2 pg (27.0-32.0); MCHC 31.9 g/dL (32.0-37.0); MCV 91.4 FL (80.0-97.0); Mean Platelet Volume 11.4 FL (9.5-12.2); Monocytes # (A) 0.52 X 10*3/uL (0.20-1.00); Monocytes % (A) 5.3 %; NRBC Per 100 WBC 0 X 10*3/uL (0.00-0.01); Neutrophils # (A) 6.03 X 10*3/uL (1.80-7.70); Neutrophils % (A) 61.6 %; Platelet Count 273 X 10*3/uL (140-440)
[2024-11-15 15:45] LABS: ALT 18 U/L (8-44); AST 18 U/L (13-35); Albumin 3.9 g/dL (3.8-4.9); Alkaline Phosphatase 90 U/L (41-126); Blood Urea Nitrogen 22.8 mg/dL (9.0-27.0); Calcium 9.2 mg/dL (8.7-10.3); Carbon Dioxide 23.8 mmol/L (21.6-31.8); Chloride 105 mmol/L (96-109); Globulin 2.3 g/dL (1.6-3.3); Glucose 90 mg/dL (70-110); Potassium 4.3 mmol/L (3.5-5.5); Sodium 139 mmol/L (135-145); Total Bilirubin 0.5 mg/dL (0.3-1.2); Total Protein 6.2 g/dL (6.2-8.2)
== END | disposition home or self-care (01) ==
LOC: LABPAT 10:50
PROVIDERS: ATTEND Surgery Plastic and Reconstructive Surgery
DX: Z01.812 Encounter for preprocedural laboratory examination (principal)
CPT/HCPCS: 80053; 85025

== ENCOUNTER 2024-11-29 13:18 | Day surgery (SDC) | payer OTHER ==
--- NOTE | 2024-11-29 10:33 | P.GSHP ---
History of Present Illness H&P Date: 11/29/24 CHIEF COMPLAINT: Morbid obesity HISTORY OF PRESENT ILLNESS: Laura Trevino is a 49-year-old female who comes with lifelong morbid obesity. She had adjustable gastric band placement however has intolerance to band adjustments. She is status post removal of adjustable gastric band 06/25/2024. She has been gaining weight since her band removal at least 6 pounds in 4 months. Patient presents for sleeve gastrectomy. Patient given strict weight loss goal of 15 pounds from 297 to 282 pounds. At height of 5 feet 4 inches, her ideal body weight is 144 pounds. Highest post surgical weight 300 pounds. Her body mass index is 51.5. She is at 156 pounds overweight. PAST MEDICAL HISTORY: 1. Morbid obesity due to excess calories 2. Body mass index of 47.3 to 51.5 3. Osteoarthritis of the knees. 4. Osteoarthritis of the lower back. 5. Asthma PAST SURGICAL HISTORY: 1. Cholecystectomy 2. Adjustable gastric band placement 3. Adjustable gastric band removal HOME MEDICATIONS: ALLERGIES: SOCIAL HISTORY: No recent tobacco use. FAMILY HISTORY: No family history of ulcerative colitis disease or Crohn's disease. Family history of morbid obesity. No lupus in the family. No reports of stomach or esophageal cancer. REVIEW OF ORGAN SYSTEMS: CONSTITUTIONAL: At height of 5 feet 4 inches, her ideal body weight is 144 pounds. HEENT: Denies any active troubles with vision or hearing. ENDOCRINE: Has diabetes. Has hypothyroidism. CARDIOVASCULAR: Past reports of palpitations or heart attacks or chest pain. RESPIRATORY: Has daytime somnolence. GASTROINTESTINAL: Denies any bright red blood per rectum. Has gastroesophageal reflux disease. MUSCULOSKELETAL: Has lower back pain and joint pain. Has osteoarthritis of the knees. NEURO: No headaches. No seizure disorders. PSYCH: Has depression. No suicidal ideation. RHEUMATOLOGIC: No lupus. No rheumatoid arthritis. HEMATOLOGIC: Denies any abnormal bleeding or bruising. No personal history of DVTs. SKIN: Has rash. No skin cancer. PHYSICAL EXAM: VITAL SIGNS: Height 5 foot 4 inches, weight 299 pounds. BMI 51.5 GENERAL: Well-developed in no acute distress. HEENT: No scleral icterus. Extraocular movements grossly intact. Hears conversational speech. No nasal drainage. NECK: Supple without lymphadenopathy. CHEST: Nonlabored respirations with equal bilateral excursions. CARDIOVASCULAR: Regular rate and regular rhythm. Distal 2+ pulses. ABDOMEN: Obese, soft, nontender, nondistended. No infection. MUSCULOSKELETAL: No clubbing, cyanosis. NEURO: No focal or lateralizing signs. Cranial nerves 2 through 12 grossly within normal limits. PSYCH: Appropriate affect. Alert and oriented to person, place and time. SKIN: Good skin turgor. Well perfused. ASSESSMENT: 1. Morbid obesity due to excess calories 2. Body mass index of 51.5 3. Osteoarthritis of the knees. 4. Osteoarthritis of the lower back. 5. Asthma 6. Complications from adjustable gastric band 7. Status post adjustable gastric band removal PLAN: 1. Bariatric options between a sleeve and a Marce-en-Y gastric bypass were reviewed in detail. The patient elected for a sleeve gastrectomy over gastric bypass. Robotic assisted approach described. 2. She is status post removal of adjustable gastric band. She is elevated risk. 3. An 8 page second-generation bariatric consent form was reviewed in detail including potential of bleeding, infection, leaks, adequate weight loss, nutritional deficiencies which the patient demonstrated understanding of the risks. 4. A 2 week high-protein low caloric 800 kcal diet described to address hepatomegaly. 5. Preoperative labs including complete metabolic panel and CBC with type and screen recommended. 6. DVT prophylaxis per [place] [facility]. 7. Antibiotic prophylaxis. 8. Inpatient hospitalization anticipated for more than 2 nights. 9. All questions and concerns were addressed with the patient. 10. She is at elevated risk for perioperative complications secondary to adjustable gastric band removal 11. Overall, patient has expressed understanding of bariatric care including postoperative diet and commitment of lifestyle. Patient should benefit from surgical intervention for correction of her morbid obesity. 12. Strict 15 pound weight loss goal of 15 pounds from 300 pounds to 285 pounds advised otherwise for risk of cancellation of her procedure Past Medical History Past Medical History: Asthma, GERD/Reflux Additional Past Medical History / Comment(s): Childhood asthma. SEASONAL ALLERGIES, History of Any Multi-Drug Resistant Organisms: None Reported Past Surgical History: Bariatric Surgery, Cholecystectomy, Hysterectomy Additional Past Surgical History / Comment(s): Lap band, oopherectomy, EGD, COLONOSCOPY, BRONCHIAL WASH 07/2023, LEFT NASAL TUMOR REMOVED, trigger point injection right shoulder. lap band removal 06-25-24 Past Anesthesia/Blood Transfusion Reactions: No Reported Reaction Additional Past Anesthesia/Blood Transfusion Reaction / Comment(s): Family hx unknown, pt adopted. Smoking Status: Never smoker - Past Family History Father Family Medical History: Unable to Obtain Additional Family Medical History / Comment(s): Patient was adopted. Medications and Allergies Home Medications Medication Instructions Recorded Confirmed Type traMADol HCl [Ultram] 50 - 100 mg PO TID PRN 12/09/23 11/23/24 History Albuterol Inhaler [Ventolin Hfa 1 - 2 puff INHALATION Q6H PRN 06/21/24 11/23/24 History Inhaler] Budesonide-Formot 160-4.5 Mcg 2 puff INHALATION BID 06/21/24 11/23/24 History [Symbicort 160-4.5 Mcg Inhaler] Biotin 5,000 mcg PO DAILY 10/31/24 11/23/24 History Cholecalciferol (Vitamin D3) 1 tab PO DAILY 10/31/24 11/23/24 History [Vitamin D3 (50 Mcg = 2000 Iu)] Cyclobenzaprine [Flexeril] 10 mg PO TID PRN 11/23/24 11/23/24 History Allergies Allergy/AdvReac Type Severity Reaction Status Date / Time adhesive tape Allergy Mild Rash/Hives Verified 11/23/24 09:50 cat dander Allergy Dyspnea Verified 11/23/24 09:50 feathers Allergy Dyspnea Verified 11/23/24 09:50 latex Allergy Rash/Hives Verified 11/23/24 09:50 strawberry Allergy Rash/Hives Verified 11/23/24 09:50
[~2024-11-29 13:18] MED LIST changes: +ONDANSETRON 4 MG/2 ML VIAL IVP PRN
[2024-11-29] MEDS: IV FLUID CONTINUATION 1,000 ML IV ONE ×2 (14:18→17:01)
[2024-11-29] MEDS: LACTATED RINGERS 1,000 ML IV SCH (14:33)
[2024-11-29] MEDS: ACETAMINOPHEN TAB 500 MG TAB PO PRN (14:34)
[2024-11-29] MEDS: DEXAMETHASONE SOD PHOSPHATE 4 MG/ML 1 ML VIAL IV ONE (14:34)
[2024-11-29] MEDS: ONDANSETRON 4 MG/2 ML VIAL IVP ONE (14:34)
[2024-11-29] MEDS: ALVIMOPAN 12 MG CAPSULE PO PRN (14:34)
[2024-11-29] MEDS: MIDAZOLAM 2 MG/2 ML VIAL IV ONE (14:55)
[2024-11-29] MEDS: ENOXAPARIN 40 MG/0.4 ML SYRINGE SQ PRN (15:13)
[2024-11-29] MEDS ORDERED: ROCURONIUM 10 MG/ML (5 ML VIAL) IV ONE (15:17)
[2024-11-29] MEDS ORDERED: KETAMINE HCL IN 0.9 % NACL 50 MG/5 ML SYRINGE ONE (15:17)
[2024-11-29] MEDS ORDERED: GLYCOPYRROLATE 0.2 MG/ML 2 ML VIAL ONE (15:17)
[2024-11-29] MEDS ORDERED: SUCCINYLCHOLINE CHLORIDE 200 MG/10 ML VIAL IV ONE (15:17)
[2024-11-29] MEDS ORDERED: DEXAMETHASONE SOD PHOSPHATE 4 MG/ML 1 ML VIAL ONE (15:17)
[2024-11-29] MEDS ORDERED: ROPIVACAINE 5 MG/ML 30 ML VIAL ONE (15:17)
[2024-11-29] MEDS ORDERED: fentaNYL (PF) 50 MCG/ML 2 ML AMP ONE (15:17)
[2024-11-29] MEDS ORDERED: PROPOFOL 10 MG/ML 20 ML VIAL IV ONE (15:17)
[2024-11-29] MEDS ORDERED: MIDAZOLAM 2 MG/2 ML VIAL ONE (15:17)
[2024-11-29] MEDS ORDERED: LIDOCAINE 1% INJ 10MG/ML (20 ML MDV) ONE (15:17)
[2024-11-29] MEDS ORDERED: NEOSTIGMINE 1 MG/ML 10 ML VIAL ONE (15:17)
[2024-11-29] MEDS ORDERED: HYDROmorphone (PF) 1 MG/ML ONE (15:17)
[2024-11-29] MEDS ORDERED: SODIUM CHLORIDE 0.9% (PF) 10 ML VIAL ONE (15:17)
--- NOTE | 2024-11-29 15:17 | P.HPADDEND ---
H&P Addendum H&P Addendum Date: 11/29/24 Patient's boarding slip discussed with scheduling should state robotic sleeve gastrectomy not gastric bypass. Patient is aware she is here for a sleeve gastrectomy. Patient also aware as she did not meet her target weight loss, risk of canceling the procedure was described due to hepatomegaly.
[2024-11-29] MEDS: ceFAZolin 3 GM in SODIUM CHLORIDE 0.9% 100 ML IVPB PRN (15:22)
[2024-11-29] MEDS: BUPIVACAINE (PF) 0.25% 30 ML VIAL SQ ONE (15:46)
[2024-11-29] MEDS ORDERED: NALOXONE 0.4 MG/ML 1 ML VIAL IV PRN (17:49)
[2024-11-29] MEDS ORDERED: HYDROmorphone 1 MG/ML 1 ML SYRINGE IVP PRN (17:50)
[2024-11-29] MEDS ORDERED: diphenhydrAMINE 50 MG/ML 1 ML VIAL IVP PRN (17:55)
--- NOTE | 2024-11-29 17:55 | P.OP ---
Date of Procedure: 11/29/24 Description of Procedure: SURGEON: SILVIA CRAFT MD PREOPERATIVE DIAGNOSES: 1. Morbid obesity due to excess calories 2. Body mass index of 51.5 3. Osteoarthritis of the knees. 4. Osteoarthritis of the lower back. 5. Asthma 6. Complications from adjustable gastric band 7. Status post adjustable gastric band removal POSTOPERATIVE DIAGNOSES: 1. Morbid obesity due to excess calories 2. Body mass index of 51.5 3. Osteoarthritis of the knees. 4. Osteoarthritis of the lower back. 5. Asthma 6. Complications from adjustable gastric band 7. Status post adjustable gastric band removal 8. Perigastric adhesions OPERATION: 1. Robotic assisted daVinci Xi laparoscopic sleeve gastrectomy with 40-Polish bougie, multiport. 2. Robotic assisted daVinci Xi laparoscopic lysis of adhesions 3. Intraoperative esophagogastroduodenoscopy. ANESTHESIA: Gen. local anesthetic, regional ESTIMATED BLOOD LOSS: 10 mL SPECIMENS REMOVED: Sleeve gastrectomy COMPLICATIONS: None. FINDINGS: 1. Negative intraoperative esophagogastrojejunoscopy leak test. 2. No large hiatus hernia. 3. Total of 6 staplers used including 2 - 60 mm green, 4 - 60 mm blue robot loads used to create the gastric sleeve. 4. Sleeve gastrectomy, 24 x 6 cm INDICATIONS:Laura Trevino is a 49-year-old female who comes with lifelong morbid obesity. She had adjustable gastric band placement however had intolerance to band adjustments. She is status post removal of adjustable gastric band 06/25/2024. She has been gaining weight since her band removal at least 6 pounds in 4 months. Patient presents for sleeve gastrectomy. At height of 5 feet 4 inches, her ideal body weight is 144 pounds. Highest post surgical weight 300 pounds. Her body mass index is 51.5. She is at 156 pounds overweight. All surgical options for morbid obesity had been described using the [place] [facility] comorbidity resolution including complication risk score. A second-generation bariatric consent form was described in detail including the possibility of protein malnutrition, leaks, gastric stricture, venous thrombosis, gastroesophageal reflux disease, need for further surgery for which she demonstrated understanding. Benefits and risks of the procedure were described at length. Informed consent was obtained. DESCRIPTION: The patient was brought into the operating room theater. Preoperatively she had received Lovenox subcutaneously for DVT prophylaxis. Additionally she had Peridex oral solution as an oral decontaminant. After general induction, the abdomen was prepped and draped in standard sterile fashion. An Ioban draping was placed along the abdomen. A robotic da Dulce Maria Xi system was prepped and primed. At 15 cm from the xiphoid, proposed port sites were marked with indelible marker along the anterior axillary line bilaterally, mid axillary line bilaterally with each ports were marked 10 to 15 cm from each other. The robotic stapler port was marked for the right midclavicular line. A 5 mm 0 degrees laparoscopic trocar entry was performed along the left upper quadrant. The abdomen was insufflated to 15 mmHg pressure was tolerated well. Diagnostic laparoscopy demonstrated no injury to bowel, viscera, or mesentery. No evidence of large hiatus hernia was identified. The liver edge was sharp consistent with her 2-week high-protein low carbohydrate diet. Moderate adhesions about the proximal stomach and gastric cardia was identified from prior adjustable gastric band. A 8 mm port was placed along the left upper abdominal wall after exchanging the 5 mm port. A separate 8 mm port was placed along the left lateral abdominal wall. Please note that the ports were placed at least 20 cm away from the target anatomy. Care was taken to check each robotic arms were safely away from collision with the bed or the patient. At the epigastrium, a medium sized Trever liver retractor was placed under direct visualization with the Iron Rib Cloth Knitter placed under the right shoulder of the patient. Next, 12-mm robot stapler port was placed along the right upper quadrant. The camera 8-mm port was maintained along the epigastrium. The patient was repositioned in reverse Trendelenburg position at 25-degrees after lowering the bed. The robot was docked along the left side of the patient. Using a grasper for arm 4, a vessel sealer for arm 3, including grasper for arm 1, the robotic system was docked and primed as described. Instruments were interchanged by the car rental sales assistant for stapler loads. The camera was placed at 30- degrees down. I had sat at the console. Perigastric and. Paddock adhesions were addressed using vessel sealer. Along the gastric cardia and posterior stomach, adhesions were carefully taken down as it was identified at the body including their antrum of the stomach posteriorly. Hemostasis was excellent upon the takedown of the short gastrics. The pylorus was identified and 6 cm proximally along the greater curvature of the stomach, the short gastrics were mobilized upwards to the angle of His using a vessel sealer. Hemostasis was excellent during this portion of the procedure. Next, the upper pole of the stomach was adherent to the left abhilash, which was gently dissected free using atraumatic grasper. I went to the head of the bed and placed 40-Polish blunt bougie into the stomach. The bougie was readjusted by the nurse scarfer. Robotic stapler green 60 mm x 2, and blue 60 mm loads x 4 were used to create the sleeve. Initial firing was across the antrum of the stomach towards the angle of His. The staple line was linear without corkscrewing. The space from the angularis incisura of the sleeve was approximately 4 cm. I then went to the head of the bed to perform the intraoperative esophagogastroduodenoscopy leak test. The bougie was withdrawn. The upper pole of the stomach was bathed using normal saline solution. The scope was withdrawn with careful inspection along the staple line for which no leaks were found along the entire length. Additionally,the sleeve was completely hemostatic wit hout any encroachment along the angularis incisura. Its topology was a soft "J". No stricture was encountered upon placement of the scope. The GI tract was desufflated. The patient tolerated this portion of the procedure well. The scope was completely withdrawn. The robot was undocked. I then rescrubbed into case, whereby the irrigation fluid was aspirated from the abdominal cavity. Tisseel fibrin sealant was placed along the entire staple length. Once dried the Trever liver retractor was removed. Attention was now brought to removal of the specimen. The distal end of the sleeve gastrectomy specimen was brought out through the 12 mm port at the left upper quadrant. The specimen was gently removed en total. No contamination had occurred during this process. All instruments and pneumoperitoneum including irrigation fluid was removed from the abdominal cavity. The 12 mm port site was closed using 0-Vicryl and Blu Walsh and irrigated with diluted hydrogen peroxide. The final incisions were closed using subcuticular interrupted suture of 4-0 Monocryl. Exofin was applied to the skin once the skin had been cleansed. OptiFoam dressing was placed along the stomach extraction site. The sleeve specimen was measured and checked also for leaks which none were found. At the end of the procedure, needle, sponge, and instrument count was verified correct by the plastic surgery technician. The patient was taken to the postanesthesia care unit in stable condition. The patient had tolerated the procedure well. Intraoperative films and findings were reviewed with the patient's family.
[2024-11-29] MEDS: SODIUM CHLORIDE 0.9% 1,000 ML IV SCH (17:59)
[2024-11-29] MEDS: droPERidol 2.5 MG/ML VIAL IVP ONE (18:28)
[2024-11-29] MEDS: METOCLOPRAMIDE 5 MG/ML 2 ML VIAL IVP SCH (18:52)
--- NOTE | 2024-11-29 19:49 | P.ANPRN ---
Procedure Note - Anesthesia - Nerve Block Performed Bilateral Erector Spinae Single Time Out Performed: Yes Date of Procedure: 11/29/24 Procedure Start Time: 14:55 Procedure Stop Time: 15:00 Location of Patient: PreOp Indication: Acute Post-Operative Pain, Requested by Surgeon Sedation Type: Sedate with meaningful contact maintained Preparation: Sterile Prep Position: Prone Needle Types: Pajunk Needle Gauge: 21 Ultrasound used to visualize needle placement: Yes Ultrasound used to observe medication spread: Yes Blood Aspirated: No Pain Paresthesia on Injection Noted: No Resistance on Injection: Normal Image Stored and Saved: Yes Events: Uneventful and Well Tolerated (Ropivacaine 0.5% 15 cc plus normal saline 10 cc plus dexamethasone 4 mg given bilaterally at L1)
[2024-11-29] MEDS: SIMETHICONE 40 MG/0.6 ML DROPS 2,000 MG/30 ML BOTTLE PO SCH (19:53)
[2024-11-29] MEDS: HYOSCYAMINE ORAL DROPS 1.875 MG/15 ML BOTTLE PO SCH (19:53)
[2024-11-29] MEDS: SCOPOLAMINE 1 MG/72 HR PATCH TRANSDERM STA (19:54)
[2024-11-29] MEDS: ALBUTEROL NEBULIZED 2.5 MG/3 ML INHALATION SCH (20:39)
[2024-11-29] MEDS: SYMBICORT 160-4.5 MCG INHALER INHALATION SCH (20:40)
[2024-11-29] MEDS: ACETAMINOPHEN IV (For NPO) 1,000 MG in EMPTY BAG 1 BAG IVPB SCH (20:59)
[2024-11-29] MEDS: ONDANSETRON 4 MG/2 ML VIAL IVP SCH (21:00)
[2024-11-29] MEDS: PANTOPRAZOLE 40 MG/10 ML VIAL IVP SCH (21:00)
[2024-11-29] MEDS: 0.9% NACL WITH KCL 20 MEQ/L 1,000 ML IV SCH (21:00)
[2024-11-29] MEDS: DEXAMETHASONE SOD PHOSPHATE 10 MG/ML 1 ML VIAL IVP ONE (21:01)
[2024-11-29] MEDS: fentaNYL PCA 500 MCG/50 ML BAG IV SCH (22:05)
[2024-11-29] MEDS: ceFAZolin 3 GM in SODIUM CHLORIDE 0.9% 100 ML IVPB SCH (22:47)
[2024-11-30] MEDS: DEXAMETHASONE SOD PHOSPHATE 4 MG/ML 1 ML VIAL IVP SCH (02:46)
[2024-11-30 07:56] VITALS: RESP 18
[2024-11-30 08:13] LABS: Basophils # (A) 0.02 X 10*3/uL (0.00-0.10); Basophils % (A) 0.2 %; Eosinophils # (A) 0 X 10*3/uL (0.04-0.35); Eosinophils % (A) 0 %; HCT 44.4 % (37.2-46.3); HGB 14.6 g/dL (12.0-15.0); Lymphocytes # (A) 0.77 X 10*3/uL (0.90-5.00); Lymphocytes % (A) 8.6 %; MCH 29.8 pg (27.0-32.0); MCHC 32.9 g/dL (32.0-37.0); MCV 90.6 FL (80.0-97.0); Mean Platelet Volume 11.8 FL (9.5-12.2); Monocytes # (A) 0.05 X 10*3/uL (0.20-1.00); Monocytes % (A) 0.6 %; NRBC Per 100 WBC 0 X 10*3/uL (0.00-0.01); Neutrophils # (A) 8.04 X 10*3/uL (1.80-7.70); Neutrophils % (A) 90.2 %; Platelet Count 270 X 10*3/uL (140-440); RDW 13.4 % (11.5-14.5); WBC 8.92 X 10*3/uL (4.50-10.00)
[2024-11-30 08:23] LABS: Blood Urea Nitrogen 12.4 mg/dL (9.0-27.0); Calcium 8.1 mg/dL (8.7-10.3); Carbon Dioxide 19.8 mmol/L (21.6-31.8); Chloride 105 mmol/L (96-109); Magnesium 1.7 mg/dL (1.5-2.4); Phosphorus 3.1 mg/dL (2.4-5.1); Potassium 4.5 mmol/L (3.5-5.5); Sodium 138 mmol/L (135-145)
[2024-11-30] MEDS: ENOXAPARIN 40 MG/0.4 ML SYRINGE SQ SCH (08:26)
[2024-11-30] MEDS: 0.9% NACL WITH KCL 20 MEQ/L 1,000 ML IV SCH (08:26)
--- NOTE | 2024-11-30 10:41 | P.PN ---
Subjective Progress Note Date: 11/30/24 CHIEF COMPLAINT: Morbid obesity HISTORY OF PRESENT ILLNESS: The patient is a 49-year-old female status post Place of adhesion with sleeve gastrectomy, 11/29/2024. Overnight, patient did not receive her scheduled nebulizers and breathing treatments including inhalers despite orders being placed. Additionally, this morning patient did not receive her bariatric tray although previously ordered. Additionally, patient reported wheezing and symptomatic asthma despite medications available for her. Ot herwise, patient does report upper appropriate left incisional pain. Pain is tolerable. She reports minimal nausea. ROS: No reports of nausea and vomiting. No bowel movements. No fevers or chills. No new chest pain. No productive sputum PHYSICAL EXAM: VITAL SIGNS: Reviewed CONSTITUTIONAL: Well developed and in no acute distress. EYES: Conjuctivae without sclera icterus. Extraocular movements grossly intact. HEAD, EARS, NOSE, THROAT: Moist buccal mucosa. Head is atraumatic, normoceph alic. Hears conversational speech. No nasal drainage. RESPIRATORY: Non-labored respirations and equal bilateral excursions. CARDIOVASCULAR: Palpable 2+ radial pulses. ABDOMEN: Incision intact. Abdominal binder present. MUSCULOSKELETAL: No gross deformity of the lower extremities noted. No clu bbing. No cyanosis. SKIN: Good skin turgor. Well perfused. NEUROLOGIC: Cranial nerves II through XII grossly intact. No focal or lateralizing signs. PSYCH: Appropriate affect. Alert and oriented to person, place and time. CLINICAL LABS: Reviewed. WBC normal. Magnesium less than 2.0 at 1.7. ASSESSMENT: 1. Morbid obesity excess calories, BMI 49.8 2. Status post sleeve gastrectomy 3. Chronic obstructive pulmonary disease due to asthma PLAN: 1. Will correct her magnesium levels with 3 g IV infusion for goal magnesium level over 2.0 which should also address nausea. 2. Immediate nebulizer treatments scheduled including start of her documented ordered asthmatic medications 3. Anticipated discharge with close outpatient follow-up after magnesium infusions Dictation was produced using [employer] dictation software. Please excuse any grammatical, word or spelling errors. Objective - Vital Signs Vital signs: Vital Signs Temp 98.4 F 11/30/24 07:00 Pulse 103 H 11/30/24 07:00 Resp 18 11/30/24 07:00 BP 129/79 11/30/24 07:00 Pulse Ox 95 11/30/24 07:00 FiO2 Intake & Output 11/29/24 11/30/24 11/30/24 18:59 06:59 18:59 Intake Total 1999 Output Total 10 Balance 1989 Weight 131.6 kg 131.6 kg Intake: IV 1999 Output: Estimated Blood Loss 10 Other: Voiding Method Toilet # Voids 10 # Bowel Movements 0 - Labs CBC & Chem 7: 11/30/24 05:42 11/30/24 05:42 Labs: Abnormal Lab Results - Last 24 Hours (Table) 11/30/24 11/30/24 Range/Units 05:42 05:42 Neutrophils # 8.04 H (1.80-7.70) X 10*3/uL Lymphocytes # 0.77 L (0.90-5.00) X 10*3/uL Monocytes # 0.05 L (0.20-1.00) X 10*3/uL Eosinophils # 0 L (0.04-0.35) X 10*3/uL Carbon Dioxide 19.8 L (21.6-31.8) mmol/L Anion Gap 13.20 H (4.00-12.00) mmol/L Calcium 8.1 L (8.7-10.3) mg/dL
[2024-11-30] MEDS: MAGNESIUM SULFATE-D5W PMX 1 GM in DEXTROSE/WATER 1 100ML.BAG IVPB SCH (11:18)
[2024-11-30 11:29] VITALS: BMI 49.8
--- NOTE | 2024-11-30 13:51 | P.PN ---
Progress Note - Text Progress Note Date: 11/30/24 Patient given magnesium for additional nausea. She felt better with her breathing after nebulizer treatments. Patient stable for discharge with close outpatient follow-up described including notify the bariatric center for any issues including nausea and vomiting abdominal pain over the weekend.
[2024-11-30 14:19] VITALS: BP 112/73; PULSE 82; TEMP 98
[2024-12-01] MEDS ORDERED: bisacodyL 5 MG TABLET.DR PO PRN (08:00)
--- NOTE | 2024-12-01 13:36 | P.DS ---
Providers Date of admission: 11/29/24 13:17 Expected date of discharge: 11/23/24 Attending physician: Yamilet Dee Primary care physician: [facility] Course: POSTOPERATIVE DIAGNOSES: 1. Morbid obesity due to excess calories 2. Body mass index of 51.5 3. Osteoarthritis of the knees. 4. Osteoarthritis of the lower back. 5. Asthma 6. Complications from adjustable gastric band 7. Status post adjustable gastric band removal 8. Perigastric adhesions 9. Hypomagnesia COURSE: Laura Trevino is a 49-year-old female who comes with lifelong morbid obesity. Who has pre-existing history of adjustable gastric band status post removal. Patient had conversion from band to sleeve gastrectomy. Postoperatively, nausea was addressed using magnesium infusion including IV fluid bolus. Patient was giving nebulizers for pre-existing asthma. Prior to discharge, she was tolerating liquids. Pain was tolerable. Bariatric discharge instructions reviewed with outpatient follow-up described within 5 days. Procedures: OPERATION: 1. Robotic assisted daVinci Xi laparoscopic sleeve gastrectomy with 40-Divehi bougie, multiport. 2. Robotic assisted daVinci Xi laparoscopic lysis of adhesions 3. Intraoperative esophagogastroduodenoscopy. ANESTHESIA: Gen. local anesthetic, regional ESTIMATED BLOOD LOSS: 10 mL SPECIMENS REMOVED: Sleeve gastrectomy COMPLICATIONS: None. FINDINGS: 1. Negative intraoperative esophagogastrojejunoscopy leak test. 2. No large hiatus hernia. 3. Total of 6 staplers used including 2 - 60 mm green, 4 - 60 mm blue robot loads used to create the gastric sleeve. 4. Sleeve gastrectomy, 24 x 6 cm Patient Condition at Discharge: Stable Plan - Discharge Summary Discharge Rx Participant: Yes New Discharge Prescriptions: New Simethicone 40 mg/0.6 ml Drops [Mylicon Drops] 40 mg PO PCHS PRN #30 ml PRN Reason: Gas Acetaminophen Tab [Tylenol Tab] 1,000 mg PO Q6HR PRN #30 tablet PRN Reason: Pain Ondansetron Odt [Zofran Odt] 4 mg PO Q8HR PRN #9 tab PRN Reason: Nausea bisacodyL [Dulcolax] 5 mg PO DAILY PRN #10 tab PRN Reason: Constipation Omeprazole [PriLOSEC] 40 mg PO DAILY #30 cap Continue RX: traMADol HCl [Ultram] 50 - 100 mg PO TID PRN PRN Reason: Pain RX: Albuterol Inhaler [Ventolin Hfa Inhaler] 1 - 2 puff INHALATION Q6H PRN PRN Reason: Shortness Of Breath RX: Cholecalciferol (Vitamin D3) [Vitamin D3 (50 Mcg = 2000 Iu)] 1 tab PO DAILY RX: Cyclobenzaprine [Flexeril] 10 mg PO TID PRN PRN Reason: Pain RX: Budesonide-Formot 160-4.5 Mcg [Symbicort 160-4.5 Mcg Inhaler] 2 puff INHALATION BID Discontinued RX: Biotin 5,000 mcg PO DAILY Discharge Medication List RX: traMADol HCl [Ultram] 50 - 100 mg PO TID PRN 12/09/23 [History] RX: Albuterol Inhaler [Ventolin Hfa Inhaler] 1 - 2 puff INHALATION Q6H PRN 06/21/24 [History] RX: Budesonide-Formot 160-4.5 Mcg [Symbicort 160-4.5 Mcg Inhaler] 2 puff INHALATION BID 06/21/24 [History] RX: Cholecalciferol (Vitamin D3) [Vitamin D3 (50 Mcg = 2000 Iu)] 1 tab PO DAILY 10/31/24 [History] RX: Cyclobenzaprine [Flexeril] 10 mg PO TID PRN 11/23/24 [History] Acetaminophen Tab [Tylenol Tab] 1,000 mg PO Q6HR PRN #30 tablet 11/30/24 [Rx] Omeprazole [PriLOSEC] 40 mg PO DAILY #30 cap 11/30/24 [Rx] Ondansetron Odt [Zofran Odt] 4 mg PO Q8HR PRN #9 tab 11/30/24 [Rx] Simethicone 40 mg/0.6 ml Drops [Mylicon Drops] 40 mg PO PCHS PRN #30 ml 11/30/24 [Rx] bisacodyL [Dulcolax] 5 mg PO DAILY PRN #10 tab 11/30/24 [Rx] [place] [facility](s[facility] [facility] 12[facility]03/24 10:00 am Patient Instructions/Handouts: Nutrition after Bariatric Surgery (GEN), Laparoscopic Sleeve Gastrectomy (DC) Activity/Diet/Wound Care/Special Instructions: DO NOT GO TO ER UNTIL AFTER DECEMBER 31. CALL BARIATRIC CENTER FOR ANY ISSUES. Liquid diet only for 2 weeks May Shower. No soaking in bath tubs 2 weeks Continue to use incentive spirometry to prevent pneumonias. Please continue to ambulate at home to prevent blood clots in legs. Please notify your surgeon if you develop nausea and vomiting including new onset of abdominal pain. No lifting over 4 pounds in 4 week Drink 64 oz of fluid daily. Start protein shakes on . Notify bariatric center for temp over 101.0, increased pain, drainage from incisions. No straws or carbonated beverages. Liquid diet only. Sugar content should be less than 6 g to avoid dumping syndrome. Take MOM for constipation. CRUSH, OPEN, OR CUT TABLETS LARGER THAN A SIZE OF A TIC TAC Discharge Disposition: HOME SELF-CARE
--- NOTE | 2024-12-01 13:48 | P.PN ---
Progress Note - Text Progress Note Date: 12/01/24 1341 - 134: Patient contacted at home. She reports increased heartburn today. She still has a scopolamine patch. She also reports increased nausea. She is trying to keep her fluids down. No emesis. Patient asked to keep her scopolamine patch. Additional patches sent to her local pharmacy. Patient is scheduled to obtain IV fluids on Tuesday, 48 hours. Additionally, patient will benefit from Decadron for edema. Swallow study as outpatient prescribed. All questions were addressed. Patient asked to avoid artificial sweeteners and dyes as it can also exacerbate abdominal pain.
== END 2024-11-30 15:20 ==
LOC: OR 13:18 → UNDOADMIN 13:18 → 4SSUR 13:18 → 2ORMAIN 18:25 → OR 11-30 15:20 → UNDODISIN 11-30 15:40
PROVIDERS: ATTEND Surgery Plastic and Reconstructive Surgery
DX: E66.01 Morbid (severe) obesity due to excess calories (principal); G89.18 Other acute postprocedural pain; K66.0 Peritoneal adhesions (postprocedural) (postinfection); K31.89 Other diseases of stomach and duodenum; E83.42 Hypomagnesemia; R11.0 Nausea; M17.0 Bilateral primary osteoarthritis of knee; K21.9 Gastro-esophageal reflux disease without esophagitis; M47.816 Spondylosis without myelopathy or radiculopathy, lumbar region; J44.9 Chronic obstructive pulmonary disease, unspecified; Z68.43 Body mass index [BMI] 50.0-59.9, adult; Z87.19 Personal history of other diseases of the digestive system; Z90.49 Acquired absence of other specified parts of digestive tract; Z90.710 Acquired absence of both cervix and uterus; Z98.890 Other specified postprocedural states; Z79.899 Other long term (current) drug therapy; Z91.040 Latex allergy status; Z91.018 Allergy to other foods; Z91.048 Other nonmedicinal substance allergy status
CPT/HCPCS: 94640 ×2; 97161; 97165; 64468; 86900; 86901; 80051; 82310; 82565; 83735; 84100; 84520; 85025; 86850; 88307; 43775; C1762; J2250; J0330; J1100 ×3; J2710; J2765 ×2; J0690; J2405 ×2; J2003; J1650 ×2; J3010 ×2; J1171; J3475; J2795; J0131 ×2; J2704; J0665; J1596; J2470 ×2

== ENCOUNTER → 2024-12-03 | Outpatient (CLI) | payer OTHER ==
[~2024-12-03] MED LIST changes: -HYDROmorphone 0.5 MG/0.5 ML SYRINGE IVP PRN; -LIDOCAINE 1% (10MG/ML) FOR IV START INTRADERMA PRN; -ONDANSETRON 4 MG/2 ML VIAL IVP PRN; +SODIUM CHLORIDE 0.9% 250 ML in EMPTY BAG 1 BAG IV PRN; +SODIUM CHLORIDE 0.9% 500 ML 500 ML in EMPTY BAG 1 BAG IV PRN
[2024-12-03] MEDS: SODIUM CHLORIDE 0.9% 1,000 ML IV NR (10:38)
[2024-12-03] MEDS: DEXAMETHASONE SOD PHOSPHATE 10 MG/ML 1 ML VIAL IVP ONE (10:39)
[2024-12-03 10:44] VITALS: BP 116/80; PULSE 80; RESP 16; TEMP 98.2
== END ==
LOC: PROCWHC3 10:04
PROVIDERS: ATTEND Surgery Plastic and Reconstructive Surgery
DX: E86.0 Dehydration (principal); Z91.040 Latex allergy status; Z91.048 Other nonmedicinal substance allergy status
CPT/HCPCS: 96361; 96374; J1100; 96360; 96375

== ENCOUNTER → 2024-12-21 | Outpatient (CLI) | payer OTHER ==
[2024-12-21 11:06] VITALS: BP 121/89; PULSE 140; RESP 16; TEMP 98.1; BMI 47.8
== END ==
LOC: BARWHC3 09:19
PROVIDERS: ATTEND Surgery Plastic and Reconstructive Surgery
DX: E66.01 Morbid (severe) obesity due to excess calories (principal); Z91.018 Allergy to other foods; Z91.040 Latex allergy status; Z91.048 Other nonmedicinal substance allergy status; Z68.42 Body mass index [BMI] 45.0-49.9, adult
CPT/HCPCS: 99211

== ENCOUNTER → 2024-12-24 | Outpatient (CLI) | payer OTHER ==
--- NOTE | 2024-12-24 09:05 | US ---
EXAMINATION TYPE: US abdomen limited DATE OF EXAM: 12/24/2024 COMPARISON: NONE CLINICAL INDICATION: Female, 49 years old with history of R10.12 AB PAIN; Pt. had gastric sleeve surg rosalee 3 weeks ago, pain and palpable lump at incision site at LUQ TECHNIQUE: Grayscale and color Doppler imaging of the abdomen was performed. Patients area of concern imaged. There is a 3.9x3.5x3.2cm area of focal hyperechogenicity. No hyperva scularity or distinct fluid collection. FINDINGS: EXAM MEASUREMENTS: IMPRESSION: Postsurgical change at the left upper quadrant incision site. No discrete mass collection identified. Follow-up can be performed. CT can be performed if additional evaluation this time would be of benef it. [facility], , 12/24/2024 9:03 AM
== END | disposition home or self-care (01) ==
LOC: RADUSWWP 07:05
PROVIDERS: ATTEND Surgery Plastic and Reconstructive Surgery
DX: R10.12 Left upper quadrant pain (principal); Z98.890 Other specified postprocedural states
CPT/HCPCS: 76705

== ENCOUNTER → 2024-12-26 | Outpatient (CLI) | payer OTHER ==
--- NOTE | 2024-12-26 11:19 | CT ---
EXAMINATION TYPE: CT abdomen pelvis w con DATE OF EXAM: 12/26/2024 10:30 AM COMPARISON: None. CLINICAL INDICATION: Female, 49 years old with history of R10.84 GENERALIZED ABDOMINAL PAIN, Pain pos t gastric sleeve 3 weeks ago TECHNIQUE: Axial images were obtained from above the diaphragm to the pubic rami in the axial plane a t 5 mm thick sections. Reconstructed images are reviewed on the computer in the coronal plane. CONTRAST: 100 mL of Isovue 300. Study performed with Oral Contrast DLP: 2370.9 mGycm, Automated exposure control for dose reduction was used. FINDINGS: Limited CT sections are obtained the lung bases. The lung bases are clear. Hiatal hernia is present . Gastric sleeve is present. CT ABDOMEN: There is some mild inflammatory changes in the left subcutaneous tissue. Some periumbilic al plantarly type change may be present. This may be related to recent gastric sleeve surgery 3 weeks prior. There is a 1.8 cm area of increased density adjacent to the abdominal wall within the subcuta neous tissues in the periumbilical region. Small hematoma may be present. Exam limited series 5 image 38. Liver: Normal Spleen: Normal Pancreas: Normal Adrenal glands: The adrenal glands are normal. Gallbladder: Normal Kidneys: No masses are evident. No hydronephrosis is present. No cysts are present. Delayed images were obtained through the kidneys, which remain unremarkable. Aorta: Normal Inferior vena cava: Normal. CT PELVIS: Loops of bowel within the abdomen and pelvis are normal. There are loops of bowel which are incom pletely distended or lack oral contrast limiting their evaluation. Appendix: The appendix is not identified. Urinary bladder: Decompressed with limited evaluation. Genitourinary structures: Uterus is not well visualized. Osseous structures: No suspicious lytic or sclerotic lesions. IMPRESSION: 1. There may be a small 1.8 cm hematoma within the subcutaneous tissues adjacent to the abdominal wa ll in the periumbilical region. 2. Mild inflammatory changes likely related to prior laparoscopic surgery. Umbilical left mid abdomen region. 3. No suspicious acute intra-abdominal changes. 4. Hiatal hernia [facility], , 12/26/2024 11:17 AM
== END | disposition home or self-care (01) ==
LOC: RADCTMAIN 09:27
PROVIDERS: ATTEND Surgery Plastic and Reconstructive Surgery
DX: K44.9 Diaphragmatic hernia without obstruction or gangrene (principal); K63.89 Other specified diseases of intestine
CPT/HCPCS: 74177; Q9967

== ENCOUNTER → 2024-12-26 | Outpatient (CLI) | payer OTHER ==
--- NOTE | 2024-12-26 14:05 | P.BASOAP ---
Subjective Progress Note Date: 12/26/24 Use massage ball, high speed 5 - 10 minutes 3x daily at left side. Has GERD. CT reviewed and has hiatal hernia. Stop lemon/[place] water. Wants to use aloe water, coconut. HR of 75. Fluids 100 oz. Feels full after protein shake. She is having bowel movements everyday. Need sodium intake on светлана. Protein 75 grams. FLuids 80 oz. Hiatal hernia - omeprazole. Due labs. Needs food journal. 1 year omeprazole Objective - Vital Signs Vital signs: Intake & Output 12/25/24 12/26/24 12/26/24 18:59 06:59 18:59 Weight 126.552 kg Assessment/Plan Plan: Date: Initial Weight: 104.326 kg Initial BMI: Current Weight: 126.552 kg Current BMI: Type of Surgery: Total Volume in Band: Previous Volume: Volume Removed: Volume Added: Band Size:
[2024-12-26 14:13] VITALS: BP 113/78; PULSE 75; RESP 16; TEMP 98.2; BMI 47.9
== END ==
LOC: BARWHC3 13:37
PROVIDERS: ATTEND Surgery Plastic and Reconstructive Surgery
DX: E66.01 Morbid (severe) obesity due to excess calories (principal); Z91.048 Other nonmedicinal substance allergy status; Z91.040 Latex allergy status; Z91.018 Allergy to other foods; Z68.42 Body mass index [BMI] 45.0-49.9, adult
CPT/HCPCS: 99211